=== PATIENT | male | born 1955 | race Caucasian/White ===

== ENCOUNTER → 2017-07-24 15:35 | Outpatient (CLI) | payer MEDICAID, SELFPAY ==
--- NOTE | 2017-07-24 15:35 | DT_ITS ---
This patient was seen during an EMR downtime July 24, 2017 - July 31, 2017. This patient may have a combination of paper and electronic documentation or all paper documentation. All documentation is viewable within the e-chart portion of [employer] for each patient visit.
[2017-07-30 03:30] LABS: Creatinine, Urine (random) < 13.00 mg/dL (NO RANGE EST.)
[2017-07-30 03:31] LABS: Hematocrit 40.8 % (40-54); Hemoglobin 13.6 g/dl (13.0-16.5); Lymphocyte % 18.7 % (19-41); Mean Corp Hgb Conc 33.3 g/gl (32-36); Mean Corpuscular Hgb 30.4 pg (27.0-32.0); Mean Corpuscular Volume 91.1 fL (80-94); Mean Platelet Vol. 11.3 fl (6.2-12.0); Neutrophil % 63.9 % (47-70); POSITIVE COUNT NO; POSITIVE DIFFERENTIAL NO; POSITIVE MORPHOLOGY NO; Platelet Count 254 K/mm3 (150-450); RBC Distribution Width CV 13.7 % (11.6-14.6); Red Blood Count 4.48 M/mm3 (4.6-6.2); White Blood Count 6.6 K/mm3 (4.4-11.0)
[2017-07-30 03:32] LABS: Absolute Lymphocyte Count 1.24 X10^3/ul (0.83-4.51); Absolute Neutrophil Count 4.3 X10^3/uL (2.0-7.7); Basophil# 0.03 X10^3/uL; Basophil% 0.5 % (0-1); Eosinophil# 0.57 X10^3/uL; Eosinophils% 8.6 % (0-5); Lymphocyte # 1.24 X10^3/ul (4.0); Monocyte# 0.54 X10^3/uL; Monocyte% 8.1 % (0-10); Neutrophil # 4.25 X10^3/uL (2.7-7.7)
[2017-07-30 03:59] LABS: Thyroid Stim Hormone (TSH) 1.66 uIU/mL (0.358-3.74)
== END ==
PROVIDERS: Family Provider Family Medicine; PCP Family Medicine; Visit Provider Family Medicine
DX: F20.9 Schizophrenia, unspecified (principal)
CPT/HCPCS: 36415; 80053; 82043; 82570; 84443; 85025

== ENCOUNTER 2017-08-11 21:48 | Emergency (ER) | payer MEDICAID, SELFPAY ==
[2017-08-11 21:50] VITALS: BP 159/102; PULSE 87; PULSE 91; RESP 18; TEMP 36.7; O2SAT 97; O2SAT 98; BMI 20.3
--- NOTE | 2017-08-11 22:23 | EKG12_ITS ---
Test Reason : BED BUGS Blood Pressure : / mmHG Vent. Rate : 076 BPM Atrial Rate : 076 BPM P-R Int : 152 ms QRS Dur : 074 ms QT Int : 396 ms P-R-T Axes : 045 045 050 degrees QTc Int : 445 ms Normal sinus rhythm Normal ECG Confirmed by ZACHERY MONSON, SILVESTRE ([id number]), news editor DEBBIE PHILLIPS ([id number]) on 08/15/2017 10:18:34 AM Referred By: MR Confirmed By:SILVESTRE BINGHAM MD
--- NOTE | 2017-08-11 22:23 | CT_ITS ---
STUDY: CT BRAIN WITHOUT CONTRAST REASON FOR EXAM: Male, 62 years old. Hallucinations. Schizophrenia. RADIATION DOSAGE (If Supplied By Facility): CTDIvol = ( 60.81 ) mGy, DLP = ( 998.67 ) mGycm TECHNIQUE: Transaxial CT imaging of the brain was performed without administration of intravenous contrast material. Individualized dose optimization techniques were used for this CT. COMPARISON: None. FINDINGS: Normal soft tissue structures. Normal calvarium. Normal size ventricles and extra-axial spaces for the patient's age. Normal white matter tracts of the cerebral hemispheres. Normal basal ganglia and thalami. Normal brainstem. Normal cerebellum. There is no intracranial hemorrhage. There are no findings of an acute ischemic infarction. There is mucoperiosteal inflammatory disease of the paranasal sinuses consistent with mild chronic sinusitis. CT/Brain/Head without Contrast IMPRESSION: Normal unenhanced CT scan of the brain. Electronically Signed: Deon Nixon MD at 23:20 EDT , Service support ,
[2017-08-11 22:34] LABS: Absolute Lymphocyte Count 0.89 X10^3/ul (0.83-4.51); Absolute Neutrophil Count 7.4 X10^3/uL (2.0-7.7); Basophil# 0.02 X10^3/uL; Basophil% 0.2 % (0-1); Eosinophils% 3.2 % (0-5); Hematocrit 37.6 % (40-54); Lymphocyte # 0.89 X10^3/ul (4.0); Lymphocyte % 9.5 % (19-41); Mean Corp Hgb Conc 34.6 g/gl (32-36); Mean Corpuscular Volume 86.6 fL (80-94); Mean Platelet Vol. 8.4 fl (6.2-12.0); Monocyte# 0.74 X10^3/uL; Monocyte% 7.9 % (0-10); Neutrophil % 79.1 % (47-70); Platelet Count 356 K/mm3 (150-450); RBC Distribution Width CV 12.8 % (11.6-14.6); RBC Distribution Width SD 41.1 fl (35.1-43.9); Red Blood Count 4.34 M/mm3 (4.6-6.2); White Blood Count 9.4 K/mm3 (4.4-11.0)
[2017-08-11 22:35] LABS: POSITIVE COUNT NO; POSITIVE DIFFERENTIAL NO; POSITIVE MORPHOLOGY NO
--- NOTE | 2017-08-11 22:40 | RAD_ITS ---
STUDY: X-RAY CHEST REASON FOR EXAM: Male, 62 years old. Increased hallucinations and delusions. TECHNIQUE: Single AP portable view of the chest. COMPARISON: None. FINDINGS: The lungs are clear and expanded. There is no demonstrated pleural abnormality. Normal size heart. Normal mediastinum and mark. Normal visualized pulmonary arteries. There is atherosclerotic tortuosity of the aortic arch and descending thoracic aorta. Normal visualized thoracic spine. Normal visualized ribs, clavicles, and shoulders. There is no demonstrated abnormality of the visualized soft tissue structures of the upper abdomen. RAD/Chest 1 View (Portable) IMPRESSION: No acute cardiopulmonary findings. Negative for consolidation, focal atelectasis, cardiomegaly or pleural effusion. Electronically Signed: Vanessa Pollock MD at 23:31 EDT , Service support ,
[2017-08-11 22:42] LABS: Bacteria 0 SEEN /hpf (None Seen); Mucous, Urine 0 SEEN /hpf (<or=2+); Red Blood Cells-Urine 0 SEEN /hpf (0-5); White Blood Cells 0 SEEN /hpf (0-5)
[2017-08-11 22:44] LABS: Color, Urine Yellow (Yellow); Glucose, Dipstick Normal (Normal); Ketone-Dipstick 5 mg/dl (Negative); Leukocyte Esterase-Dipstick Negative /ul (Negative); Nitrite-Dipstick Negative (Negative); Occult Blood-Urine 10 /ul (Negative); Protein-Dipstick Negative (Negative); Specific Gravity, Urine 1.005 (1.002-1.030); Urine Bilirubin Dipstick Negative (Negative); Urine Clarity Clear (Clear); Urine Urobilinogen Normal (Normal)
[2017-08-11 22:50] LABS: Squamous Epithelial Cells - UA 0-5 SEEN /hpf (0-5)
[2017-08-11 22:59] LABS: ALB/GLOB Ratio 0.8 RATIO (0.9-2.4); AST(SGOT) 17 U/L (15-37); Alanine Aminotransfer ALT/SGPT 21 U/L (16-61); Albumin, Serum 3.7 g/dL (3.2-5.0); Alkaline Phosphatase 79 U/L (45-117); Anion Gap 6 (5-15); BUN 9 mg/dL (7-18); BUN/Creat Ratio 9.6 RATIO (10-20); Calcium,Total 8.8 mg/dL (8.5-10.1); Chloride 93 mmol/L (98-107); Creatinine, Serum 0.94 mg/dL (0.70-1.30); EST Glomerular Filtration Rate 86 mL/min (>60); Est Glom Filt Rate - Afr Amer 104 mL/min (>60); Globulin 4.4 g/dL (2.2-4.2); Glucose 140 mg/dL (74-106); Potassium 3.1 mmol/L (3.5-5.1); Protein, Total 8.1 g/dL (6.4-8.2); Sodium Level 129 mmol/L (136-145); Thyroid Stim Hormone (TSH) 0.65 uIU/mL (0.358-3.74)
[2017-08-11 23:01] LABS: Amphetamine Urine VISTA NEGATIVE (<1000 ng/mL); Barbiturate Urine VISTA NEGATIVE (< 200 ng/mL); Benzodiazepine Urine VISTA NEGATIVE (< 200 ng/mL); Cocaine Urine VISTA NEGATIVE (< 300 ng/mL); Ecstacy Urine VISTA NEGATIVE (< 500 ng/mL); Methadone Urine VISTA NEGATIVE (< 300 ng/mL); PCP Urine VISTA NEGATIVE (< 25 ng/mL); THC Urine VISTA NEGATIVE (< 50 ng/mL); Vista UDS pH Range 7
[2017-08-11 23:10] VITALS: BP 172/87; PULSE 79; RESP 16; O2SAT 96
[2017-08-11] MEDS: 0.9% Normal Saline 1,000 ML 999 ML IV (23:57)
[2017-08-12 01:26] VITALS: BP 172/88; PULSE 80; RESP 17; O2SAT 97
--- NOTE | 2017-08-12 01:40 | ED.RN ---
PT WAS GIVEN A COMPLETE BATH AND MOVED TO A CLEAN ROOM. NO BED BUGS SEEN AT THIS TIME.
[2017-08-12 02:29] VITALS: RESP 18; O2SAT 99
--- NOTE | 2017-08-12 02:29 | ED.VISSUMM ---
- ER Visit Summary Date of Service: 08/12/17 Chief Complaint: Psychiatric evaluation History of Present Illness: The patient is a 62 M presenting for psych eval. Patient has an underlying history of dementia and schizophrenia. He used to be institutionalized in [place] but the hospital closed. Family states that over the course of the last 2 weeks he has been having worsening delusions. Today he was having episodes where he would not talk to them and also was laying on the ground and would not move. They deny any recent infectious signs or symptoms associated with this. History is unable to be obtained from the patient. Physical Examination: Vital signs are within normal limits except for mild hypertension 172/88, patient is afebrile. General: Patient is well-nourished well-developed and in no acute distress. Head: Normocephalic, atraumatic Eyes: Pupils equal round and reactive bilaterally, extra occular motion intact bialterally ENT: Moist mucous membranes Neck: Supple, no lymphadenopathy, no JVD, no meningismus CVS: Heart regular rate and rhythm, no murmurs, rubs or gallops, radial pulses 2+ bilaterally Resp: Respirations nondistressed, lung sounds clear bilaterally Abdomen: Soft, nontender, nondistended, no palpable masses, normal bowel sounds Back: Nontender Extremities: Nontender, atraumatic, active full range of motion, no peripheral edema Skin: warm, no rashes, no petechia Neuro: Alert and oriented x 4, CN 2-12 intact, no lateralizing neurological defecits Psyc: Patient's mood is labile with incoherent thoughts delusions poor insight and poor judgment Test Results: EKG shows sinus rhythm [address] segments normal T waves. CBC liver panel urinalysis toxicology ethanol screens unremarkable. Chemistry shows mild hyponatremia 129 mild hypokalemia 3.1, chest x-ray shows chronic changes CT of the brain negative Emergency Department Course and Treatment: Patient presented for psychiatric evaluation. He very clearly has a psychotic break at this time. He was mildly hyponatremic and hypokalemic and these were dressed in the emergency department he was cleared for psychiatric evaluation. Patient will be transferred to a psychiatric center for further treatment Disposition: Transfer Impression: 1. Psychosis This note was generated with [employer] software. It may contain incorrect words, spelling, and punctuation that were not noted in review of the chart prior to signing ED Disposition - Plan for ED Patient: Chief Complaint: Mental Health Referrals: Javid Graf MD [Primary Care Provider] -
[2017-08-12 03:03] VITALS: BP 143/90; PULSE 80; PULSE 90; RESP 18; O2SAT 95; O2SAT 98
== END 2017-08-12 03:08 ==
LOC: ED 22:03
PROVIDERS: Emergency Provider Emergency Medicine; Family Provider Family Medicine; PCP Family Medicine
DX: F29 Unspecified psychosis not due to a substance or known physiological condition (principal); F20.9 Schizophrenia, unspecified; F03.90 Unspecified dementia, unspecified severity, without behavioral disturbance, psychotic disturbance, mood disturbance, and anxiety; I10 Essential (primary) hypertension; E87.1 Hypo-osmolality and hyponatremia; E87.6 Hypokalemia; Z79.82 Long term (current) use of aspirin; Z79.899 Other long term (current) drug therapy
CPT/HCPCS: 70450; 71045; 80053; 80307; 80320; 81001; 84443; 84484; 85025; 93005; 99283; J7030; A4216; G0480

== ENCOUNTER → 2018-07-30 15:11 | Outpatient (CLI) | payer MEDICAID, SELFPAY ==
[2018-07-30 16:08] LABS: Absolute Lymphocyte Count 0.96 X10^3/ul (0.83-4.51); Absolute Neutrophil Count 3.7 X10^3/uL (2.0-7.7); Basophil# 0.02 X10^3/uL; Basophil% 0.4 % (0-1); Eosinophil# 0.22 X10^3/uL; Eosinophils% 4.2 % (0-5); Hematocrit 34.8 % (40-54); Hemoglobin 12.2 g/dl (13.0-16.5); Lymphocyte # 0.96 X10^3/ul (4.0); Lymphocyte % 18.2 % (19-41); Mean Corp Hgb Conc 35.1 g/gl (32-36); Mean Corpuscular Hgb 30.7 pg (27.0-32.0); Mean Corpuscular Volume 87.4 fL (80-94); Mean Platelet Vol. 8.3 fl (6.2-12.0); Monocyte# 0.39 X10^3/uL; Monocyte% 7.4 % (0-10); Neutrophil # 3.67 X10^3/uL (2.7-7.7); Neutrophil % 69.6 % (47-70); Platelet Count 292 K/mm3 (150-450); RBC Distribution Width CV 12.3 % (11.6-14.6); RBC Distribution Width SD 39.6 fl (35.1-43.9); Red Blood Count 3.98 M/mm3 (4.6-6.2); White Blood Count 5.3 K/mm3 (4.4-11.0)
[2018-07-30 16:09] LABS: POSITIVE COUNT NO; POSITIVE DIFFERENTIAL NO; POSITIVE MORPHOLOGY NO
[2018-07-30 16:37] LABS: Valproic Acid (Depakene) Level 4 ug/mL (50-100)
[2018-07-30 16:46] LABS: ALB/GLOB Ratio 0.8 RATIO (0.9-2.4); AST(SGOT) 16 U/L (15-37); Alanine Aminotransfer ALT/SGPT 22 U/L (16-61); Albumin, Serum 3.3 g/dL (3.2-5.0); Alkaline Phosphatase 69 U/L (45-117); Anion Gap 10 (5-15); BUN 8 mg/dL (7-18); BUN/Creat Ratio 9.8 RATIO (10-20); Calcium,Total 8.3 mg/dL (8.5-10.1); Chloride 101 mmol/L (98-107); Creatinine, Serum 0.82 mg/dL (0.70-1.30); EST Glomerular Filtration Rate 100 mL/min (>60); Est Glom Filt Rate - Afr Amer 122 mL/min (>60); Globulin 4.1 g/dL (2.2-4.2); Glucose 93 mg/dL (74-106); Potassium 3.7 mmol/L (3.5-5.1); Protein, Total 7.4 g/dL (6.4-8.2); Sodium Level 137 mmol/L (136-145); Thyroid Stim Hormone (TSH) 0.45 uIU/mL (0.358-3.74)
== END ==
PROVIDERS: Family Provider Family Medicine; PCP Family Medicine; Visit Provider Family Medicine
DX: F20.9 Schizophrenia, unspecified (principal); G47.20 Circadian rhythm sleep disorder, unspecified type
CPT/HCPCS: 36415; 80053; 80164; 84443; 85025

== ENCOUNTER → 2018-08-27 13:51 | Outpatient (CLI) | payer MEDICAID, SELFPAY ==
[2018-08-27 15:38] LABS: Absolute Lymphocyte Count 0.79 X10^3/ul (0.83-4.51); Absolute Neutrophil Count 4.4 X10^3/uL (2.0-7.7); Basophil# 0.01 X10^3/uL; Basophil% 0.2 % (0-1); Eosinophil# 0.14 X10^3/uL; Eosinophils% 2.4 % (0-5); Hematocrit 32.1 % (40-54); Hemoglobin 11.5 g/dl (13.0-16.5); Lymphocyte # 0.79 X10^3/ul (4.0); Lymphocyte % 13.3 % (19-41); Mean Corp Hgb Conc 35.8 g/gl (32-36); Mean Corpuscular Hgb 30.3 pg (27.0-32.0); Mean Corpuscular Volume 84.5 fL (80-94); Mean Platelet Vol. 10.2 fl (6.2-12.0); Monocyte# 0.62 X10^3/uL; Monocyte% 10.5 % (0-10); Neutrophil # 4.35 X10^3/uL (2.7-7.7); Neutrophil % 73.3 % (47-70); Platelet Count 185 K/mm3 (150-450); RBC Distribution Width CV 12.1 % (11.6-14.6); RBC Distribution Width SD 36.6 fl (35.1-43.9); White Blood Count 5.9 K/mm3 (4.4-11.0)
[2018-08-27 15:43] LABS: POSITIVE COUNT NO; POSITIVE DIFFERENTIAL NO; POSITIVE MORPHOLOGY NO
[2018-08-27 15:50] LABS: ALB/GLOB Ratio 0.9 RATIO (0.9-2.4); AST(SGOT) 22 U/L (15-37); Alanine Aminotransfer ALT/SGPT 20 U/L (16-61); Alkaline Phosphatase 55 U/L (45-117); Anion Gap 10 (5-15); BUN 6 mg/dL (7-18); BUN/Creat Ratio 8.7 RATIO (10-20); Calcium,Total 8.1 mg/dL (8.5-10.1); Chloride 86 mmol/L (98-107); Creatinine, Serum 0.69 mg/dL (0.70-1.30); Creatinine, Urine (random) < 13.00 mg/dL (NO RANGE EST.); EST Glomerular Filtration Rate 122 mL/min (>60); Est Glom Filt Rate - Afr Amer 147 mL/min (>60); Globulin 3.5 g/dL (2.2-4.2); Glucose 75 mg/dL (74-106); Microalbumin,Random Urine < 5.0 mg/L (NO RANGE EST.); Potassium 2.9 mmol/L (3.5-5.1); Protein, Total 6.5 g/dL (6.4-8.2); Sodium Level 125 mmol/L (136-145); Thyroid Stim Hormone (TSH) 0.54 uIU/mL (0.358-3.74)
== END ==
PROVIDERS: Family Provider Family Medicine; PCP Family Medicine; Visit Provider Family Medicine
DX: F20.9 Schizophrenia, unspecified (principal)
CPT/HCPCS: 36415; 80053; 82043; 82570; 84443; 85025

== ENCOUNTER → 2018-08-29 13:41 | Outpatient (CLI) | payer MEDICAID, SELFPAY ==
[2018-08-29 15:33] LABS: Urine Sodium 14 mmol/L (Not Establ.)
[2018-08-29 15:44] LABS: Anion Gap 8 (5-15); BUN 5 mg/dL (7-18); BUN/Creat Ratio 6.9 RATIO (10-20); Calcium,Total 8.2 mg/dL (8.5-10.1); Chloride 94 mmol/L (98-107); Creatinine, Serum 0.72 mg/dL (0.70-1.30); EST Glomerular Filtration Rate 116 mL/min (>60); Est Glom Filt Rate - Afr Amer 140 mL/min (>60); Glucose 82 mg/dL (74-106); Magnesium 1.8 mg/dL (1.6-2.6); Potassium 3.5 mmol/L (3.5-5.1); Sodium Level 130 mmol/L (136-145)
== END ==
PROVIDERS: Family Provider Family Medicine; PCP Family Medicine; Visit Provider Family Medicine
DX: E87.8 Other disorders of electrolyte and fluid balance, not elsewhere classified (principal)
CPT/HCPCS: 36415; 80048; 83735; 84300

== ENCOUNTER → 2018-12-24 16:16 | Outpatient (CLI) | payer MEDICAID, SELFPAY ==
[2018-12-24 17:32] LABS: Hematocrit 42.1 % (40-54); Hemoglobin 13.6 g/dL (13.0-16.5); Mean Corp Hgb Conc 32.3 g/dL (32-36); Mean Corpuscular Hgb 30.2 pg (27.0-32.0); Mean Corpuscular Volume 93.6 fL (80-94); Mean Platelet Vol. 9.4 fl (6.2-12.0); Platelet Count 251 K/mm3 (150-450); RBC Distribution Width SD 44.5 fl (35.1-43.9); White Blood Count 6.6 K/mm3 (4.4-11.0)
[2018-12-24 18:23] LABS: ALB/GLOB Ratio 0.9 RATIO (0.9-2.4); AST(SGOT) 11 U/L (15-37); Alanine Aminotransfer ALT/SGPT 22 U/L (16-61); Albumin, Serum 3.5 g/dL (3.2-5.0); Alkaline Phosphatase 83 U/L (45-117); Anion Gap 8 (5-15); BUN 11 mg/dL (7-18); BUN/Creat Ratio 8.5 RATIO (10-20); Chloride 106 mmol/L (98-107); Creatinine, Serum 1.29 mg/dL (0.70-1.30); EST Glomerular Filtration Rate 59 mL/min (>60); Est Glom Filt Rate - Afr Amer 72 mL/min (>60); Globulin 3.9 g/dL (2.2-4.2); Glucose 94 mg/dL (74-106); Potassium 3.7 mmol/L (3.5-5.1); Protein, Total 7.4 g/dL (6.4-8.2); Sodium Level 142 mmol/L (136-145); T4 Free Direct 0.77 ng/dL (0.76-1.46); Thyroid Stim Hormone (TSH) 1.84 uIU/mL (0.358-3.74)
== END ==
PROVIDERS: Family Provider Family Medicine; PCP Family Medicine; Visit Provider Family Medicine
DX: F20.9 Schizophrenia, unspecified (principal)
CPT/HCPCS: 36415; 80053; 80178; 84439; 84443; 85027

== ENCOUNTER → 2019-03-25 16:11 | Outpatient (CLI) | payer MEDICAID, SELFPAY ==
[2019-03-25 17:34] LABS: Absolute Lymphocyte Count 1.12 X10^3/uL (0.83-4.51); Absolute Neutrophil Count 5.3 X10^3/uL (2.0-7.7); Basophil# 0.04 X10^3/uL; Basophil% 0.6 % (0-1); Eosinophil# 0.29 X10^3/uL; Eosinophils% 4.1 % (0-5); Hematocrit 36.7 % (40-54); Lymphocyte # 1.12 X10^3/ul (4.0); Lymphocyte % 15.7 % (19-41); Mean Corp Hgb Conc 32.7 g/dL (32-36); Mean Corpuscular Hgb 30.8 pg (27.0-32.0); Mean Corpuscular Volume 94.3 fL (80-94); Monocyte# 0.42 X10^3/uL; Monocyte% 5.9 % (0-10); NRBC Flagged by Analyzer 0 % (0-5); Neutrophil # 5.25 X10^3/uL (2.7-7.7); Neutrophil % 73.4 % (47-70); Platelet Count 296 K/mm3 (150-450); RBC Distribution Width CV 13.4 % (11.6-14.6); RBC Distribution Width SD 46.3 fl (35.1-43.9); Red Blood Count 3.89 M/mm3 (4.6-6.2); White Blood Count 7.1 K/mm3 (4.4-11.0)
[2019-03-25 17:43] LABS: Erythrocyte Sedimentation Rate 8 mm/hr (0-20)
[2019-03-25 18:11] LABS: ALB/GLOB Ratio 0.9 RATIO (0.9-2.4); AST(SGOT) 9 U/L (15-37); Alanine Aminotransfer ALT/SGPT 18 U/L (16-61); Albumin, Serum 3.4 g/dL (3.2-5.0); Alkaline Phosphatase 97 U/L (45-117); Anion Gap 2 (5-15); BUN 13 mg/dL (7-18); BUN/Creat Ratio 9.8 RATIO (10-20); Calcium,Total 8.7 mg/dL (8.5-10.1); Chloride 107 mmol/L (98-107); Creatinine, Serum 1.33 mg/dL (0.70-1.30); EST Glomerular Filtration Rate 57 mL/min (>60); Est Glom Filt Rate - Afr Amer 69 mL/min (>60); Globulin 3.6 g/dL (2.2-4.2); Glucose 102 mg/dL (74-106); Potassium 3.7 mmol/L (3.5-5.1); Sodium Level 137 mmol/L (136-145)
== END ==
PROVIDERS: PCP Family Medicine; Referring Provider Family Medicine; Visit Provider Family Medicine
DX: R63.4 Abnormal weight loss (principal); F20.9 Schizophrenia, unspecified
CPT/HCPCS: 36415; 80053; 80178; 84443; 85025; 85652

== ENCOUNTER → 2019-05-06 11:44 | Outpatient (CLI) | payer MEDICAID, SELFPAY ==
[2019-05-06 15:46] LABS: Absolute Lymphocyte Count 0.82 X10^3/uL (0.83-4.51); Absolute Neutrophil Count 5.4 X10^3/uL (2.0-7.7); Basophil# 0.04 X10^3/uL; Basophil% 0.6 % (0-1); Eosinophil# 0.38 X10^3/uL; Eosinophils% 5.4 % (0-5); Hematocrit 39.2 % (40-54); Hemoglobin 12.5 g/dL (13.0-16.5); Lymphocyte # 0.82 X10^3/ul (4.0); Lymphocyte % 11.7 % (19-41); Mean Corp Hgb Conc 31.9 g/dL (32-36); Mean Corpuscular Hgb 31.2 pg (27.0-32.0); Mean Corpuscular Volume 97.8 fL (80-94); Mean Platelet Vol. 9.6 fl (6.2-12.0); Monocyte# 0.36 X10^3/uL; Monocyte% 5.1 % (0-10); NRBC Flagged by Analyzer 0 % (0-5); Neutrophil # 5.42 X10^3/uL (2.7-7.7); Neutrophil % 77.1 % (47-70); Platelet Count 335 K/mm3 (150-450); RBC Distribution Width CV 14.5 % (11.6-14.6); RBC Distribution Width SD 52.2 fl (35.1-43.9); Red Blood Count 4.01 M/mm3 (4.6-6.2)
[2019-05-06 16:14] LABS: AST(SGOT) 29 U/L (15-37); Alanine Aminotransfer ALT/SGPT 23 U/L (16-61); Albumin, Serum 3.9 g/dL (3.2-5.0); Alkaline Phosphatase 91 U/L (45-117); Anion Gap 7 (5-15); BUN 17 mg/dL (7-18); Calcium,Total 8.9 mg/dL (8.5-10.1); Chloride 103 mmol/L (98-107); Creatinine, Serum 1.06 mg/dL (0.70-1.30); EST Glomerular Filtration Rate 74 mL/min (>60); Est Glom Filt Rate - Afr Amer 90 mL/min (>60); Globulin 3.9 g/dL (2.2-4.2); Glucose 74 mg/dL (74-106); Potassium 3.4 mmol/L (3.5-5.1); Protein, Total 7.8 g/dL (6.4-8.2); Sodium Level 137 mmol/L (136-145)
== END ==
PROVIDERS: PCP Family Medicine; Referring Provider Family Medicine; Visit Provider Family Medicine
DX: F20.9 Schizophrenia, unspecified (principal)
CPT/HCPCS: 36415; 80053; 80178; 85025

== ENCOUNTER → 2019-06-19 16:49 | Outpatient (CLI) | payer MEDICAID, SELFPAY ==
[2019-06-19 17:35] LABS: Absolute Neutrophil Count 7.4 X10^3/uL (2.0-7.7); Basophil# 0.03 X10^3/uL; Basophil% 0.3 % (0-1); Eosinophil# 0.12 X10^3/uL; Eosinophils% 1.3 % (0-5); Hematocrit 40.5 % (40-54); Mean Corp Hgb Conc 32.1 g/dL (32-36); Mean Corpuscular Volume 96.4 fL (80-94); Mean Platelet Vol. 8.8 fl (6.2-12.0); Monocyte# 0.49 X10^3/uL; Monocyte% 5.3 % (0-10); NRBC Flagged by Analyzer 0 % (0-5); Neutrophil # 7.35 X10^3/uL (2.7-7.7); Neutrophil % 79.8 % (47-70); Platelet Count 361 K/mm3 (150-450); RBC Distribution Width CV 13.2 % (11.6-14.6); RBC Distribution Width SD 46.9 fl (35.1-43.9); White Blood Count 9.2 K/mm3 (4.4-11.0)
[2019-06-19 18:09] LABS: AST(SGOT) 18 U/L (15-37); Alanine Aminotransfer ALT/SGPT 18 U/L (16-61); Albumin, Serum 3.9 g/dL (3.2-5.0); Alkaline Phosphatase 84 U/L (45-117); Anion Gap 8 (5-15); BUN 10 mg/dL (7-18); BUN/Creat Ratio 10.4 RATIO (10-20); Calcium,Total 9.1 mg/dL (8.5-10.1); Chloride 105 mmol/L (98-107); Creatinine, Serum 0.96 mg/dL (0.70-1.30); EST Glomerular Filtration Rate 83 mL/min (>60); Est Glom Filt Rate - Afr Amer 101 mL/min (>60); Glucose 89 mg/dL (74-106); Potassium 3.2 mmol/L (3.5-5.1); Protein, Total 7.9 g/dL (6.4-8.2); Sodium Level 139 mmol/L (136-145)
== END ==
PROVIDERS: PCP Family Medicine; Referring Provider Family Medicine; Visit Provider Family Medicine
DX: F20.9 Schizophrenia, unspecified (principal)
CPT/HCPCS: 36415; 80053; 80178; 85025

== ENCOUNTER → 2019-07-10 17:00 | Outpatient (CLI) | payer MEDICAID, SELFPAY ==
[2019-07-10 18:48] LABS: ALB/GLOB Ratio 0.9 RATIO (0.9-2.4); AST(SGOT) 13 U/L (15-37); Alanine Aminotransfer ALT/SGPT 17 U/L (16-61); Albumin, Serum 3.4 g/dL (3.2-5.0); Alkaline Phosphatase 73 U/L (45-117); Anion Gap 6 (5-15); BUN 12 mg/dL (7-18); BUN/Creat Ratio 13.3 RATIO (10-20); Calcium,Total 8.9 mg/dL (8.5-10.1); Chloride 108 mmol/L (98-107); EST Glomerular Filtration Rate 89 mL/min (>60); Est Glom Filt Rate - Afr Amer 108 mL/min (>60); Globulin 3.8 g/dL (2.2-4.2); Glucose 89 mg/dL (74-106); Magnesium 2.3 mg/dL (1.6-2.6); Potassium 3.6 mmol/L (3.5-5.1); Protein, Total 7.2 g/dL (6.4-8.2); Sodium Level 141 mmol/L (136-145)
== END ==
PROVIDERS: PCP Family Medicine; Referring Provider Family Medicine; Visit Provider Family Medicine
DX: F20.9 Schizophrenia, unspecified (principal)
CPT/HCPCS: 36415; 80053; 80178; 83735

== ENCOUNTER → 2019-12-17 14:27 | Outpatient (CLI) | payer MEDICAID, SELFPAY ==
[2019-12-17 17:52] LABS: Hematocrit 40.4 % (40-54); Hemoglobin 12.5 g/dL (13.0-16.5); Mean Corp Hgb Conc 30.9 g/dL (32-36); Mean Corpuscular Hgb 30.1 pg (27.0-32.0); Mean Corpuscular Volume 97.3 fL (80-94); Mean Platelet Vol. 10.5 fl (6.2-12.0); Platelet Count 296 K/mm3 (150-450); RBC Distribution Width CV 13.2 % (11.6-14.6); RBC Distribution Width SD 47.2 fl (35.1-43.9); Red Blood Count 4.15 M/mm3 (4.6-6.2); White Blood Count 4.6 K/mm3 (4.4-11.0)
[2019-12-17 18:17] LABS: ALB/GLOB Ratio 0.9 RATIO (0.9-2.4); AST(SGOT) 14 U/L (15-37); Alanine Aminotransfer ALT/SGPT 19 U/L (16-61); Albumin, Serum 3.7 g/dL (3.2-5.0); Alkaline Phosphatase 80 U/L (45-117); Anion Gap 7 (5-15); BUN 10 mg/dL (7-18); BUN/Creat Ratio 10.5 RATIO (10-20); Calcium,Total 8.5 mg/dL (8.5-10.1); Chloride 108 mmol/L (98-107); Creatinine, Serum 0.96 mg/dL (0.70-1.30); EST Glomerular Filtration Rate 84 mL/min (>60); Est Glom Filt Rate - Afr Amer 101 mL/min (>60); Glucose 88 mg/dL (74-106); Potassium 3.7 mmol/L (3.5-5.1); Protein, Total 7.7 g/dL (6.4-8.2); Sodium Level 142 mmol/L (136-145); Thyroid Stim Hormone (TSH) 2.27 uIU/mL (0.358-3.74)
== END ==
PROVIDERS: PCP Family Medicine; Referring Provider Family Medicine; Visit Provider Family Medicine
DX: F20.9 Schizophrenia, unspecified (principal)
CPT/HCPCS: 36415; 80053; 80178; 84443; 85027

== ENCOUNTER 2020-08-05 14:19 | Emergency (ER) | payer MEDICAID, SELFPAY ==
[2020-08-05 14:20] VITALS: BP 132/88; PULSE 77; RESP 15; TEMP 37; O2SAT 98; BMI 19.3
--- NOTE | 2020-08-05 14:34 | RAD_ITS ---
STUDY: X-RAY CHEST REASON FOR EXAM: Male, 65 years old. Cough TECHNIQUE: Single AP portable view of the chest. COMPARISON: Comparison is made with prior study dated the 2017. FINDINGS: Focal atelectasis and/or infiltrate in the left lower lobe. There is no demonstrated pleural abnormality. Normal size heart. Normal mediastinum and mark. Normal visualized pulmonary arteries. Normal visualized aortic arch and descending thoracic aorta. Normal visualized thoracic spine. Normal visualized ribs, clavicles, and shoulders. There is no demonstrated abnormality of the visualized soft tissue structures of the upper abdomen. RAD/Chest 1 View (Portable) IMPRESSION: Focal atelectasis and/or infiltrate in the left lower lobe. Electronically Signed: Luis Rayo MD at 15:00 EDT , Service support ,
--- NOTE | 2020-08-05 14:34 | EX.ED.DYSGE1 ---
HPI History of Present Illness Chief Complaint: Cough Informant: patient and family Narrative Narrative: 65-year-old male states that he has a family member that is admitted to the hospital with Covid. He states that he has developed a cough for the past several days. He notes dry mouth but no other symptoms. He notes the cough is nonproductive. He states that he was informed he should come to the emergency room and be tested for Covid PFS PFS Home Medications aspirin 325 mg PO DAILY@0800 08/11/17 [History Last Taken Unknown] famotidine [Pepcid] 20 mg PO BID 08/11/17 [History Last Taken Unknown] guanfacine 2 mg PO DAILY 08/11/17 [History Last Taken Unknown] melatonin-pyridoxine (vit B6) [Melatonin 5 mg Tablet] 1 ea PO BID 08/11/17 [History Last Taken Unknown] quetiapine [Seroquel] 300 mg PO DAILY 08/11/17 [History Last Taken Unknown] risperidone [Risperdal] 3 mg PO BID 08/11/17 [History Last Taken Unknown] Allergy/AdvReac Type Severity Reaction Status Date / Time No Known Allergies Allergy Verified 04/20/15 08:17 Social History (Updated 08/05/20 @ 14:[address] Dami Monge, DO) Smoking Status: Former smoker substance use type: does not use ROS ROS ED Constitutional Constitutional ED: Denies chills or weight loss Eyes Eyes: Denies change in vision or diplopia ENT ENT ED: Reports other Details: Dry mouth ; Denies ear pain, rhinorrhea or sore throat Cardiovascular Cardiovascular: Denies chest pain, orthopnea, palpitations or racing heartbeat Respiratory/Chest Respiratory/Chest: Reports cough; Denies dyspnea, dyspnea on exertion, orthopnea or sputum Gastrointestinal Gastrointestinal: Denies abdominal pain, diarrhea, nausea or vomiting Genitourinary Genitourinary ED: Denies dysuria, hematuria or urinary frequency Musculoskeletal Musculoskeletal: Denies arthralgias or myalgias Integumentary Denies abscess or rash Neurologic Neurologic: Denies headache(s) or weakness Psychiatric Psychiatric: Denies anxiety, depression, suicidal ideation or suicidal thoughts Endocrine Endocrinology: Denies polydipsia, polyphagia or polyuria Allergic/Immunologic Allergic/Immunologic ED: Denies mouth swelling, tongue swelling or urticaria EXAM Physical Exam Const Vital Signs: 08/05/20 14:20 08/05/20 14:27 Temperature 98.6 F Temperature Source Temporal Pulse Rate 77 Respiratory Rate 15 Respiratory Effort Normal Non-Labored Respiratory Depth Normal Respiratory Pattern Normal Blood Pressure 132/88 H Blood Pressure Mean 102 Pulse Ox 98 Oxygen Delivery Method Room Air Positive well nourished and well developed General Appearance ED: well developed HEENT Reports normocephalic, head/scalp atraumatic and moist mucous membranes Eyes PERRL and EOMs intact bilaterally Neck no lymphadenopathy, supple and no JVD Resp normal respiratory effort and clear to auscultation bilaterally Cardio regular rate, regular rhythm and no murmurs GI normal to inspection, nondistended, normoactive bowel sounds and non-tender Palpation: soft Back/Spine no CVA tenderness and normal ROM Extremity normal to inspection General Extremety ED: Negative for edema General Extremity: Negative for edema Neuro oriented x3 and CN's II-XII intact bilaterally Sensorium / Orientation: alert Motor Exam: strength 5/5 throughout Psych mental status grossly normal Mood & Affect: Negative for depressed or tearful Skin no rashes or lesions noted and no wounds MDM MDM MDM Narrative Medical decision making narrative: My impression of the single view portable chest x-ray is focal infiltrate/atelectasis at the left lung base. Radiology concurs. His Covid test is positive. Patient will be referred for monoclonal antibody infusion if he qualifies. Self-care and isolation at home. Radiography Diagnostic Testing: Radiology Impression Chest X-Ray 08/05/20 14:34 IMPRESSION: Focal atelectasis and/or infiltrate in the left lower lobe. Electronically Signed: Luis Rayo MD at 15:00 EDT , Service support , Discharge Plan Triage Chief Complaint: Cough ED Provider: Dami Monge Dx/Rx/DC Orders Clinical Impression: COVID-19 Instructions: Coronavirus Disease 2019 (COVID-19): Caring for Yourself or Others Prescriptions: No Action quetiapine [Seroquel] 300 MG tablet 300 mg PO DAILY RF: 0 aspirin 325 MG tablet 325 mg PO DAILY@0800 RF: 0 risperidone [Risperdal] 3 MG tablet 3 mg PO BID RF: 0 famotidine [Pepcid] 20 MG tablet 20 mg PO BID RF: 0 melatonin-pyridoxine (vit B6) [Melatonin (with B6)] 1 EACH tablet 1 ea PO BID RF: 0 guanfacine 2 MG Tab.Er.24h 2 mg PO DAILY RF: 0 Primary Care Provider: Javid Graf Referrals: Javid Graf MD [Primary Care Provider] - As Needed Activity Restrictions/Additional Instructions: I have put a referral in for you to possibly receive monoclonal antibody infusion. The pulmonology department here at the hospital will be in contact with you. Disposition Disposition: Home, self care
[2020-08-05 15:35] VITALS: PULSE 72; RESP 15; O2SAT 98
== END 2020-08-05 15:35 | disposition home or self-care (01) ==
LOC: ED 15:25
PROVIDERS: Emergency Provider Emergency Medicine; PCP Family Medicine
DX: U07.1 COVID-19 (principal); Z79.82 Long term (current) use of aspirin; Z79.899 Other long term (current) drug therapy; Z87.891 Personal history of nicotine dependence
CPT/HCPCS: 71045; 87426; 99282

== ENCOUNTER → 2020-09-28 15:40 | Outpatient (CLI) | payer MEDICAID, SELFPAY ==
[2020-08-24 13:22] VITALS: BMI 21.9
[2020-09-28 16:15] LABS: Absolute Lymphocyte Count 1.42 X10^3/uL (0.83-4.51); Absolute Neutrophil Count 5.1 X10^3/uL (2.0-7.7); Basophil# 0.02 X10^3/uL; Basophil% 0.3 % (0-1); Eosinophil# 0.35 X10^3/uL; Eosinophils% 4.8 % (0-5); Hematocrit 37.7 % (40-54); Hemoglobin 12.6 g/dL (13.0-16.5); Lymphocyte # 1.42 X10^3/ul (0.83-4.51); Lymphocyte % 19.3 % (19-41); Mean Corp Hgb Conc 33.4 g/dL (32-36); Mean Corpuscular Hgb 30.6 pg (27.0-32.0); Mean Corpuscular Volume 91.5 fL (80-94); Mean Platelet Vol. 8.8 fl (6.2-12.0); Monocyte# 0.43 X10^3/uL; Monocyte% 5.9 % (0-10); NRBC Flagged by Analyzer 0 % (0-5); Neutrophil # 5.09 X10^3/uL (2.7-7.7); Neutrophil % 69.3 % (47-70); Platelet Count 332 K/mm3 (150-450); RBC Distribution Width CV 13.4 % (11.6-14.6); RBC Distribution Width SD 45.6 fl (35.1-43.9); Red Blood Count 4.12 M/mm3 (4.6-6.2); White Blood Count 7.3 K/mm3 (4.4-11.0)
[2020-09-28 16:40] LABS: ALB/GLOB Ratio 0.9 RATIO (0.9-2.4); AST(SGOT) 23 U/L (15-37); Alanine Aminotransfer ALT/SGPT 25 U/L (16-61); Albumin, Serum 3.5 g/dL (3.2-5.0); Alkaline Phosphatase 73 U/L (45-117); BUN 7 mg/dL (7-18); BUN/Creat Ratio 7.7 RATIO (10-20); Calcium,Total 8.4 mg/dL (8.5-10.1); Creatinine, Serum 0.91 mg/dL (0.70-1.30); EST Glomerular Filtration Rate 88 mL/min (>60); Est Glom Filt Rate - Afr Amer 106 mL/min (>60); Globulin 3.7 g/dL (2.2-4.2); Glucose 100 mg/dL (74-106); Protein, Total 7.2 g/dL (6.4-8.2); Sodium Level 141 mmol/L (136-145)
[2020-09-28 16:41] LABS: Anion Gap 7 (5-15); Chloride 104 mmol/L (98-107); Potassium 2.9 mmol/L (3.5-5.1); Thyroid Stim Hormone (TSH) 1.14 uIU/mL (0.358-3.74)
== END ==
PROVIDERS: PCP Family Medicine; Referring Provider Family Medicine; Visit Provider Family Medicine
DX: F20.9 Schizophrenia, unspecified (principal)
CPT/HCPCS: 36415; 80053; 82140; 84443; 85025

== ENCOUNTER 2020-12-03 17:43 | Emergency (ER) | payer MEDICAID, SELFPAY ==
[2020-12-03 17:43] VITALS: BP 183/107; PULSE 73; RESP 14; TEMP 36.3; O2SAT 97; BMI 22.4
[2020-12-03 18:27] LABS: Absolute Lymphocyte Count 1.52 X10^3/uL (0.83-4.51); Absolute Neutrophil Count 7.2 X10^3/uL (2.0-7.7); Basophil# 0.03 X10^3/uL; Basophil% 0.3 % (0-1); Eosinophil# 0.51 X10^3/uL; Eosinophils% 5.2 % (0-5); Hematocrit 38.4 % (40-54); Hemoglobin 12.8 g/dL (13.0-16.5); Lymphocyte # 1.52 X10^3/ul (0.83-4.51); Lymphocyte % 15.4 % (19-41); Mean Corp Hgb Conc 33.3 g/dL (32-36); Mean Corpuscular Hgb 30.7 pg (27.0-32.0); Mean Corpuscular Volume 92.1 fL (80-94); Mean Platelet Vol. 8.6 fl (6.2-12.0); Monocyte# 0.54 X10^3/uL; Monocyte% 5.5 % (0-10); NRBC Flagged by Analyzer 0 % (0-5); Neutrophil # 7.22 X10^3/uL (2.7-7.7); Neutrophil % 73.2 % (47-70); Platelet Count 362 K/mm3 (150-450); RBC Distribution Width CV 12.9 % (11.6-14.6); RBC Distribution Width SD 43.4 fl (35.1-43.9); Red Blood Count 4.17 M/mm3 (4.6-6.2); White Blood Count 9.9 K/mm3 (4.4-11.0)
[2020-12-03 18:38] LABS: Amphetamine Urine VISTA NEGATIVE (<1000 ng/mL); Barbiturate Urine VISTA NEGATIVE (< 200 ng/mL); Benzodiazepine Urine VISTA NEGATIVE (< 200 ng/mL); Cocaine Urine VISTA NEGATIVE (< 300 ng/mL); Ecstacy Urine VISTA NEGATIVE (< 500 ng/mL); Methadone Urine VISTA NEGATIVE (< 300 ng/mL); PCP Urine VISTA NEGATIVE (< 25 ng/mL); THC Urine VISTA NEGATIVE (< 50 ng/mL); Vista UDS pH Range 6
[2020-12-03 18:41] LABS: ALB/GLOB Ratio 0.8 RATIO (0.9-2.4); AST(SGOT) 14 U/L (15-37); Alanine Aminotransfer ALT/SGPT 22 U/L (16-61); Albumin, Serum 3.5 g/dL (3.2-5.0); Alkaline Phosphatase 85 U/L (45-117); Anion Gap 5 (5-15); BUN 12 mg/dL (7-18); BUN/Creat Ratio 11.2 RATIO (10-20); Calcium,Total 8.9 mg/dL (8.5-10.1); Chloride 106 mmol/L (98-107); Creatinine, Serum 1.07 mg/dL (0.70-1.30); EST Glomerular Filtration Rate 73 mL/min (>60); Est Glom Filt Rate - Afr Amer 89 mL/min (>60); Estimated Creatinine Clearance 47.38 ml/min; Globulin 4.4 g/dL (2.2-4.2); Glucose 96 mg/dL (74-106); Potassium 3.3 mmol/L (3.5-5.1); Protein, Total 7.9 g/dL (6.4-8.2); Sodium Level 140 mmol/L (136-145)
[2020-12-03 19:17] LABS: Alcohol, Blood (Medical)-Serum < 3.0 mg/dL; Valproic Acid (Depakene) Level < 3 ug/mL (50-100)
--- NOTE | 2020-12-03 19:26 | EX.ED.VIS.PS ---
HPI HPI - Psych History of Present Illness Chief Complaint: Mental Health Narrative Narrative: 65-year-old male presenting with lana from Dr. Graf's office. The patient's sister is his POA. She states that last night when trying to make him go to bed at midnight he became very angry and started smashing things around the house. She states that he was up all night. Better follow-up visit with Dr. Graf today. He felt he was manic. Patient states that I have not Hermann I am a demon. He was not physical with Dr. Graf. He sent in for evaluation. When asking his sister what his medical problems are she states that she does not know. She does states she gives him medications every night but does not know what these are. She does not believe there is been a change in his medications. PFSH PFS Home Medications melatonin-pyridoxine (vit B6) [Melatonin 5 mg Tablet] 1 ea PO BID 08/11/17 [History Last Taken Unknown] cariprazine [Vraylar] 4.5 mg PO DAILY 12/03/20 [History Last Taken Unknown] doxepin 50 mg PO QHS 12/03/20 [History Last Taken Unknown] guanfacine mg 12/03/20 [History Last Taken Unknown] lithium carbonate 300 mg PO BID 12/03/20 [History Last Taken Unknown] Allergy/AdvReac Type Severity Reaction Status Date / Time No Known Allergies Allergy Verified 12/03/20 17:43 Social History Smoking Status: Former smoker substance use type: does not use ROS ROS ED Constitutional Constitutional ED: Denies fever(s), sweats or weight loss Eyes Eyes: Denies blurry vision or change in vision ENT ENT ED: Denies rhinorrhea or sore throat Cardiovascular Cardiovascular: Denies chest pain or palpitations Respiratory/Chest Respiratory/Chest: Denies cough, dyspnea or sputum Gastrointestinal Gastrointestinal: Denies abdominal pain, nausea or vomiting Genitourinary Genitourinary ED: Denies dysuria or hematuria Integumentary Denies Abrasions or rash Neurologic Neurologic: Denies headache(s) or paresthesias Psychiatric Psychiatric: Reports other Details: Lana, hallucinating, aggressive behavior EXAM Physical Exam Const Vital Signs: 12/03/20 17:43 12/03/20 20:00 12/03/20 21:56 Temperature 97.3 F L Temperature Source Temporal Pulse Rate 73 68 63 Respiratory Rate 14 16 16 Blood Pressure 183/107 H 183/94 H 181/100 H Blood Pressure Mean 132 123 127 Pulse Ox 97 Oxygen Delivery Method Room Air Positive well nourished General Appearance ED: NAD HEENT normocephalic and atraumatic Eyes PERRL Resp normal respiratory effort and clear to auscultation bilaterally Cardio Rate: regular rate Rhythm: regular rhythm Neuro CN's II-XII intact bilaterally Sensorium / Orientation: alert Psych Psych Narrative: Patient admits to feeling as if he is demon. Patient is calm. He does not admit to suicidal or homicidal ideation. Skin Rashes: no rashes MDM MDM MDM Narrative Medical decision making narrative: Patient was schizophrenia and has been manic over the last 24 hours he has not slept. He is hallucinating. He believes he is a demon. After speaking with his sister who is his POA and caregiver she has no idea what medical problems he has and does not know what it medicines he takes. I feel the patient will likely benefit from inpatient treatment for his schizophrenia and I also have concern that the patient is not being his well care for today he might need. Patient's blood work today shows that his CBC is unremarkable. BMP shows normal renal function and potassium slightly low at 3.3. This was repleted orally. Patient's medicine list says that he is supposed to take Depakote however his valproic acid is negative. His lithium level is therapeutic and he is reportedly on this. His EtOH is negative. Urine drug screen is negative. Patient was discussed with crisis and I have concerned enough to get Adult Protective Services involved and feel he would benefit from inpatient treatment as well. They are currently trying to get him placed in a geriatric psychiatric facility. Covid testing is negative. Patient's medicine list is updated in the computer and he will get his home medications as needed. Patient will be signed out to incoming ED physician for monitoring until placement. Impression: 1. History of schizophrenia 2. Hallucinations 3. Lana 4. Aggressive behavior Lab Data Labs: Laboratory Results - last 24 hr 12/03/20 12/03/20 12/03/20 18:16 18:16 18:16 WBC 9.9 RBC 4.17 L Hgb 12.8 L Hct 38.4 L MCV 92.1 MCH 30.7 MCHC 33.3 RDW Std Deviation 43.4 RDW Coeff of Govind 12.9 Plt Count 362 MPV 8.6 Immature Gran % (Auto) 0.400 Neut % (Auto) 73.2 H Lymph % (Auto) 15.4 L Brooke % (Auto) 5.5 Eos % (Auto) 5.2 H Baso % (Auto) 0.3 Absolute Neuts (auto) 7.2 Absolute Lymphs (auto) 1.52 Nucleated RBC % 0 Sodium 140 Potassium 3.3 L Chloride 106 Carbon Dioxide 29.0 Anion Gap 5 BUN 12 Creatinine 1.07 Estim Creat Clear Calc 47.38 Est GFR (MDRD) Af Amer 89 Est GFR (MDRD) Non-Af 73 BUN/Creatinine Ratio 11.2 Glucose 96 Calcium 8.9 Total Bilirubin 0.60 AST 14 L ALT 22 Alkaline Phosphatase 85 Total Protein 7.9 Albumin 3.5 Globulin 4.4 H Albumin/Globulin Ratio 0.8 L Urine Opiates Screen Urine Methadone Screen Ur Barbiturates Screen Valproic Acid < 3 L Ur Phencyclidine Scrn Ur Amphetamines Screen U Methamphetamin-MDMA U Benzodiazepines Scrn [facility] 0.70 Urine Cocaine Screen U Cannabinoids Screen Ur Drug Screen Comment Ethyl Alcohol < 3.0 12/03/20 18:16 WBC RBC Hgb Hct MCV MCH MCHC RDW Std Deviation RDW Coeff of Govind Plt Count MPV Immature Gran % (Auto) Neut % (Auto) Lymph % (Auto) Brooke % (Auto) Eos % (Auto) Baso % (Auto) Absolute Neuts (auto) Absolute Lymphs (auto) Nucleated RBC % Sodium Potassium Chloride Carbon Dioxide Anion Gap BUN Creatinine Estim Creat Clear Calc Est GFR (MDRD) Af Amer Est GFR (MDRD) Non-Af BUN/Creatinine Ratio Glucose Calcium Total Bilirubin AST ALT Alkaline Phosphatase Total Protein Albumin Globulin Albumin/Globulin Ratio Urine Opiates Screen NEGATIVE Urine Methadone Screen NEGATIVE Ur Barbiturates Screen NEGATIVE Valproic Acid Ur Phencyclidine Scrn NEGATIVE Ur Amphetamines Screen NEGATIVE U Methamphetamin-MDMA NEGATIVE U Benzodiazepines Scrn NEGATIVE [facility] Urine Cocaine Screen NEGATIVE U Cannabinoids Screen NEGATIVE Ur Drug Screen Comment Ethyl Alcohol Discharge Plan Triage Chief Complaint: Mental Health ED Provider: Duc Perdue Dx/Rx/DC Orders Prescriptions: No Action melatonin-pyridoxine (vit B6) [Melatonin (with B6)] 1 EACH tablet 1 ea PO BID RF: 0 doxepin 50 mg capsule 50 mg PO QHS RF: 0 lithium carbonate 300 mg tablet extended release 300 mg PO BID RF: 0 guanfacine 1 mg tablet RF: 0 Vraylar 4.5 mg capsule 4.5 mg PO DAILY RF: 0 Primary Care Provider: Javid Graf
--- NOTE | 2020-12-03 19:37 | NURSING ---
CALLED [facility] AT 1936
[2020-12-03 20:00] VITALS: BP 183/94; PULSE 68; RESP 16
--- NOTE | 2020-12-03 21:14 | ED.RN ---
Patient arrives with sister, has grandiose thoughts with living in heaven with God and has history of having maniac episodes at home. Patient denies having suicidal or homicidal ideations. Patient answers most questions appropriately; however, does have transient grandiose thoughts. Sister who is at bedside does interrupt report to give details of report and correct patient statements. Difficulty receiving actual events of the day prior due to patient and sister arguing about events. Patient and sister easily deescalated though. Crisis arrived and patient requests to talk to burlap worker privately. Patient sister, who now claims guardianship however no documentation provided or on file demands to stay in the room. Requests by staff to interview patient in private were challenged by family (patient's sisters daughter) who was on cell phone- telling her mom (patient sister) that we cannot interview patient without her present and also was heard on the phone saying do not leave, stay with him, don't leave. This was heard by crisis and myself. PD assistance was requested to assist in patient request to be interviewed in private. Patient sister complied with PD request for patient having the right to be interviewed in private to acknowledge what patient was describing and she accepted and stepped outside room.
[2020-12-03 21:56] VITALS: BP 181/100; PULSE 63; RESP 16
[2020-12-03 22:38] VITALS: RESP 15
[2020-12-03] MEDS: Potassium Chloride Oral Tablet 20 MEQ PO (22:38)
--- NOTE | 2020-12-03 22:47 | NURSING ---
[facility] CALLED STATING PT IS PENDING [facility]
[2020-12-03] MEDS: Lithium Carbonate 300mg Capsule 300 MG PO (23:24)
[2020-12-03] MEDS: MELATONIN 10 MG TABLET PO (23:24)
[2020-12-03] MEDS: DOXEPIN HCL 50 MG CAPSULE PO (23:24)
[2020-12-03 23:34] VITALS: PULSE 76; RESP 16; O2SAT 98
[2020-12-04] VITALS (14 sets, daily range): BP systolic 156–190; BP diastolic 86–100; PULSE 64–79; RESP 14–20; TEMP 36.6; O2SAT 94–98
--- NOTE | 2020-12-04 10:38 | EKG12_ITS ---
Test Reason : MENTAL HEALTH Blood Pressure : / mmHG Vent. Rate : 080 BPM Atrial Rate : 080 BPM P-R Int : 142 ms QRS Dur : 076 ms QT Int : 364 ms P-R-T Axes : 055 055 061 degrees QTc Int : 419 ms Normal sinus rhythm Septal infarct , age undetermined Abnormal ECG Confirmed by ZACHERY MONSON, SILVESTRE ([id number]), editor dictionary KAVITA SELLERS ([id number]) on 12/08/2020 7:53:56 AM Referred By: BB/ Confirmed By:SILVESTRE BINGHAM MD
--- NOTE | 2020-12-04 11:19 | ED.RN ---
called pharmacy about daily meds.
[2020-12-04] MEDS: Lithium Carbonate 300mg Capsule 300 MG PO (12:02)
--- NOTE | 2020-12-04 12:53 | CM.ED ---
SOCIAL WORK powder worker tnt here. Worker states will be talking with APS and attempting to obtain guardianship paperwork. Referral has been made to [facility]. Lissy Chaudhry, CALIBRATION TESTER, BUSINESS PLANNER
--- NOTE | 2020-12-04 14:23 | CM.ED ---
SOCIAL WORK Call to Genny with Crisis, per Genny now working on placement at [place]. Guardian and will be coming in with paperwork. Crisis also obtaining guardianship paperwork from patient's PCP. Staff aly. Lissy Chaudhry MSW, GUITAR MAKER HAND
--- NOTE | 2020-12-04 15:28 | CM.ED ---
SOCIAL WORK Patient's guardian, Loraine Albarran here. Provided this worker with guardianship form. Copy added to chart to be scanned into medical records. Call to Crisis to update. Patient pending at [facility]. TIKI Ruiz, MACHINE REPAIR PERSON
--- NOTE | 2020-12-04 17:26 | CM.ED ---
SOCIAL WORK Patient accepted to [facility] by Dr. Valenzuela to [facility]. Nurse to call report to [phone]. Call to [facility], ETA 19:30. Staff, patient, and guardian-Loraine Chaudhry, SOCIAL WELFARE RESEARCH WORKER, SCREWHEAD POLISHER
--- NOTE | 2020-12-04 19:00 | ED.RN ---
PHYSICIANS CALLED AND SAID THE ETA WAS SUPPOSE TO BE AT 7:30PM BUT THEY ARE NOW PUSHING THE ETA BACK TO AROUND 10PM.
== END 2020-12-04 20:52 ==
LOC: ED 18:03
PROVIDERS: Emergency Provider Student in an Organized Health Care Education/Training Program; PCP Family Medicine
DX: F20.9 Schizophrenia, unspecified (principal); Z20.822 Contact with and (suspected) exposure to COVID-19; E87.6 Hypokalemia; Z79.899 Other long term (current) drug therapy; Z87.891 Personal history of nicotine dependence
CPT/HCPCS: 80053; 80164; 80178; 80307; 82077; 85025; 87426; 93005; 99285

== ENCOUNTER → 2022-06-27 | Outpatient (CLI) | payer MEDICAID, SELFPAY ==
[2022-06-27 16:20] LABS: Mucous, Urine 0 SEEN /hpf (<or=2+)
[2022-06-27 18:06] LABS: Absolute Lymphocyte Count 0.98 X10^3/uL (0.83-4.51); Absolute Neutrophil Count 2.2 X10^3/uL (2.0-7.7); Basophil# 0.02 X10^3/uL; Basophil% 0.5 % (0-1); Color, Urine Yellow (Yellow); Eosinophil# 0.17 X10^3/uL; Eosinophils% 4.5 % (0-5); Glucose, Dipstick Normal (Normal); Hematocrit 30.6 % (40-54); Ketone-Dipstick Negative (Negative); Leukocyte Esterase-Dipstick 500 /ul (Negative); Lymphocyte # 0.98 X10^3/ul (0.83-4.51); Lymphocyte % 26.1 % (19-41); Mean Corp Hgb Conc 29.4 g/dL (32-36); Mean Corpuscular Hgb 23.7 pg (27.0-32.0); Mean Corpuscular Volume 80.7 fL (80-94); Mean Platelet Vol. 10.4 fl (6.2-12.0); Monocyte# 0.36 X10^3/uL; Monocyte% 9.6 % (0-10); NRBC Flagged by Analyzer 0 % (0-5); Neutrophil # 2.22 X10^3/uL (2.7-7.7); Nitrite-Dipstick Negative (Negative); Occult Blood-Urine Negative /ul (Negative); Platelet Count 272 K/mm3 (150-450); Protein-Dipstick Negative (Negative); RBC Distribution Width CV 16.2 % (11.6-14.6); RBC Distribution Width SD 47.8 fl (35.1-43.9); Red Blood Count 3.79 M/mm3 (4.6-6.2); Specific Gravity, Urine 1.005 (1.002-1.030); Urine Bilirubin Dipstick Negative (Negative); Urine Clarity Sl. Cloudy (Clear); Urine Urobilinogen Normal (Normal); White Blood Count 3.8 K/mm3 (4.4-11.0)
[2022-06-27 18:12] LABS: Red Blood Cells-Urine 0-5 SEEN /hpf (0-5); Squamous Epithelial Cells - UA 0-5 SEEN /hpf (0-5); White Blood Cells 25-50 SEEN /hpf (0-5)
[2022-06-27 18:13] LABS: Bacteria RARE /hpf (None Seen)
[2022-06-27 18:29] LABS: Valproic Acid (Depakene) Level 74 ug/mL (50-100)
[2022-06-27 18:32] LABS: Urine Sodium 33 mmol/L (Not Establ.)
[2022-06-27 18:39] LABS: Amphetamine Urine VISTA NEGATIVE (<1000 ng/mL); Barbiturate Urine VISTA NEGATIVE (< 200 ng/mL); Benzodiazepine Urine VISTA NEGATIVE (< 200 ng/mL); Cocaine Urine VISTA NEGATIVE (< 300 ng/mL); Ecstacy Urine VISTA NEGATIVE (< 500 ng/mL); Methadone Urine VISTA NEGATIVE (< 300 ng/mL); PCP Urine VISTA NEGATIVE (< 25 ng/mL); THC Urine VISTA NEGATIVE (< 50 ng/mL); Vista UDS pH Range 6
[2022-06-27 18:42] LABS: ALB/GLOB Ratio 0.9 RATIO (0.9-2.4); AST(SGOT) 17 U/L (15-37); Alanine Aminotransfer ALT/SGPT 17 U/L (16-61); Albumin, Serum 3.5 g/dL (3.2-5.0); Alkaline Phosphatase 58 U/L (45-117); Anion Gap 7 (5-15); BUN 11 mg/dL (7-18); BUN/Creat Ratio 11.5 RATIO (10-20); Calcium,Total 8.8 mg/dL (8.5-10.1); Chloride 108 mmol/L (98-107); Creatinine, Serum 0.96 mg/dL (0.70-1.30); EST Glomerular Filtration Rate 83 mL/min (>60); Est Glom Filt Rate - Afr Amer 100 mL/min (>60); Globulin 4.1 g/dL (2.2-4.2); Glucose 102 mg/dL (74-106); Potassium 3.6 mmol/L (3.5-5.1); Protein, Total 7.6 g/dL (6.4-8.2); Sodium Level 142 mmol/L (136-145); Thyroid Stim Hormone (TSH) 0.74 uIU/mL (0.358-3.74)
[2022-06-27 20:38] LABS: Osmolality, Urine 129 mOsm/KG
[2022-06-29 11:14] LABS: Ferritin 6 ng/mL (26-388)
== END | disposition home or self-care (01) ==
PROVIDERS: PCP Family Medicine; Visit Provider Family Medicine
DX: D64.9 Anemia, unspecified (principal); F20.9 Schizophrenia, unspecified; F63.9 Impulse disorder, unspecified
CPT/HCPCS: 80053; 80164; 80307; 81001; 82140; 82728; 83935; 84300; 84443; 85025

== ENCOUNTER → 2022-07-25 | Outpatient (CLI) | payer MEDICAID, SELFPAY ==
[2022-07-25 17:49] LABS: Absolute Lymphocyte Count 0.92 X10^3/uL (0.83-4.51); Absolute Neutrophil Count 2.1 X10^3/uL (2.0-7.7); Basophil# 0.02 X10^3/uL; Basophil% 0.6 % (0-1); Eosinophil# 0.14 X10^3/uL; Hematocrit 33.9 % (40-54); Hemoglobin 10.4 g/dL (13.0-16.5); Lymphocyte # 0.92 X10^3/ul (0.83-4.51); Lymphocyte % 26.6 % (19-41); Mean Corp Hgb Conc 30.7 g/dL (32-36); Mean Corpuscular Hgb 26.2 pg (27.0-32.0); Mean Corpuscular Volume 85.4 fL (80-94); Mean Platelet Vol. 9.7 fl (6.2-12.0); Monocyte# 0.29 X10^3/uL; Monocyte% 8.4 % (0-10); NRBC Flagged by Analyzer 0 % (0-5); Neutrophil # 2.08 X10^3/uL (2.7-7.7); Neutrophil % 60.1 % (47-70); POSITIVE MORPHOLOGY YES; Platelet Count 248 K/mm3 (150-450); RBC Distribution Width CV 22.5 % (11.6-14.6); RBC Distribution Width SD 67.5 fl (35.1-43.9); Red Blood Count 3.97 M/mm3 (4.6-6.2); White Blood Count 3.5 K/mm3 (4.4-11.0)
[2022-07-25 17:55] LABS: Differential Indicated SCAN CRITERIA MET
[2022-07-25 18:10] LABS: ALB/GLOB Ratio 0.8 RATIO (0.9-2.4); AST(SGOT) 11 U/L (15-37); Alanine Aminotransfer ALT/SGPT 15 U/L (16-61); Albumin, Serum 3.3 g/dL (3.2-5.0); Alkaline Phosphatase 60 U/L (45-117); Anion Gap 7 (5-15); BUN 12 mg/dL (7-18); BUN/Creat Ratio 11.8 RATIO (10-20); Calcium,Total 8.7 mg/dL (8.5-10.1); Chloride 107 mmol/L (98-107); Creatinine, Serum 1.02 mg/dL (0.70-1.30); EST Glomerular Filtration Rate 77 mL/min (>60); Est Glom Filt Rate - Afr Amer 93 mL/min (>60); Globulin 4.2 g/dL (2.2-4.2); Glucose 84 mg/dL (74-106); Potassium 3.6 mmol/L (3.5-5.1); Protein, Total 7.5 g/dL (6.4-8.2); Sodium Level 140 mmol/L (136-145)
[2022-07-25 18:16] LABS: Lithium < 0.20 mmol/L (0.60-1.20); Valproic Acid (Depakene) Level 118 ug/mL (50-100)
[2022-07-25 18:37] LABS: Anisocytosis 1+; Macrocytosis RARE; Platelet Estimate ADEQUATE (ADEQ); Red Cell Morphology NORM C+C NORMAL (NORM C&C)
[2022-07-28 16:09] LABS: Lamotrigine (Lamictal) Level 4.6 ug/mL (2.0-20.0)
== END | disposition home or self-care (01) ==
LOC: MFPLAB 16:54
PROVIDERS: PCP Family Medicine; Visit Provider Family Medicine
DX: F20.9 Schizophrenia, unspecified (principal)
CPT/HCPCS: 36415; 80053; 80164; 80178; 82140; 82542; 85025

== ENCOUNTER 2022-09-07 14:09 | Inpatient (IN) | payer MEDICAID, SELFPAY ==
[2022-09-07 14:10] VITALS: BP 113/73; PULSE 73; RESP 18; TEMP 36.6; O2SAT 98; BMI 18.0
--- NOTE | 2022-09-07 14:22 | CT_ITS ---
STUDY: CT BRAIN WITHOUT CONTRAST REASON FOR EXAM: Male, 67 years old. confusion Individualized dose optimization techniques were used for this CT. TECHNIQUE: Transaxial CT imaging of the brain was performed without administration of intravenous contrast material. COMPARISON: 08.11.17 FINDINGS: There are calcifications around the carotid artery. These are noted in the cavernous carotid arteries. Normal calvarium. There is diffuse subcutaneous emphysema along the prevertebral space, neck, news technical director space and mandible. There is mild cerebral atrophy with widening of the extra-axial spaces and ventricular dilatation. Normal white matter tracts of the cerebral hemispheres. Normal basal ganglia and thalami. Normal brainstem. There is mild cerebellar atrophy. There is no intracranial hemorrhage. There are no findings of an acute ischemic infarction. Normal visualized paranasal sinuses. ASPECTS Score for Acute Strokes: 10 CT/Brain/Head without Contrast IMPRESSION: There is diffuse subcutaneous emphysema along the prevertebral space, neck, news technical director space and mandible. Electronically Signed: Pola Quintana MD at 16:16 EDT ,
--- NOTE | 2022-09-07 14:24 | EX.ED.DYSGE1 ---
HPI History of Present Illness Chief Complaint: Confusion Informant: patient and family Onset/Context/Timing Onset: Days Narrative Narrative: Patient presents with his family secondary to cough and shortness of breath. The also states he has been more weak than normal and somewhat confused. They believe symptoms have been ongoing for the past 3 days. They do not think he has had a fever. He has a cough that is nonproductive and he does complain of some left-sided chest wall pain. Patient's medication list from prior visit lists lithium. Family does not know if he still takes this medication. They do not believe he has had a level checked if he is still on it. [facility] Medical History Gastroesophageal reflux disease Schizophrenia Home Medications melatonin 5 mg-pyridoxine (vitamin B6) 1 mg tablet (Melatonin (with B6)) 1 ea PO BID 08/11/17 [History Last Taken Unknown] cariprazine 4.5 mg capsule (Vraylar) 4.5 mg PO DAILY 12/03/20 [History Last Taken Unknown] doxepin 50 mg capsule 50 mg PO QHS 12/03/20 [History Last Taken Unknown] guanfacine 1 mg tablet mg 12/03/20 [History Last Taken Unknown] lithium carbonate 300 mg tablet,extended release 300 mg PO BID 12/03/20 [History Last Taken Unknown] Allergy/AdvReac Type Severity Reaction Status Date / Time No Known Allergies Allergy Verified 09/07/22 14:12 Social History Smoking Status: Former smoker substance use type: does not use ROS ROS ED ROS Narrative Family reports patient's baseline mental status not sufficient to appropriately answer questions. They state he would likely answer yes to any question I ask him. Review of Systems ROS Unobtainable: due to mental condition EXAM Physical Exam Const Vital Signs: 09/07/22 14:10 Temperature 98 F Temperature Source Temporal Pulse Rate 73 Respiratory Rate 18 Blood Pressure 113/73 Blood Pressure Mean 86 Pulse Ox 98 Oxygen Delivery Method Room Air Positive well nourished and well developed General Appearance ED: well developed HEENT Reports moist mucous membranes Eyes PERRL and EOMs intact bilaterally Chest Wall inspection of chest normal Chest Narrative: Reproducible left chest wall tenderness. No crepitus. Resp normal respiratory effort and clear to auscultation bilaterally Cardio regular rate and regular rhythm GI non-tender Palpation: soft Extremity normal to inspection Neuro Neuro Narrative: Moves all 4 extremities. Sensorium / Orientation: alert Skin no rashes or lesions noted MDM MDM MDM Narrative Medical decision making narrative: CT scan of the head obtained given increased confusion. Chest x-ray obtained given the patient's cough and shortness of breath. Labwork obtained to evaluate for leukocytosis, anemia, and electrolyte derangement. Lab Data Attestation: I reviewed the patient's lab results. Labs: Laboratory Results - last 24 hr 09/07/22 15:10 WBC 5.6 RBC 3.16 L Hgb 9.5 L Hct 29.6 L MCV 93.7 MCH 30.1 MCHC 32.1 RDW Std Deviation 66.6 H RDW Coeff of Govind 19.2 H Plt Count 224 MPV 9.1 Immature Gran % (Auto) 0.200 Neut % (Auto) 65.1 Lymph % (Auto) 13.5 L [place] % (Auto) 13.1 H Eos % (Auto) 7.9 H Baso % (Auto) 0.2 Absolute Neuts (auto) 3.6 Absolute Lymphs (auto) 0.75 L Nucleated RBC % 0 Differential Comment SCANNED Anisocytosis 1+ Sodium 139 Potassium 3.5 Chloride 104 Carbon Dioxide 29.0 Anion Gap 6 BUN 12 Creatinine 0.96 Estim Creat Clear Calc 47.52 Est GFR (MDRD) Af Amer 100 Est GFR (MDRD) Non-Af 83 BUN/Creatinine Ratio 12.6 Glucose 92 Calcium 8.2 L Total Bilirubin 0.40 Direct Bilirubin 0.18 AST 12 L ALT 16 Alkaline Phosphatase 58 Troponin I High Sens < 3 L Total Protein 6.5 Albumin 2.2 L Globulin 4.3 H Urine Color Yellow Urine Clarity Clear Urine pH 7.0 Ur Specific [place] 1.010 Urine Protein Negative Urine Glucose (UA) Normal Urine Ketones 5 H Urine Occult Blood Negative Urine Nitrite Negative Urine Bilirubin Negative Urine Urobilinogen 1 H Ur Leukocyte Esterase 100 H Urine RBC 0 SEEN Urine WBC 5-10 SEEN Ur Squamous Epith Cells 0 SEEN Urine Bacteria 1+ Urine Mucus 0 SEEN [place] < 0.20 L Radiography Chest X-Ray - ED: 1 View, Read by ED Physician, Left Infiltrate and - (Subcutaneous air noted superior to the apices. No obvious pneumothorax noted.) Diagnostic Testing: Clinical Impression(s) from Imaging Studies Brain CT 09/07/22 14:22 IMPRESSION: There is diffuse subcutaneous emphysema along the prevertebral space, neck, manager training and development space and mandible. Electronically Signed: Pola Quintana MD at 16:16 EDT , Chest X-Ray 09/07/22 15:38 IMPRESSION: Left lower lobe infiltrate. The right and left supraclavicular region, there is subcutaneous emphysema. Electronically Signed: Pola Quintana MD at 16:13 EDT , EKG Initial EKG: Attestation: I personally reviewed and interpreted this EKG as follows: Interpretation: Sinus Rhythm (Sinus at 68 with no acute ischemia.) Treatment and Re-Evaluation :: CBC was normal white count 5.6 with normal differential. Chemistry studies unremarkable. LFTs normal and troponin is normal at less than 3. Urinalysis reveals 5-10 white cells with 1+ bacteria. Nitrites are negative. [place] level is less than 0.2 and patient/family are unsure if he is still taking this medication. CT scan of the head reveals subcutaneous emphysema along the prevertebral space, neck, manager training and development space, and mandible. Chest x-ray reveals left lower lobe infiltrate along with subcutaneous emphysema. I believe the patient likely ruptured a small bleb from his harsh coughing. At this time I see no evidence of pneumothorax. Given his infiltrate he is given a dose of Levaquin and I have recommended observation overnight to ensure respiratory stability. I will speak with the hospitalist. It is noted that when nursing staff first evaluate the patient bedbugs were noted. Patient was changed and his belongings were bag. Discharge Plan Triage Chief Complaint: Confusion ED Provider: Rosalia Moreno Dx/Rx/DC Orders Clinical Impression: Subcutaneous emphysema, Pneumonia Prescriptions: No Action melatonin-pyridoxine (vit B6) [Melatonin (with B6)] 1 EACH tablet 1 ea PO BID doxepin 50 mg capsule 50 mg PO QHS Patient Comments: TAKE 1 CAPSULE BY MOUTH EVERY NIGHT AT BEDTIME lithium carbonate 300 mg tablet extended release 300 mg PO BID Patient Comments: Take 1 Tablet by mouth twice daily guanfacine 1 mg tablet Patient Comments: TAKE 1 TABLET BY MOUTH before bed Vraylar 4.5 mg capsule 4.5 mg PO DAILY Patient Comments: Take 1 (one) Capsule by mouth daily Primary Care Provider: Javid Graf Referrals: Javid Graf MD [Primary Care Provider] - Disposition Disposition: Acute Care Hospital [facility]
--- NOTE | 2022-09-07 14:44 | ED.RN ---
found bedbugs on pt. while respiratory was getting ekg. admission discharge rn aware
[2022-09-07 15:27] LABS: Mucous, Urine 0 SEEN /hpf (<or=2+); Red Blood Cells-Urine 0 SEEN /hpf (0-5); Squamous Epithelial Cells - UA 0 SEEN /hpf (0-5)
[2022-09-07 15:31] LABS: Absolute Lymphocyte Count 0.75 X10^3/uL (0.83-4.51); Absolute Neutrophil Count 3.6 X10^3/uL (2.0-7.7); Basophil# 0.01 X10^3/uL; Basophil% 0.2 % (0-1); Eosinophil# 0.44 X10^3/uL; Eosinophils% 7.9 % (0-5); Hematocrit 29.6 % (40-54); Hemoglobin 9.5 g/dL (13.0-16.5); Lymphocyte # 0.75 X10^3/ul (0.83-4.51); Lymphocyte % 13.5 % (19-41); Mean Corp Hgb Conc 32.1 g/dL (32-36); Mean Corpuscular Hgb 30.1 pg (27.0-32.0); Mean Corpuscular Volume 93.7 fL (80-94); Mean Platelet Vol. 9.1 fl (6.2-12.0); Monocyte# 0.73 X10^3/uL; Monocyte% 13.1 % (0-10); NRBC Flagged by Analyzer 0 % (0-5); Neutrophil # 3.62 X10^3/uL (2.7-7.7); Neutrophil % 65.1 % (47-70); POSITIVE MORPHOLOGY YES; Platelet Count 224 K/mm3 (150-450); RBC Distribution Width CV 19.2 % (11.6-14.6); RBC Distribution Width SD 66.6 fl (35.1-43.9); Red Blood Count 3.16 M/mm3 (4.6-6.2); White Blood Count 5.6 K/mm3 (4.4-11.0)
[2022-09-07 15:34] LABS: Differential Indicated SCAN CRITERIA MET
--- NOTE | 2022-09-07 15:38 | RAD_ITS ---
STUDY: XR Chest 1 View 09/07/2022 3:36 PM REASON FOR EXAM: Male, 67 years old. CHEST PAIN cough, cp COMPARISON: 6.16.21 TECHNIQUE: XR Chest 1 View FINDINGS: Left lower lobe infiltrate. The right and left supraclavicular region, there is subcutaneous emphysema. There is no pneumothorax. Normal heart size. Normal mediastinum. Normal mark. Prominent appearing increased interstitial lung markings. Normal visualized pulmonary arteries. There is atherosclerotic calcification of the aortic arch with tortuosity. There are diffuse degenerative changes of the visualized thoracic spine. There is degenerative osteoarthritis of the bilateral shoulders. There is no demonstrated abnormality of the visualized soft tissue structures of the upper abdomen. RAD/Chest 1 View (Portable) IMPRESSION: Left lower lobe infiltrate. The right and left supraclavicular region, there is subcutaneous emphysema. Electronically Signed: Pola Quintana MD at 16:13 EDT ,
[2022-09-07 15:42] LABS: Color, Urine Yellow (Yellow); Glucose, Dipstick Normal (Normal); Ketone-Dipstick 5 mg/dl (Negative); Leukocyte Esterase-Dipstick 100 /ul (Negative); Nitrite-Dipstick Negative (Negative); Occult Blood-Urine Negative /ul (Negative); Protein-Dipstick Negative (Negative); Urine Bilirubin Dipstick Negative (Negative); Urine Clarity Clear (Clear); Urine Urobilinogen 1 mg/dl (Normal)
[2022-09-07 15:43] LABS: AST(SGOT) 12 U/L (15-37); Alanine Aminotransfer ALT/SGPT 16 U/L (16-61); Albumin, Serum 2.2 g/dL (3.2-5.0); Alkaline Phosphatase 58 U/L (45-117); Anion Gap 6 (5-15); BUN 12 mg/dL (7-18); BUN/Creat Ratio 12.6 RATIO (10-20); Bilirubin, Direct 0.18 mg/dL (0.00-0.30); Calcium,Total 8.2 mg/dL (8.5-10.1); Chloride 104 mmol/L (98-107); Creatinine, Serum 0.96 mg/dL (0.70-1.30); EST Glomerular Filtration Rate 83 mL/min (>60); Est Glom Filt Rate - Afr Amer 100 mL/min (>60); Estimated Creatinine Clearance 47.52 ml/min; Globulin 4.3 g/dL (2.2-4.2); Glucose 92 mg/dL (74-106); Potassium 3.5 mmol/L (3.5-5.1); Protein, Total 6.5 g/dL (6.4-8.2); Sodium Level 139 mmol/L (136-145); Troponin-I HS < 3 pg/mL (3.0-78.0)
[2022-09-07 15:52] LABS: Lithium < 0.20 mmol/L (0.60-1.20)
[2022-09-07 16:23] LABS: Bacteria 1+ /hpf (None Seen); White Blood Cells 5-10 SEEN /hpf (0-5)
[2022-09-07 16:27] LABS: Anisocytosis 1+; Differential Comment SCANNED
--- NOTE | 2022-09-07 16:58 | NURSING ---
DR SIMMONS FOR DR UNGER
[2022-09-07 17:09] VITALS: BP 138/76; PULSE 78; RESP 16; TEMP 36.6; O2SAT 99
[2022-09-07] MEDS: levoFLOXacin IV 750 MG/150 ML BAG 100 MG IV (17:10)
--- NOTE | 2022-09-07 17:11 | NURSING ---
PCU OBS OLEGHE PNEUMONIA, SUBCUTANEOUS EMPHYSEMA
--- NOTE | 2022-09-07 17:51 | CT_ITS ---
STUDY: CT Chest W/O Contrast Injection 09/07/2022 7:08 PM REASON FOR EXAM: Male, 67 years old. subcutaneous emphysema Individualized dose optimization techniques were used for this CT. TECHNIQUE: Transaxial imaging was performed withoutIV contrast material. COMPARISON: None. FINDINGS: There are degenerative changes of the shoulders. There is no pneumothorax. There is left lower lobe and lingular infiltrate. There is diffuse Subcutaneous emphysema of the chest extending to the neck. There is pneumomediastinum. Normal heart and pericardium with no evidence for calcifications of the coronary arteries. Normal mediastinum. Normal hilar regions. Normal pulmonary arteries. Normal aorta arch and descending thoracic aorta. There are multi-level degenerative changes of the thoracic spine. There are no acute findings of the upper abdomen. CT/Chest without Contrast IMPRESSION: There is no pneumothorax. There is left lower lobe and lingular infiltrate. There is diffuse Subcutaneous emphysema of the chest extending to the neck. There is pneumomediastinum. Electronically Signed: Pola Quintana MD at 19:30 EDT ,
--- NOTE | 2022-09-07 17:56 | HP.PCM_ITS ---
HPI - General General Date of Admission: 09/07/22 Date of Service: 09/07/22 Chief Complaint: Confusion and behavioral/personality changes and cough HPI Narrative JASMINE SILVA, is a 67 M with a history of schizophrenia and intellectual disabi lity and who resides with family in the community. Presents with few days history of cough, shortness of breath, confusion, disorientation and personality and behavioral changes that is significantly different from his baseline. Patient also complains of left-sided chest pain that appears to be pleuritic. Chest x-ray emergency department showing infiltrates in the left lung base as well as subcutaneous emphysema in the upper chest lung apices and lower neck. Family does not report any recent trauma and patient does not appear to be in pain. Family does report unsteadiness of gait as well and overall generalized weakness. [facility] Medical History Gastroesophageal reflux disease Schizophrenia Home Medications melatonin 5 mg-pyridoxine (vitamin B6) 1 mg tablet (Melatonin (with B6)) 1 ea PO BID 08/11/17 [History Last Taken Unknown] cariprazine 4.5 mg capsule (Vraylar) 4.5 mg PO DAILY 12/03/20 [History Last Taken Unknown] doxepin 50 mg capsule 50 mg PO QHS 12/03/20 [History Last Taken Unknown] guanfacine 1 mg tablet mg 12/03/20 [History Last Taken Unknown] lithium carbonate 300 mg tablet,extended release 300 mg PO BID 12/03/20 [History Last Taken Unknown] Allergy/AdvReac Type Severity Reaction Status Date / Time No Known Allergies Allergy Verified 09/07/22 14:12 Social History Smoking Status: Former smoker substance use type: does not use ROS ROS Narrative Due to intellectual disability chronic confusion unable to provide review of systems. Vital Signs Vital Signs Vital Signs: 09/07/22 14:10 09/07/22 17:09 Temperature 36.6 C 36.6 C Temperature Source Temporal Temporal Pulse Rate 73 78 Respiratory Rate 18 16 Blood Pressure 113/73 138/76 H Blood Pressure Mean 86 96 Pulse Ox 98 99 Oxygen Delivery Method Room Air Room Air Weight Weight: 46.266 kg Body Mass Index (BMI) 18.0 Physical Exam Narrative General exam. Elderly man that appears older than stated age, poorly groomed. Mildly ill-appearing HEENT. Oral mucosa is moist no pallor jaundice and no cyanosis Neck. Neck is supple, crepitus felt subcutaneously in the supraclavicular area Lungs. Diminished breath sounds bilaterally, fine expiratory wheezing in the upper zones Heart. First and second heart sounds heard no murmurs Abdomen. Moves with respiration Extremities. 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 Results Medical Records Data Attestation: I reviewed the patient's medical records Lab / Micro Data Attestation: I reviewed the patient's lab results. 09/07/22 15:10 09/07/22 15:10 Labs: Laboratory Results - last 24 hr 09/07/22 15:10: WBC 5.6, RBC 3.16 L, Hgb 9.5 L, Hct 29.6 L, MCV 93.7, MCH 30.1, MCHC 32.1, RDW Std Deviation 66.6 H, RDW Coeff of Govind 19.2 H, Plt Count 224, MPV 9.1, Immature Gran % (Auto) 0.200, Neut % (Auto) 65.1, Lymph % (Auto) 13.5 L, [place] % (Auto) 13.1 H, Eos % (Auto) 7.9 H, Baso % (Auto) 0.2, Absolute Neuts (auto) 3.6, Absolute Lymphs (auto) 0.75 L, Nucleated RBC % 0, Differential Comment SCANNED, Anisocytosis 1+, Sodium 139, Potassium 3.5, Chloride 104, Carbon Dioxide 29.0, Anion Gap 6, BUN 12, Creatinine 0.96, Estim Creat Clear Calc 47.52, Est GFR (MDRD) Af Amer 100, Est GFR (MDRD) Non-Af 83, BUN/Creatinine Ratio 12.6, Glucose 92, Calcium 8.2 L, Total Bilirubin 0.40, Direct Bilirubin 0.18, AST 12 L, ALT 16, Alkaline Phosphatase 58, Troponin I High Sens < 3 L, Total Protein 6.5, Albumin 2.2 L, Globulin 4.3 H, Urine Color Yellow, Urine Clarity Clear, Urine pH 7.0, Ur Specific [place] 1.010, Urine Protein Negative, Urine Glucose (UA) Normal, Urine Ketones 5 H, Urine Occult Blood Negative, Urine Nitrite Negative, Urine Bilirubin Negative, Urine Urobilinogen 1 H, Ur Leukocyte Esterase 100 H, Urine RBC 0 SEEN, Urine WBC 5-10 SEEN, Ur Squamous Epith Cells 0 SEEN, Urine Bacteria 1+, Urine Mucus 0 SEEN, [place] < 0.20 L Micro: Microbiology 09/07/22 15:10 Nasal Secretion SARS-CoV-2 & FLU Antigen (Rapid) - Final Radiology Impression Brain CT 09/07/22 14:22 IMPRESSION: There is diffuse subcutaneous emphysema along the prevertebral space, neck, claims supervisor space and mandible. Electronically Signed: Pola Quintana MD at 16:16 EDT , Chest X-Ray 09/07/22 15:38 IMPRESSION: Left lower lobe infiltrate. The right and left supraclavicular region, there is subcutaneous emphysema. Electronically Signed: Pola Quintana MD at 16:13 EDT , Assessment & Plan Assessment/Plan (1) Community acquired pneumonia: PLAN: Plan Assessment and plan 1. Community-acquired pneumonia bacterial pneumonia involving the left lower lobe. Start patient on IV antibiotics with Rocephin 2 g daily and azithromycin 500 mg daily. 2. Subcutaneous emphysema. Unclear etiology and no recent history of chest trauma. Patient has a significant tobacco/smoking history and potentially has undiagnosed COPD/emphysema and perhaps had spontaneous rupture of a bleb. Subcutaneous emphysema known to be a potential complication of COVID-19 infection as well. We will check COVID-[address] to rule out any other underlying lung pathology and rule out pneumomediastinum as well. 3. Acute delirium on top of known schizoaffective disorder and intellectual disability. Secondary to pneumonia most likely. Expect improvement with resolution of infection. Provide supportive care. Continue antipsychotics and mood stabilizing medications. Charges/Coding Visit Charges Inpatient E&M: 33177 Init Hosp L3
[2022-09-07 18:00] VITALS: BP 141/78; PULSE 72; RESP 15; TEMP 34.6; O2SAT 98
[2022-09-07 18:15] VITALS: BMI 19.3
[2022-09-07 19:45] VITALS: BP 133/73; PULSE 92; RESP 16; TEMP 35.5; O2SAT 99
[2022-09-07 22:00] VITALS: RESP 18
[2022-09-07] MEDS: MELATONIN 10 MG TABLET PO (22:46)
[2022-09-08 02:00] VITALS: BP 143/81; PULSE 86; RESP 18; TEMP 35.8; O2SAT 95
[2022-09-08 05:40] LABS: Absolute Lymphocyte Count 0.85 X10^3/uL (0.83-4.51); Absolute Neutrophil Count 3.4 X10^3/uL (2.0-7.7); Eosinophil# 0.41 X10^3/uL; Eosinophils% 7.6 % (0-5); Hemoglobin 8.4 g/dL (13.0-16.5); Lymphocyte # 0.85 X10^3/ul (0.83-4.51); Lymphocyte % 15.8 % (19-41); Mean Corp Hgb Conc 32.3 g/dL (32-36); Mean Corpuscular Volume 92.9 fL (80-94); Mean Platelet Vol. 9.5 fl (6.2-12.0); Monocyte# 0.72 X10^3/uL; Monocyte% 13.4 % (0-10); NRBC Flagged by Analyzer 0 % (0-5); Neutrophil # 3.38 X10^3/uL (2.7-7.7); POSITIVE MORPHOLOGY YES; Platelet Count 233 K/mm3 (150-450); RBC Distribution Width CV 19.1 % (11.6-14.6); RBC Distribution Width SD 65.6 fl (35.1-43.9); RET-HE 25.3 pg (30-35); White Blood Count 5.4 K/mm3 (4.4-11.0)
[2022-09-08 05:45] LABS: Differential Indicated SCAN CRITERIA MET
[2022-09-08 06:17] LABS: ALB/GLOB Ratio 0.5 RATIO (0.9-2.4); AST(SGOT) 12 U/L (15-37); Alanine Aminotransfer ALT/SGPT 15 U/L (16-61); Alkaline Phosphatase 55 U/L (45-117); Anion Gap 7 (5-15); BUN 14 mg/dL (7-18); BUN/Creat Ratio 16.6 RATIO (10-20); Chloride 108 mmol/L (98-107); Creatinine, Serum 0.84 mg/dL (0.70-1.30); EST Glomerular Filtration Rate 96 mL/min (>60); Est Glom Filt Rate - Afr Amer 116 mL/min (>60); Estimated Creatinine Clearance 57.99 ml/min; Ferritin 120 ng/mL (26-388); Globulin 3.8 g/dL (2.2-4.2); Glucose 100 mg/dL (74-106); Iron Binding Capacity,Total 200 ug/dL (250-450); Potassium 3.5 mmol/L (3.5-5.1); Protein, Total 5.8 g/dL (6.4-8.2); Sodium Level 142 mmol/L (136-145)
[2022-09-08 06:35] LABS: Anisocytosis 1+; Burr Cells RARE; Differential Comment SCANNED; Macrocytosis RARE; Microcytosis RARE
[2022-09-08 08:16] VITALS: BP 143/87; PULSE 76; RESP 17; TEMP 36.6; O2SAT 98
[2022-09-08 08:26] VITALS: O2SAT 98
[2022-09-08 08:48] LABS: Vitamin B12 617 pg/mL (211-911)
[2022-09-08] MEDS: Enoxaparin 40 MG/0.4 ML Syringe SC (09:35)
--- NOTE | 2022-09-08 09:42 | EX.PCM.CONCC ---
Assessment & Plan Assessment/Plan (1) Pneumomediastinum: (2) Subcutaneous emphysema: QUALIFIERS: Encounter type: initial encounter Qualified Code(s): T79.7XXA - Traumatic subcutaneous emphysema, initial encounter PLAN: Plan RECOMMENDATIONS: 1. Await viral panel 2. Consider upper GI with appropriate contrast if viral panel negative 3. Monitor in observation status 4. Attempt to clarify support system and history 5. Doubt utility of supplemental oxygen IMPRESSIONS: 1. Pneumomediastinum of unclear etiology Patient reportedly has been coughing for several days. Pneumomediastinum can be a function of coughing against a closed glottis with transient tracheal interruption leading to pneumomediastinum. This is typically well-tolerated and less that dissects into a pneumothorax. Medical record is suggestive the patient has a smoking history, but patient denies. It is unlikely that this is related to a bleb as this would be manifesting as a pneumothorax, not pneumomediastinum. Esophageal disruption would be another possible etiology, but patient is not reporting any choking episodes or retching. Patient does have a left lower lobe infiltrate, but it is unclear if this is the cause or effect. Patient does not have a significant leukocytosis, fever or hypoxia to suggest a pneumonia. Could obtain a sputum culture, but cough has been nonproductive per his report. Reasonable to treat with 5 days of antibiotics empirically given complications of cough. This condition typically will not respond to elevated supplemental oxygen levels and will resolve spontaneously. 2. Schizophrenia/poor history/advanced age Complicates care, management, recovery and prognosis. Okay to continue baseline medications from my perspective. Would benefit from obtaining additional information on history HPI Consult Data Date of Consult: 09/08/22 HPI Narrative Reason for Consultation: Pneumomediastinum HPI Narrative: JASMINE SILVA is a 67 M, with past medical history listed below, who presents to [facility] 09/07/2022 secondary to cough and shortness of breath. Patient is a very poor historian, so most of the information is from the electronic medical record. Patient reportedly had complained of feeling more weak and somewhat confused. Patient had reported in the ER that he was having symptoms for at least the last 3 days, but did mention to me that it may have been last week. Patient is stated that the cough is nonproductive and he had had some left-sided chest pain. Patient denies any dysphagia or choking episodes. Patient reportedly lives with his sister, but she was not available for answering questions during my evaluation. In the ER, patient was hemodynamically stable on room air with normal vitals. Laboratory work-up showed a white blood cell count of 5.6, hemoglobin of 9.5 and platelets of 224. Chemistries did show an elevated bicarbonate of 29, but otherwise were relatively unremarkable. Troponins were negative, along with a UA. [facility] level was undetectable. A CT of the head showed diffuse subcutaneous emphysema and this was confirmed with a chest x-ray showing a left lower lobe infiltrate. Patient was initiated on antibiotics and admitted to the hospital for further evaluation. Patient subsequently had a CT scan of the chest showing possible pneumomediastinum, so a pulmonary consult was obtained. On my evaluation, patient was pleasant and interactive. No conversational dyspnea was noted. Patient did report sharp chest pain on the left, but did not have any dyspnea. Patient was not able to tell me the onset of symptoms or any concomitant symptoms. Patient reports that he is a non-smoker with no alcohol or drug history. Patient did not have any history of trauma per his report. Patient is not reporting any problems swallowing his secretions. Patient has not had any abdominal pain. Patient was unable to tell me if anyone has been sick recently in his general vicinity. 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 Review of systems otherwise negative from a constitutional, HEENT, respiratory, cardiovascular, GI, genitourinary, musculoskeletal, skin, neurologic, psychiatric and hematologic system unless stated above. [facility] Medical History DVT (deep venous thrombosis) Former smoker Gastroesophageal reflux disease Hypertension Migraines Myocardial infarct Schizophrenia Home Medications melatonin 5 mg-pyridoxine (vitamin B6) 1 mg tablet (Melatonin (with B6)) 1 ea PO BID 08/11/17 [History Last Taken Unknown] cariprazine 4.5 mg capsule (Vraylar) 4.5 mg PO DAILY 12/03/20 [History Last Taken Unknown] doxepin 50 mg capsule 50 mg PO QHS 12/03/20 [History Last Taken Unknown] guanfacine 1 mg tablet mg 12/03/20 [History Last Taken Unknown] lithium carbonate 300 mg tablet,extended release 300 mg PO BID 12/03/20 [History Last Taken Unknown] Allergy/AdvReac Type Severity Reaction Status Date / Time No Known Allergies Allergy Verified 09/07/22 14:12 Social History Smoking Status: Former smoker substance use type: does not use Physical Exam Const alert and no apparent distress Constitutional Narrative: Oriented to self only. Pleasant and interactive. No coughing during my evaluation HEENT normocephalic HEENT Narrative: Significant crepitus noted throughout the mandibular and cervical region. No bruising or signs of trauma. Eyes PERRL, EOMs intact bilaterally and conjunctivae normal Neck full ROM and no lymphadenopathy General: trachea midline Chest inspection of chest normal Resp normal respiratory effort and no use of accessory muscles Effort and Inspection: Negative for tachypneic Auscultation: Negative for rales, rhonchi or wheezes Cardio regular rate, regular rhythm, S1 normal heart sound, S2 normal heart sound, no murmurs, no rub and no gallops GI normal to inspection, nondistended, normoactive bowel sounds Extremity no clubbing, cyanosis or edema Skin no rashes or lesions noted Skin Narrative: Significant crepitus noted throughout the chest, shoulders and neck Neuro CN's II-XII intact bilaterally, moves all extremities and no focal motor deficits Psych Psych Narrative: Pleasant. Some perseveration noted. Mood & Affect: flat affect Medical Records Data Attestation: I reviewed the patient's medical records Medical records narrative: Patient did have an echocardiogram in 2012 showing an EF of 60% with some diastolic dysfunction and intact atrial septum. No pulmonary function tests are available for review. Lab / Micro Data Attestation: I reviewed the patient's lab results. Lab results narrative: Viral panel currently pending 09/08/22 05:04 09/08/22 05:04 Labs: Laboratory Results - last 24 hr 09/07/22 15:10: WBC 5.6, RBC 3.16 L, Hgb 9.5 L, Hct 29.6 L, MCV 93.7, MCH 30.1, MCHC 32.1, RDW Std Deviation 66.6 H, RDW Coeff of Govind 19.2 H, Plt Count 224, MPV 9.1, Immature Gran % (Auto) 0.200, Neut % (Auto) 65.1, Lymph % (Auto) 13.5 L, [place] % (Auto) 13.1 H, Eos % (Auto) 7.9 H, Baso % (Auto) 0.2, Absolute Neuts (auto) 3.6, Absolute Lymphs (auto) 0.75 L, Nucleated RBC % 0, Differential Comment SCANNED, Anisocytosis 1+, Sodium 139, Potassium 3.5, Chloride 104, Carbon Dioxide 29.0, Anion Gap 6, BUN 12, Creatinine 0.96, Estim Creat Clear Calc 47.52, Est GFR (MDRD) Af Amer 100, Est GFR (MDRD) Non-Af 83, BUN/Creatinine Ratio 12.6, Glucose 92, Calcium 8.2 L, Total Bilirubin 0.40, Direct Bilirubin 0.18, AST 12 L, ALT 16, Alkaline Phosphatase 58, Troponin I High Sens < 3 L, Total Protein 6.5, Albumin 2.2 L, Globulin 4.3 H, Urine Color Yellow, Urine Clarity Clear, Urine pH 7.0, Ur Specific [place] 1.010, Urine Protein Negative, Urine Glucose (UA) Normal, Urine Ketones 5 H, Urine Occult Blood Negative, Urine Nitrite Negative, Urine Bilirubin Negative, Urine Urobilinogen 1 H, Ur Leukocyte Esterase 100 H, Urine RBC 0 SEEN, Urine WBC 5-10 SEEN, Ur Squamous Epith Cells 0 SEEN, Urine Bacteria 1+, Urine Mucus 0 SEEN, [facility] < 0.20 L 09/08/22 05:04: WBC 5.4, RBC 2.80 L, Hgb 8.4 L, Hct 26.0 L, MCV 92.9, MCH 30.0, MCHC 32.3, RDW Std Deviation 65.6 H, RDW Coeff of Govind 19.1 H, Plt Count 233, MPV 9.5, Immature Gran % (Auto) 0.200, Neut % (Auto) 63.0, Lymph % (Auto) 15.8 L, [facility] % (Auto) 13.4 H, Eos % (Auto) 7.6 H, Baso % (Auto) 0.0, Absolute Neuts (auto) 3.4, Absolute Lymphs (auto) 0.85, Nucleated RBC % 0, Differential Comment SCANNED, Anisocytosis 1+, Microcytosis RARE, Macrocytosis RARE, [place] Cells RARE, Retic Count 1.40, Immature Retic Fraction 14.60, Retic Hgb Equivalent 25.3 L, Sodium 142, Potassium 3.5, Chloride 108 H, Carbon Dioxide 27.0, Anion Gap 7, BUN 14, Creatinine 0.84, Estim Creat Clear Calc 57.99, Est GFR (MDRD) Af Amer 116, Est GFR (MDRD) Non-Af 96, BUN/Creatinine Ratio 16.6, Glucose 100, Calcium 8.0 L, Iron Cancelled, TIBC 200 L, Iron Saturation Cancelled, Ferritin 120, Total Bilirubin 0.20, AST 12 L, ALT 15 L, Alkaline Phosphatase 55, Total Protein 5.8 L, Albumin 2.0 L, Globulin 3.8, Albumin/Globulin Ratio 0.5 L, Vitamin B12 617 Micro: Microbiology 09/07/22 22:30 Nasal Secretion SARS-CoV-2 Antigen (Rapid) - Final 09/07/22 15:10 Nasal Secretion SARS-CoV-2 & FLU Antigen (Rapid) - Final Radiology Impression Brain CT 09/07/22 14:22 IMPRESSION: There is diffuse subcutaneous emphysema along the prevertebral space, neck, fisher spear space and mandible. Electronically Signed: Pola Quintana MD at 16:16 EDT , Chest X-Ray 09/07/22 15:38 IMPRESSION: Left lower lobe infiltrate. The right and left supraclavicular region, there is subcutaneous emphysema. Electronically Signed: Pola Quintana MD at 16:13 EDT , Charges/Coding Visit Charges Inpatient E&M: 28767 Init Hosp L2
[2022-09-08] MEDS: 0.9% Saline Lock 10 ML Syringe IV (11:13)
--- NOTE | 2022-09-08 13:41 | NURSING ---
This RN called patient's pharmacy [facility] to get prescription history since patient does not know what he takes.
[2022-09-08 14:38] VITALS: BP 125/87; PULSE 76; RESP 17; TEMP 36.9; O2SAT 96
--- NOTE | 2022-09-08 15:30 | CHAPLAIN ---
Type of Pastoral Visit ___ Initial Visit ___ Follow-up Visit ___ On-call Visit ___ General Patient Visit ___ Spiritual Assessment ___ Family Conference ___ Bereavement ___ Rapid Response ___ Code Blue ___ Other (describe below) Pastoral Care Referral From ___ Patient ___ Family ___ Nurse ___ Physician ___ Associate Curator ___ Business Services Associate ___ Other (describe below) Sacrament/Intervention ___ Active listening ___ Anointing ___ Holiness ___ Bereavement ___ Communion ___ Destiny exploration ___ ___ Life review ___ Prayer ___ Reconciliation ___ Sacrament of Sick ___ Supportive presence ___ Wedding ___ Other (describe below) Pastoral Comments patient is sleeping and is not awakened
--- NOTE | 2022-09-08 17:12 | PN.HOSP_ITS ---
Reason for Visit Reason for Visit: Diagnoses Pneumonia, unspecified organism (09/07/22) Interstitial emphysema (09/07/22) Traumatic subcutaneous emphysema, initial encounter (09/07/22) Subjective Subjective Patient was seen and examined today, he remains on room air, I had pulmonary medicine to see the patient today, they felt that he has a pneumomediastinum and recommended continued antibiotic coverage for the next 5 days. They also felt the patient had a left lower lobe pneumonia, patient's respiratory panel was negative. Patient's white count remains normal. Patient has no complaints of any shortness of breath or chest discomfort. Objective Data Objective Data Vital Signs: Vital Signs Temp Pulse Resp BP Pulse Ox O2 Del Method 98.4 F 76 17 125/87 H 96 Room Air 09/08/22 14:38 09/08/22 14:38 09/08/22 14:38 09/08/22 14:38 09/08/22 14:38 09/08/22 14:39 Oxygen Delivery Method Room Air Weight: 49.4 kg Body Mass Index (BMI) 19.3 Intake & Output: Intake and Output for Last 24 Hours 09/06/22 09/07/22 09/08/22 23:59 23:59 23:59 Intake Total 523 / 523 1201.5 / 1201.5 Output Total 600 / 600 Balance -77 / -77 1201.5 / 1201.5 Lab / Micro Data 09/08/22 05:04 09/08/22 05:04 Labs: Laboratory Results - last 24 hr 09/08/22 05:04: WBC 5.4, RBC 2.80 L, Hgb 8.4 L, Hct 26.0 L, MCV 92.9, MCH 30.0, MCHC 32.3, RDW Std Deviation 65.6 H, RDW Coeff of Govind 19.1 H, Plt Count 233, MPV 9.5, Immature Gran % (Auto) 0.200, Neut % (Auto) 63.0, Lymph % (Auto) 15.8 L, [place] % (Auto) 13.4 H, Eos % (Auto) 7.6 H, Baso % (Auto) 0.0, Absolute Neuts (auto) 3.4, Absolute Lymphs (auto) 0.85, Nucleated RBC % 0, Differential Comment SCANNED, Anisocytosis 1+, Microcytosis RARE, Macrocytosis RARE, Vicky Cells RARE, Retic Count 1.40, Immature Retic Fraction 14.60, Retic Hgb Equivalent 25.3 L, Sodium 142, Potassium 3.5, Chloride 108 H, Carbon Dioxide 27.0, Anion Gap 7, BUN 14, Creatinine 0.84, Estim Creat Clear Calc 57.99, Est GFR (MDRD) Af Amer 116, Est GFR (MDRD) Non-Af 96, BUN/Creatinine Ratio 16.6, Glucose 100, Calcium 8.0 L, Iron Cancelled, TIBC 200 L, Iron Saturation Cancelled, Ferritin 120, Total Bilirubin 0.20, AST 12 L, ALT 15 L, Alkaline Phosphatase 55, Total Protein 5.8 L , Albumin 2.0 L, Globulin 3.8, Albumin/Globulin Ratio 0.5 L, Vitamin B12 617 Micro: Microbiology 09/08/22 08:10 Mucosa - Nose Respiratory Panel (PCR) - Final 09/07/22 22:30 Nasal Secretion SARS-CoV-2 Antigen (Rapid) - Final 09/07/22 15:10 Nasal Secretion SARS-CoV-2 & FLU Antigen (Rapid) - Final Physical Exam Const alert and no apparent distress Constitutional Narrative: Patient has a blunted affect with some cognitive impairment noted General Appearance: cooperative and well developed Orientation / Consciousness: awake, oriented to person and oriented to place HEENT normocephalic, head/scalp atraumatic and moist oral mucous membranes HEENT Narrative: There is noted to be palpable subcutaneous emphysema in the neck area Head and Scalp: normocephalic Eyes PERRL, EOMs intact bilaterally and conjunctivae normal Neck supple, no JVD, thyroid normal and no carotid bruits General: trachea midline Resp normal respiratory effort, no retractions, no use of accessory muscles and clear to auscultation bilaterally Auscultation: Negative for rales, rhonchi or wheezes Cardio regular rate, regular rhythm, S1 normal heart sound, S2 normal heart sound, no murmurs, no rub and no gallops GI normal to inspection, nondistended, normoactive bowel sounds, soft to palpation, non-tender and non-distended Extremity no clubbing, cyanosis or edema Skin no rashes or lesions noted General Skin Exam: no breakdown Neuro oriented x3, CN's II-XII intact bilaterally, moves all extremities, no focal motor deficits and no sensory deficits noted Sensorium / Orientation: awake, alert, oriented to person and oriented to place Speech: speech normal Psych Psych Narrative: Patient has cognitive impairment but is able to answer simple questions appropriately Assessment & Plan Assessment/Plan (1) Pneumomediastinum: PLAN: Plan 1. Pneumomediastinum-patient is currently not requiring supplemental oxygen pulmonary medicine has seen the patient and is participating in his care #2 left lower lobe infiltrate-possible pneumonia, patient remains on IV antibiotics at this time, respiratory panel was negative #3 schizophrenia-complicates care, medical course, recovery, and prognosis #4 subcutaneous emphysema-no treatment needed at this time #5 anemia-etiology unclear, I will reorder the patient's iron level at this time-it appears his previous iron level was canceled Total clinical time spent by myself addressing the patient's medical issues, reviewing all of his data, and collaborating with patient's care team: 35 minutes Charges/Coding Visit Charges Inpatient E&M: 90406 Subs Hosp L2
[2022-09-08 21:00] VITALS: BP 156/81; PULSE 81; RESP 18; TEMP 36.6; O2SAT 100
[2022-09-08] MEDS: MELATONIN 10 MG TABLET PO (21:08)
[2022-09-09 03:15] VITALS: BP 156/89; PULSE 82; RESP 18; TEMP 36.3; O2SAT 97
--- NOTE | 2022-09-09 08:42 | PN.CC_ITS ---
Assessment & Plan Assessment/Plan (1) Pneumomediastinum: (2) Subcutaneous emphysema: QUALIFIERS: Encounter type: initial encounter Qualified Code(s): T79.7XXA - Traumatic subcutaneous emphysema, initial encounter PLAN: Plan RECOMMENDATIONS: 1. Defer to hospitalist on possible upper GI with appropriate contrast 2. Increase activity as tolerated 3. Walking oximetry prior to discharge 4. Possible discharge later today IMPRESSIONS: 1. Pneumomediastinum of unclear etiology Patient reportedly has been coughing for several days. Pneumomediastinum can be a function of coughing against a closed glottis with transient tracheal interruption leading to pneumomediastinum. This is typically well-tolerated and less that dissects into a pneumothorax. Medical record is suggestive the patient has a smoking history, but patient denies. It is unlikely that this is related to a bleb as this would be manifesting as a pneumothorax, not pneumomediastinum. Esophageal disruption would be another possible etiology, but patient is not reporting any choking episodes or retching. Patient does have a left lower lobe infiltrate, but it is unclear if this is the cause or effect. Patient does not have a significant leukocytosis, fever or hypoxia to suggest a pneumonia. Could obtain a sputum culture, but cough has been nonproductive per his report. Reasonable to treat with 5 days of antibiotics empirically given complications of cough. This condition typically will not respond to elevated supplemental oxygen levels and will resolve spontaneously. Patient has been observed for over 24 hours with no change in status. If patien t has a reliable way to return if there are complications, he can likely be discharged. As stated previously, patient is at risk for developing pneumothorax, but spontaneous pneumomediastinum typically resolves over the course of days to weeks and he does not need to be hospitalized for all of this time. Patient should have a repeat CT scan in 4 to 6 weeks to document resolution 2. Schizophrenia/poor history/advanced age Complicates care, management, recovery and prognosis. Okay to continue baseline medications from my perspective. Would benefit from obtaining additional information on history Subjective Subjective Patient did okay overnight. No change in respiratory status has been noted. Patient is not reporting any change in left-sided chest pain. Patient states he has been tolerating p.o. well. Objective Data Objective Data Vital Signs: Vital Signs Temp Pulse Resp BP Pulse Ox O2 Del Method 36.3 C L 82 18 156/89 H 97 Room Air 09/09/22 03:15 09/09/22 03:15 09/09/22 03:15 09/09/22 03:15 09/09/22 03:15 09/09/22 03:15 Oxygen Delivery Method Room Air Weight: 49.4 kg Body Mass Index (BMI) 19.3 Intake & Output: Intake and Output for Last 24 Hours 09/07/22 09/08/22 09/09/22 23:59 23:59 23:59 Intake Total 523 / 523 2241.5 / 2241.5 Output Total 600 / 600 Balance -77 / -77 2241.5 / 2241.5 Lab / Micro Data Attestation: I reviewed the patient's lab results. Lab results narrative: Viral panel negative 09/08/22 05:04 09/08/22 05:04 Labs: Laboratory Results - last 24 hr 09/08/22 05:04: Vitamin B12 617 09/08/22 : Miscellaneous Test Cancelled Micro: Microbiology 09/08/22 08:10 Mucosa - Nose Respiratory Panel (PCR) - Final 09/07/22 22:30 Nasal Secretion SARS-CoV-2 Antigen (Rapid) - Final 09/07/22 15:10 Nasal Secretion SARS-CoV-2 & FLU Antigen (Rapid) - Final Physical Exam Const alert and no apparent distress Constitutional Narrative: Oriented to self only. Pleasant and interactive. No coughing during my joseph luation HEENT normocephalic Eyes PERRL, EOMs intact bilaterally and conjunctivae normal Neck full ROM and no lymphadenopathy General: trachea midline Chest inspection of chest normal Resp normal respiratory effort and no use of accessory muscles Effort and Inspection: Negative for tachypneic Auscultation: Negative for rales, rhonchi or wheezes Cardio regular rate, regular rhythm, S1 normal heart sound, S2 normal heart sound, no murmurs, no rub and no gallops GI normal to inspection, nondistended, normoactive bowel sounds Extremity no clubbing, cyanosis or edema Skin no rashes or lesions noted Skin Narrative: Significant crepitus noted throughout the chest, shoulders and neck Neuro CN's II-XII intact bilaterally, moves all extremities and no focal motor deficits Psych Psych Narrative: Pleasant. Some perseveration noted. Mood & Affect: flat affect Charges/Coding Visit Charges Inpatient E&M: 97690 Subs Hosp L2
[2022-09-09 09:15] VITALS: BP 132/84; PULSE 75; RESP 16; TEMP 36.7; O2SAT 97
[2022-09-09 09:36] VITALS: O2SAT 97
[2022-09-09] MEDS: Enoxaparin 40 MG/0.4 ML Syringe SC (09:58)
--- NOTE | 2022-09-09 15:04 | CHAPLAIN ---
Type of Pastoral Visit _x__ Initial Visit ___ Follow-up Visit ___ On-call Visit ___ General Patient Visit ___ Spiritual Assessment ___ Family Conference ___ Bereavement ___ Rapid Response ___ Code Blue ___ Other (describe below) Pastoral Care Referral From __x_ Patient ___ Family ___ Nurse ___ Physician ___ Butter Liquefier ___ Frog Catcher ___ Other (describe below) Sacrament/Intervention _x__ Active listening ___ Anointing ___ Yazidi ___ Bereavement ___ Communion ___ Destiny exploration ___ ___ Life review _x__ Prayer ___ Reconciliation ___ Sacrament of Sick _x__ Supportive presence ___ Wedding ___ Other (describe below) Pastoral Comments
[2022-09-09 16:00] VITALS: BP 146/84; PULSE 68; RESP 16; TEMP 36.4; O2SAT 98
--- NOTE | 2022-09-09 17:47 | PN.HOSP_ITS ---
Reason for Visit Reason for Visit: Diagnoses Pneumonia, unspecified organism (09/07/22) Interstitial emphysema (09/07/22) Traumatic subcutaneous emphysema, initial encounter (09/07/22) Subjective Subjective Patient was seen and examined today, I change the patient's antibiotics to oral antibiotics today, due to a drop in his hemoglobin today I have decided to keep the patient in the hospital and monitor his hemoglobin. It is not possible to o btain an EGD and colonoscopy this weekend unless the patient has active bleeding, it appears that his hemoglobin in June of this year was low but there was not follow-up concerning this result. Patient's iron level which was done this admission was 12, I wrote for IV Venofer today. I had a discussion with the patient's PCP by phone today and was told that the patient has pica, he eats cigarette bites and dog feces at times. I had a discussion with the patient's niece regarding the work-up of the patient's anemia, she states that the patient's POA (her mother) would want testing done, patient is unable to give permission for testing due to cognitive problems from his schizophrenia. Objective Data Objective Data Vital Signs: Vital Signs Temp Pulse Resp BP Pulse Ox O2 Del Method 97.5 F L 68 16 146/84 H 98 Room Air 09/09/22 16:00 09/09/22 16:00 09/09/22 16:00 09/09/22 16:00 09/09/22 16:00 09/09/22 16:18 Oxygen Delivery Method Room Air Weight: 49.4 kg Body Mass Index (BMI) 19.3 Intake & Output: Intake and Output for Last 24 Hours 09/07/22 09/08/22 09/09/22 23:59 23:59 23:59 Intake Total 523 / 523 2241.5 / 2241.5 975 / 975 Output Total 600 / 600 Balance -77 / -77 2241.5 / 2241.5 975 / 975 Lab / Micro Data 09/08/22 05:04 09/08/22 05:04 Labs: Laboratory Results - last 24 hr 09/08/22 05:04: Miscellaneous Test 09/08/22 : Miscellaneous Test Cancelled Micro: Microbiology 09/08/22 08:10 Mucosa - Nose Respiratory Panel (PCR) - Final 09/07/22 22:30 Nasal Secretion SARS-CoV-2 Antigen (Rapid) - Final 09/07/22 15:10 Nasal Secretion SARS-CoV-2 & FLU Antigen (Rapid) - Final Radiography Diagnostic Testing: Radiology Impression Chest CT 09/07/22 17:51 IMPRESSION: There is no pneumothorax. There is left lower lobe and lingular infiltrate. There is diffuse Subcutaneous emphysema of the chest extending to the neck. There is pneumomediastinum. Electronically Signed: Pola Quintana MD at 19:30 EDT , Physical Exam Narrative alert and no apparent distress Constitutional Narrative: Patient has a blunted affect with some cognitive impairment noted General Appearance: cooperative and well developed Orientation / Consciousness: awake, oriented to person and oriented to place HEENT normocephalic, head/scalp atraumatic and moist oral mucous membranes Head and Scalp: normocephalic Eyes PERRL, EOMs intact bilaterally and conjunctivae normal Neck supple, no JVD, thyroid normal and no carotid bruits General: trachea midline Resp normal respiratory effort, no retractions, no use of accessory muscles and clear to auscultation bilaterally Auscultation: Negative for rales, rhonchi or wheezes Cardio regular rate, regular rhythm, S1 normal heart sound, S2 normal heart sound, no m urmurs, no rub and no gallops GI normal to inspection, nondistended, normoactive bowel sounds, soft to palpation, non-tender and non-distended Extremity no clubbing, cyanosis or edema Skin no rashes or lesions noted General Skin Exam: no breakdown Neuro oriented x3, CN's II-XII intact bilaterally, moves all extremities, no focal motor deficits and no sensory deficits noted Sensorium / Orientation: awake, alert, oriented to person and oriented to place Speech: speech normal Psych Psych Narrative: Patient has cognitive impairment but is able to answer simple questions a ppropriately Assessment & Plan Assessment/Plan (1) Pneumomediastinum: PLAN: Plan 1. Pneumomediastinum-patient is currently not requiring supplemental oxygen pulmonary medicine has seen the patient and is participating in his care #2 left lower lobe infiltrate-possible pneumonia, patient was changed to oral Levaquin today, his IV antibiotics were stopped #3 schizophrenia-complicates care, medical course, recovery, and prognosis #4 subcutaneous emphysema-no treatment needed at this time #5 Iron deficiency anemia-etiology unclear, I will place the patient on Protonix, patient will receive Venofer today and tomorrow, hemoglobin will be rechecked tomorrow. Patient will need a work-up as an outpatient if there is no active bleeding tomorrow (colonoscopy and EGD), if the patient's hemoglobin drops significantly tomorrow, he will need to be kept in the hospital and have endoscopy performed on Monday. Total clinical time spent by myself addressing the patient's medical issues, reviewing all of his data, and collaborating with patient's care team: 35 minutes Charges/Coding Visit Charges Inpatient E&M: 43421 Subs Hosp L2
[2022-09-09] MEDS: Pantoprazole Sodium 40 MG Tablet PO (18:21)
[2022-09-09 20:46] VITALS: BP 134/80; PULSE 71; RESP 16; TEMP 36.6; O2SAT 96
[2022-09-09] MEDS: MELATONIN 10 MG TABLET PO (20:46)
[2022-09-10 02:50] VITALS: BP 130/78; PULSE 75; RESP 16; TEMP 36.4; O2SAT 96
[2022-09-10] MEDS: levoFLOXacin 500 MG Tablet PO (06:09)
[2022-09-10 06:29] LABS: Absolute Lymphocyte Count 1.51 X10^3/uL (0.83-4.51); Absolute Neutrophil Count 2.4 X10^3/uL (2.0-7.7); Basophil# 0.03 X10^3/uL; Basophil% 0.6 % (0-1); Eosinophil# 0.66 X10^3/uL; Eosinophils% 12.3 % (0-5); Hematocrit 28.2 % (40-54); Hemoglobin 8.8 g/dL (13.0-16.5); Lymphocyte # 1.51 X10^3/ul (0.83-4.51); Lymphocyte % 28.2 % (19-41); Mean Corp Hgb Conc 31.2 g/dL (32-36); Mean Corpuscular Hgb 28.9 pg (27.0-32.0); Mean Corpuscular Volume 92.8 fL (80-94); Mean Platelet Vol. 9.3 fl (6.2-12.0); Monocyte# 0.71 X10^3/uL; Monocyte% 13.3 % (0-10); NRBC Flagged by Analyzer 0 % (0-5); Neutrophil # 2.41 X10^3/uL (2.7-7.7); Platelet Count 329 K/mm3 (150-450); RBC Distribution Width CV 18.6 % (11.6-14.6); RBC Distribution Width SD 64.3 fl (35.1-43.9); Red Blood Count 3.04 M/mm3 (4.6-6.2); White Blood Count 5.4 K/mm3 (4.4-11.0)
[2022-09-10] MEDS: 0.9% Saline Lock 10 ML Syringe IV (08:15)
[2022-09-10] MEDS: Pantoprazole Sodium 40 MG Tablet PO (08:15)
[2022-09-10] MEDS: Enoxaparin 40 MG/0.4 ML Syringe SC (08:15)
[2022-09-10 08:30] VITALS: BP 129/81; PULSE 83; RESP 18; TEMP 36.4; O2SAT 96
--- NOTE | 2022-09-10 08:41 | PN.CC_ITS ---
Assessment & Plan Assessment/Plan (1) Pneumomediastinum: (2) Subcutaneous emphysema: QUALIFIERS: Encounter type: initial encounter Qualified Code(s): T79.7XXA - Traumatic subcutaneous emphysema, initial encounter PLAN: Plan RECOMMENDATIONS: 1. Defer to hospitalist on possible upper GI with appropriate contrast 2. Increase activity as tolerated 3. Walking oximetry prior to discharge 4. Hemodynamically stable on room air. Will sign off from a critical care/pulmonary perspective IMPRESSIONS: 1. Pneumomediastinum of unclear etiology Patient reportedly has been coughing for several days. Pneumomediastinum can be a function of coughing against a closed glottis with transient tracheal interruption leading to pneumomediastinum. This is typically well-tolerated and less that dissects into a pneumothorax. Medical record is suggestive the patient has a smoking history, but patient denies. It is unlikely that this is related to a bleb as this would be manifesting as a pneumothorax, not pneumomediastinum. Esophageal disruption would be another possible etiology, but patient is not reporting any choking episodes or retching. Patient does have a left lower lobe infiltrate, but it is unclear if this is the cause or eff ect. Patient does not have a significant leukocytosis, fever or hypoxia to suggest a pneumonia. Could obtain a sputum culture, but cough has been nonproductive per his report. Reasonable to treat with 5 days of antibiotics empirically given complications of cough. This condition typically will not respond to elevated supplemental oxygen levels and will resolve spontaneously. Patient has been observed for over 48 hours with no change in status. Subcu air appears to be improving. If patient has a reliable way to return if there are complications, he can likely be discharged. As stated previously, patient is at risk for developing pneumothorax, but spontaneous pneumomediastinum typically resolves over the course of days to weeks and he does not need to be hospitalized for all of this time. Patient should have a repeat CT scan in 4 to 6 weeks to document resolution 2. Schizophrenia/poor history/advanced age Complicates care, management, recovery and prognosis. Okay to continue baseline medications from my perspective. Would benefit from obtaining additional information on history Subjective Subjective Patient did well overnight. Patient still having a periodic cough, but overall feels improved. Patient states his pain is much improved in the left chest, but still present. Patient has not had any nausea or vomiting. Patient is tolerating p.o. well. No obvious clinical bleeding has been noted. Objective Data Objective Data Vital Signs: Vital Signs Temp Pulse Resp BP Pulse Ox O2 Del Method 36.4 C L 83 18 129/81 H 96 Room Air 09/10/22 08:30 09/10/22 08:30 09/10/22 08:30 09/10/22 08:30 09/10/22 08:30 09/10/22 08:30 Oxygen Delivery Method Room Air Weight: 49.4 kg Body Mass Index (BMI) 19.3 Intake & Output: Intake and Output for Last 24 Hours 09/08/22 09/09/22 09/10/22 23:59 23:59 23:59 Intake Total 2241.5 / 2241.5 1375 / 1375 650 / 650 Output Total 550 / 550 Balance 2241.5 / 2241.5 1375 / 825 100 / 100 Lab / Micro Data Attestation: I reviewed the patient's lab results. 09/10/22 05:43 09/08/22 05:04 Labs: Laboratory Results - last 24 hr 09/08/22 05:04: Miscellaneous Test 09/10/22 05:43: WBC 5.4, RBC 3.04 L, Hgb 8.8 L, Hct 28.2 L, MCV 92.8, MCH 28.9, MCHC 31.2 L, RDW Std Deviation 64.3 H, RDW Coeff of Govind 18.6 H, Plt Count 329, MPV 9.3, Immature Gran % (Auto) 0.600, Neut % (Auto) 45.0 L, Lymph % (Auto) 28.2, [place] % (Auto) 13.3 H, Eos % (Auto) 12.3 H, Baso % (Auto) 0.6, Absolute Neuts (auto) 2.4, Absolute Lymphs (auto) 1.51, Nucleated RBC % 0 Micro: Microbiology 09/07/22 16:30 Blood Culture (Wb) - Anticubital Left Blood Culture - Prelimi nary No growth in 48 hours. 09/07/22 16:26 Blood Culture (Wb) - Right Wrist Blood Culture - Preliminary No growth in 48 hours. 09/08/22 08:10 Mucosa - Nose Respiratory Panel (PCR) - Final 09/07/22 22:30 Nasal Secretion SARS-CoV-2 Antigen (Rapid) - Final 09/07/22 15:10 Nasal Secretion SARS-CoV-2 & FLU Antigen (Rapid) - Final Radiography Diagnostic Testing: Radiology Impression Chest CT 09/07/22 17:51 IMPRESSION: There is no pneumothorax. There is left lower lobe and lingular infiltrate. There is diffuse Subcutaneous emphysema of the chest extending to the neck. There is pneumomediastinum. Electronically Signed: Pola Quintana MD at 19:30 EDT , Physical Exam Const alert and no apparent distress Constitutional Narrative: Oriented to self only. Pleasant and interactive. No coughing during my evaluation. Sitting in the chair on my evaluation HEENT normocephalic Eyes PERRL, EOMs intact bilaterally and conjunctivae normal Neck full ROM and no lymphadenopathy General: trachea midline Chest inspection of chest normal Chest Narrative: Crepitus across the chest is improving and almost resolved. Still palpable in t he neck Resp normal respiratory effort and no use of accessory muscles Effort and Inspection: Negative for tachypneic Auscultation: Negative for rales, rhonchi or wheezes Cardio regular rate, regular rhythm, S1 normal heart sound, S2 normal heart sound, no murmurs, no rub and no gallops GI normal to inspection, nondistended, normoactive bowel sounds Extremity no clubbing, cyanosis or edema Skin no rashes or lesions noted Skin Narrative: Significant crepitus noted throughout the neck. Improved across the shoulders and chest Neuro CN's II-XII intact bilaterally, moves all extremities and no focal motor deficits Psych Psych Narrative: Pleasant. Some perseveration noted. Mood & Affect: flat affect Charges/Coding Visit Charges Inpatient E&M: 84260 Subs Hosp L2
--- NOTE | 2022-09-10 12:42 | DCINST_ITS ---
Discharge Instructions Diet Discharge Diet: No restrictions Activity Discharge Activity: Return to Normal Activity Weight Bearing Status: Full weight bearing Follow Up Care Test Results: Test results from this visit will be discussed in further detail at your follow- up appointment, if applicable. Discharge Plan Admission Admit Date/Time: 09/07/22 17:52 Primary Reason for Your Visit: PNEUMOMEDIASTEINUM, ANEMIA, PNEUMONIA Attending Provider: Hever Sow Primary Care Provider: Javid Graf Consulting Providers: Dennis Casillas; Everette Hagan; Alexi García; Mohan Griffith; Sebastian Dockery; Angela Moscoso PAYROLL AUDITOR Instructions Additional Instructions / Restrictions: yOU WILL NEED TO FOLLOW UP WITH DR. GRAF AND GET AN EGD AND COLONOSCOPY SET UP Discharge Orders/Prescriptions Prescriptions: New pantoprazole 40 mg Tablet,Delayed Release (Dr/Ec) 40 mg PO DAILY Qty: 30 0RF levofloxacin 500 mg Tablet 500 mg PO DAILY@0600 Qty: 2 0RF Rx Instructions: START ON 09/11/22 Continued melatonin-pyridoxine (vit B6) [Melatonin (with B6)] 1 EACH tablet 1 ea PO BID doxepin 50 mg capsule 50 mg PO QHS Patient Comments: TAKE 1 CAPSULE BY MOUTH EVERY NIGHT AT BEDTIME guanfacine 1 mg tablet 1 mg PO .HS Patient Comments: TAKE 1 TABLET BY MOUTH before bed ascorbic acid (vitamin C) 1,000 mg tablet 1 g PO DAILY Patient Comments: TAKE 1 TABLET BY MOUTH DAILY divalproex 250 mg tablet,delayed release (DR/EC) 750 mg PO BID Patient Comments: Take 3 (three) Tablet by mouth twice daily guanfacine 2 mg tablet 2 mg PO .hs Patient Comments: TAKE 1 TABLET BY MOUTH AT BEDTIME lamotrigine 25 mg tablet 25 mg PO BID Patient Comments: TAKE 1 TABLET BY MOUTH TWICE DAILY nicotine (polacrilex) 2 mg gum 2 mg mucous membrane Q4H PRN (Reason: nicotine cravings) Patient Comments: Chew one piece as directed every 4 hours during the day (5 pieces per day). olanzapine 20 mg tablet 20 mg PO .hs Patient Comments: TAKE 1 TABLET BY MOUTH AT BEDTIME prazosin 5 mg capsule 5 mg PO .HS Patient Comments: Take 1 (one) Capsule at bedtime to prevent nightmares Changed ferrous sulfate [FeroSul] 325 mg (65 mg iron) tablet 325 mg PO BIDCM Qty: 1 0RF Patient Comments: TAKE 1 TABLET BY MOUTH DAILY Referrals / Follow Up: Javid Graf MD [Primary Care Provider] - In 1 Week Disposition Disposition (needs filled in before D/C Order can be placed): Home, Self Care
--- NOTE | 2022-09-10 12:53 | PCM.DC.SUM ---
Providers Date of Admission: 09/07/22 Date of Discharge: 09/10/22 Primary Care Physician: Dr. Javid Graf MD Consultations 09/08/22 07:45 Consult: Instruction Assistant Principal / Pulmonary Medicine Routine Consulting Provider: Pulmonary Medicine [facility] [place] Reason for Consult: ? pneumonia EMERGENT Consult: No MD Notified: Yes Date Notified: 09/08/22 Time Notified: 07:45 Method of Notification: Verbal Reason For Visit: PNEUMONIA Diagnosis Discharge Diagnosis (1) Pneumomediastinum: Status: Acute Code(s): J98.2 - Interstitial emphysema (2) Subcutaneous emphysema: Status: Acute Code(s): T79.7XXA - Traumatic subcutaneous emphysema, initial encounter Qualifiers: Encounter type: initial encounter Qualified Code(s): T79.7XXA - Traumatic subcutaneous emphysema, initial encounter Plan 1. Pneumomediastinum-patient is currently not requiring supplemental oxygen pulmonary medicine has seen the patient and is participating in his care #2 left lower lobe infiltrate-possible pneumonia, patient was changed to oral Levaquin today, his IV antibiotics were stopped #3 schizophrenia-complicates care, medical course, recovery, and prognosis #4 subcutaneous emphysema-no treatment needed at this time #5 Iron deficiency anemia-etiology unclear, I will place the patient on Protonix, patient will receive Venofer today and tomorrow, hemoglobin will be rechecked tomorrow. Patient will need a work-up as an outpatient if there is no active bleeding tomorrow (colonoscopy and EGD), if the patient's hemoglobin drops significantly tomorrow, he will need to be kept in the hospital and have endoscopy performed on Monday. Total clinical time spent by myself addressing the patient's medical issues, reviewing all of his data, and collaborating with patient's care team: 35 minutes Medications at Discharge Home Medications melatonin 5 mg-pyridoxine (vitamin B6) 1 mg tablet (Melatonin (with B6)) 1 ea PO BID 08/11/17 doxepin 50 mg capsule 50 mg PO [facility] mental health 12/03/20 guanfacine 1 mg tablet 1 mg PO .HS sleep 12/03/20 ascorbic acid (vitamin C) 1,000 mg tablet 1 g PO DAILY supplement 09/08/22 divalproex 250 mg tablet,delayed release 750 mg PO BID schizophrenia 09/08/22 guanfacine 2 mg tablet 2 mg PO .hs sleep 09/08/22 lamotrigine 25 mg tablet 25 mg PO BID impulse disorder 09/08/22 nicotine (polacrilex) 2 mg gum 2 mg mucous membrane Q4H PRN nicotine cravings 09/08/22 olanzapine 20 mg tablet 20 mg PO .hs sleep disorder 09/08/22 prazosin 5 mg capsule 5 mg PO .HS prevent nightmares 09/08/22 ferrous sulfate 325 mg (65 mg iron) tablet (FeroSul) 325 mg PO BIDCM supplement #1 TAB 09/10/22 levofloxacin 500 mg tablet 500 mg PO DAILY@0600 #2 tabs 09/10/22 pantoprazole 40 mg tablet,delayed release 40 mg PO DAILY #30 tabs 09/10/22 Hospital Course Operations None Procedures None Summary of Care Provided Minutes Spent on Discharge: 31 Hospital Course: 7-year-old white male was seen in the emergency room at [facility] after being brought in by his family with complaints of cough and shortness of breath, they believe the patient had been more weak than normal and somewhat confused. Symptoms have been going on for 3 days, patient has schizophrenia and lives with his family. Work-up in the emergency room included a chest x-ray and a CT scan of the head, CT scan of the head did not show any acute process, CBC was unremarkable, hemoglobin was slightly low at 9.5, patient's chemistry profile was unremarkable, chest x-ray showed a left lung infiltrate and subcutaneous air in the neck area in the right and left supraclavicular region. There is also noted to be diffuse subcutaneous emphysema noted along the paravertebral space neck histology aide space and mandible, this was noted on the brain CT. Patient was admitted to PCU for community-acquired pneumonia and subcutaneous emphysema, chest CT was ordered to rule out any underlying lung pathology, COVID-19 antigen was unremarkable. Patient's chest CT showed pneumomediastinum, he was seen in consultation by pulmonary medicine who recommended continuing a 5-day course of antibiotics for possible pneumonia. Patient was noted to have a low hemoglobin during his hospital stay, serum iron level was drawn which was low, it was also noted that the patient's hemoglobin was low in June 2022. This was not addressed by his PCP who I contacted by phone. Patient did not require oxygen during his hospital stay. Patient was monitored in the hospital for drop in his hemoglobin, his hemoglobin did not decline significantly and it was felt that he could have his anemia worked up as an outpatient, I had numerous discussions with the patient's niece who is his POA about this, the day of discharge I was unable to get a hold of her to let her know I was discharging the patient so I wrote instructions on the patient's instruction sheet to follow-up with his PCP. I also talked with his PCP (Dr. Javid Graf) and let him know that he needs to set the patient up for an EGD and a colonoscopy due to the patient's anemia. On 09/10/2022, patient was seen and examined:alert and no apparent distress Constitutional Narrative: Patient has a blunted affect with some cognitive impairment noted General Appearance: cooperative and well developed Orientation / Consciousness: awake, oriented to person and oriented to place HEENT normocephalic, head/scalp atraumatic and moist oral mucous membranes Head and Scalp: normocephalic Eyes PERRL, EOMs intact bilaterally and conjunctivae normal Neck supple, no JVD, thyroid normal and no carotid bruits General: trachea midline Resp normal respiratory effort, no retractions, no use of accessory muscles and clear to auscultation bilaterally Auscultation: Negative for rales, rhonchi or wheezes Cardio regular rate, regular rhythm, S1 normal heart sound, S2 normal heart sound, no murmurs, no rub and no gallops GI normal to inspection, nondistended, normoactive bowel sounds, soft to palpation, non-tender and non-distended Extremity no clubbing, cyanosis or edema Skin no rashes or lesions noted General Skin Exam: no breakdown Neuro oriented x3, CN's II-XII intact bilaterally, moves all extremities, no focal motor deficits and no sensory deficits noted Sensorium / Orientation: awake, alert, oriented to person and oriented to place Speech: speech normal Psych Psych Narrative: Patient has cognitive impairment but is able to answer simple questions appropriately The etiology of the patient's pneumomediastinum was not determined. Patient was discharged in stable condition on 09/10/2022. Weight / BMI Weight Weight: 49.4 kg Body Mass Index (BMI) 19.3 ABG / Lab / Microbiology Data 09/10/22 05:43 09/08/22 05:04 Laboratory: Laboratory Results - last 24 hr 09/08/22 05:04: Miscellaneous Test 09/10/22 05:43: WBC 5.4, RBC 3.04 L, Hgb 8.8 L, Hct 28.2 L, MCV 92.8, MCH 28.9, MCHC 31.2 L, RDW Std Deviation 64.3 H, RDW Coeff of Govind 18.6 H, Plt Count 329, MPV 9.3, Immature Gran % (Auto) 0.600, Neut % (Auto) 45.0 L, Lymph % (Auto) 28.2, [place] % (Auto) 13.3 H, Eos % (Auto) 12.3 H, Baso % (Auto) 0.6, Absolute Neuts (auto) 2.4, Absolute Lymphs (auto) 1.51, Nucleated RBC % 0 Microbiology: Microbiology 09/07/22 16:30 Blood Culture (Wb) - Anticubital Left Blood Culture - Preliminary No growth in 48 hours. 09/07/22 16:26 Blood Culture (Wb) - Right Wrist Blood Culture - Preliminary No growth in 48 hours. 09/08/22 08:10 Mucosa - Nose Respiratory Panel (PCR) - Final 09/07/22 22:30 Nasal Secretion SARS-CoV-2 Antigen (Rapid) - Final 09/07/22 15:10 Nasal Secretion SARS-CoV-2 & FLU Antigen (Rapid) - Final Radiography Diagnostic Testing: Radiology Impression Chest CT 09/07/22 17:51 IMPRESSION: There is no pneumothorax. There is left lower lobe and lingular infiltrate. There is diffuse Subcutaneous emphysema of the chest extending to the neck. There is pneumomediastinum. Electronically Signed: Pola Quintana MD at 19:30 EDT Reading Location ID and State: [facility] / [place] , Service support , D/C Instructions Discharge Diet: No restrictions Weight Bearing Status: Full weight bearing Meaningful Use Info Meaningful Use Diagnoses (Choose all that apply): None applicable Discharge Plan Admission Admit Date/Time: 09/07/22 17:52 Primary Reason for Your Visit: PNEUMOMEDIASTEINUM, ANEMIA, PNEUMONIA Attending Provider: Hever Sow Primary Care Provider: Javid Graf Consulting Providers: Dennis Casillas; Everette Hagan; Alexi García; Mohan Griffith; Sebastian Dockery; Angela Moscoso RAILROAD BRAKE REPAIRER Instructions Additional Instructions / Restrictions: yOU WILL NEED TO FOLLOW UP WITH DR. GRAF AND GET AN EGD AND COLONOSCOPY SET UP Discharge Orders/Prescriptions Prescriptions: New pantoprazole 40 mg Tablet,Delayed Release (Dr/Ec) 40 mg PO DAILY Qty: 30 0RF levofloxacin 500 mg Tablet 500 mg PO DAILY@0600 Qty: 2 0RF Rx Instructions: START ON 09/11/22 Continued melatonin-pyridoxine (vit B6) [Melatonin (with B6)] 1 EACH tablet 1 ea PO BID doxepin 50 mg capsule 50 mg PO QHS Patient Comments: TAKE 1 CAPSULE BY MOUTH EVERY NIGHT AT BEDTIME guanfacine 1 mg tablet 1 mg PO .HS Patient Comments: TAKE 1 TABLET BY MOUTH before bed ascorbic acid (vitamin C) 1,000 mg tablet 1 g PO DAILY Patient Comments: TAKE 1 TABLET BY MOUTH DAILY divalproex 250 mg tablet,delayed release (DR/EC) 750 mg PO BID Patient Comments: Take 3 (three) Tablet by mouth twice daily guanfacine 2 mg tablet 2 mg PO .hs Patient Comments: TAKE 1 TABLET BY MOUTH AT BEDTIME lamotrigine 25 mg tablet 25 mg PO BID Patient Comments: TAKE 1 TABLET BY MOUTH TWICE DAILY nicotine (polacrilex) 2 mg gum 2 mg mucous membrane Q4H PRN (Reason: nicotine cravings) Patient Comments: Chew one piece as directed every 4 hours during the day (5 pieces per day). olanzapine 20 mg tablet 20 mg PO .hs Patient Comments: TAKE 1 TABLET BY MOUTH AT BEDTIME prazosin 5 mg capsule 5 mg PO .HS Patient Comments: Take 1 (one) Capsule at bedtime to prevent nightmares Changed ferrous sulfate [FeroSul] 325 mg (65 mg iron) tablet 325 mg PO BIDCM Qty: 1 0RF Patient Comments: TAKE 1 TABLET BY MOUTH DAILY Referrals / Follow Up: Javid Graf MD [Primary Care Provider] - In 1 Week Disposition Disposition (needs filled in before D/C Order can be placed): Home, Self Care Charges/Coding Visit Charges Inpatient E&M: 66943 Disch Hosp >30min
[2022-09-10 16:00] VITALS: BP 152/67; PULSE 71; RESP 16; TEMP 36.6; O2SAT 96
== END 2022-09-10 16:13 | disposition home or self-care (01) | DRG 143 ==
LOC: ED 16:54 → PCU 18:03
PROVIDERS: Admitting Provider Internal Medicine; Emergency Provider Emergency Medicine; PCP Family Medicine; Visit Provider Internal Medicine
DX: J98.2 Interstitial emphysema (principal); F25.9 Schizoaffective disorder, unspecified; J15.9 Unspecified bacterial pneumonia; D50.9 Iron deficiency anemia, unspecified; I10 Essential (primary) hypertension; K21.9 Gastro-esophageal reflux disease without esophagitis; B88.8 Other specified infestations; F79 Unspecified intellectual disabilities; Z79.899 Other long term (current) drug therapy; Z87.891 Personal history of nicotine dependence
CPT/HCPCS: 36415; 70450; 71045; 71250; 80048; 80053; 80076; 80178; 81001; 82607; 82728; 83550; 84484; 85025; 85045; 87040; 87426; 87428; 87633; 93005; 97802; 99284; J7050; A4216; J0696; J2916

== ENCOUNTER → 2022-09-23 | Outpatient (CLI) | payer MEDICAID, SELFPAY ==
[2022-09-23 17:20] LABS: Absolute Lymphocyte Count 1.23 X10^3/uL (0.83-4.51); Absolute Neutrophil Count 1.5 X10^3/uL (2.0-7.7); Basophil# 0.04 X10^3/uL; Basophil% 1.1 % (0-1); Eosinophil# 0.46 X10^3/uL; Eosinophils% 12.8 % (0-5); Hematocrit 32.5 % (40-54); Hemoglobin 9.9 g/dL (13.0-16.5); Lymphocyte # 1.23 X10^3/ul (0.83-4.51); Lymphocyte % 34.3 % (19-41); Mean Corp Hgb Conc 30.5 g/dL (32-36); Mean Corpuscular Hgb 30.2 pg (27.0-32.0); Mean Corpuscular Volume 99.1 fL (80-94); Mean Platelet Vol. 9.9 fl (6.2-12.0); Monocyte# 0.31 X10^3/uL; Monocyte% 8.6 % (0-10); NRBC Flagged by Analyzer 0 % (0-5); Neutrophil # 1.53 X10^3/uL (2.7-7.7); Neutrophil % 42.6 % (47-70); POSITIVE MORPHOLOGY YES; Platelet Count 261 K/mm3 (150-450); RBC Distribution Width CV 18.3 % (11.6-14.6); RBC Distribution Width SD 67.8 fl (35.1-43.9); Red Blood Count 3.28 M/mm3 (4.6-6.2); White Blood Count 3.6 K/mm3 (4.4-11.0)
[2022-09-23 17:38] LABS: Differential Indicated SCAN CRITERIA MET
[2022-09-23 17:57] LABS: Differential Comment SCANNED
[2022-09-23 18:02] LABS: Ferritin 139 ng/mL (26-388); PSA,Total - Annual Screen 1.56 ng/mL (0.00-4.00)
== END | disposition home or self-care (01) ==
LOC: MFPLAB 15:01
PROVIDERS: PCP Family Medicine; Visit Provider Family Medicine
DX: D64.9 Anemia, unspecified (principal); D72.10 Eosinophilia, unspecified
CPT/HCPCS: 84153; 36415; 82728; 85025; G0103

== ENCOUNTER → 2022-09-26 | Outpatient (CLI) | payer MEDICAID, SELFPAY | END | disposition home or self-care (01) | PROVIDERS: PCP Family Medicine; Referring Provider Family Medicine; Visit Provider Family Medicine | DX: Z00.00 Encounter for general adult medical examination without abnormal findings (principal) | CPT/HCPCS: 83630; 87177; 87209; 87506 ==

== ENCOUNTER → 2022-12-23 | Outpatient (CLI) | payer MEDICAID, SELFPAY ==
[2022-12-23 17:40] LABS: Absolute Lymphocyte Count 0.77 X10^3/uL (0.83-4.51); Absolute Neutrophil Count 2.9 X10^3/uL (2.0-7.7); Basophil# 0.02 X10^3/uL; Basophil% 0.5 % (0-1); Eosinophil# 0.08 X10^3/uL; Eosinophils% 1.9 % (0-5); Hematocrit 40.6 % (40-54); Hemoglobin 13.4 g/dL (13.0-16.5); Lymphocyte # 0.77 X10^3/ul (0.83-4.51); Lymphocyte % 18.7 % (19-41); Mean Corpuscular Hgb 31.1 pg (27.0-32.0); Mean Corpuscular Volume 94.2 fL (80-94); Mean Platelet Vol. 10.1 fl (6.2-12.0); Monocyte# 0.37 X10^3/uL; NRBC Flagged by Analyzer 0 % (0-5); Neutrophil # 2.86 X10^3/uL (2.7-7.7); Neutrophil % 69.4 % (47-70); Platelet Count 119 K/mm3 (150-450); RBC Distribution Width CV 14.5 % (11.6-14.6); RBC Distribution Width SD 49.8 fl (35.1-43.9); Red Blood Count 4.31 M/mm3 (4.6-6.2); White Blood Count 4.1 K/mm3 (4.4-11.0)
[2022-12-23 18:13] LABS: Valproic Acid (Depakene) Level 106 ug/mL (50-100)
[2022-12-23 18:15] LABS: ALB/GLOB Ratio 0.7 RATIO (0.9-2.4); AST(SGOT) 27 U/L (15-37); Alanine Aminotransfer ALT/SGPT 27 U/L (16-61); Albumin, Serum 3.1 g/dL (3.2-5.0); Alkaline Phosphatase 57 U/L (45-117); Anion Gap 5 (5-15); BUN 19 mg/dL (7-18); BUN/Creat Ratio 16.1 RATIO (10-20); Calcium,Total 8.5 mg/dL (8.5-10.1); Chloride 109 mmol/L (98-107); Creatinine, Serum 1.18 mg/dL (0.70-1.30); EST Glomerular Filtration Rate 65 mL/min (>60); Est Glom Filt Rate - Afr Amer 79 mL/min (>60); Ferritin 114 ng/mL (26-388); Globulin 4.3 g/dL (2.2-4.2); Glucose 104 mg/dL (74-106); Iron 108 ug/dL (65-175); Iron Binding Capacity,Total 318 ug/dL (250-450); Potassium 3.9 mmol/L (3.5-5.1); Protein, Total 7.4 g/dL (6.4-8.2); Sodium Level 142 mmol/L (136-145)
[2022-12-27 12:09] LABS: Lamotrigine (Lamictal) Level 2.7 ug/mL (2.0-20.0)
== END | disposition home or self-care (01) ==
PROVIDERS: PCP Family Medicine; Visit Provider Family Medicine
DX: F20.9 Schizophrenia, unspecified (principal); D64.9 Anemia, unspecified; D72.10 Eosinophilia, unspecified; R19.8 Other specified symptoms and signs involving the digestive system and abdomen; B82.9 Intestinal parasitism, unspecified
CPT/HCPCS: 36415; 80053; 80164; 82542; 82728; 83540; 83550; 85025

== ENCOUNTER → 2022-12-30 | Outpatient (CLI) | payer MEDICAID, SELFPAY | END | disposition home or self-care (01) | LOC: MTLAB 14:42 | PROVIDERS: PCP Family Medicine; Referring Provider Family Medicine; Visit Provider Family Medicine | DX: D64.9 Anemia, unspecified (principal); F20.9 Schizophrenia, unspecified; D72.10 Eosinophilia, unspecified; R19.8 Other specified symptoms and signs involving the digestive system and abdomen | CPT/HCPCS: 87177; 87209 ==

== ENCOUNTER 2023-05-10 14:49 | Outpatient (RCR) | payer MEDICAID, SELFPAY ==
--- NOTE | 2023-05-10 16:25 | HP.PTEVAL_ITS ---
Patient's Visit Information Visit Information Visit Information: JASMINE SILVA is a 68 year old M referred to Physical Therapy by Dr. Javid Graf MD with a diagnosis of LEFT TRIMALLEOLAR FRACTURE ,S/P ORIF. Date of Evaluation: 05/10/23 Physical Therapist: Emmanuel Goeva, PT, Cert MDT, OCS Visit Plan Frequency: 2x /Week Duration: 6 Weeks Plan: S/P ORIF ANKLE IN JAN 2023 PATIENT WBAT WITH CAM BOOT REMOVE CAM BOOT FOR GAIT IN 4 W[address] PER SISTER FROM DR PATIENT IS POOR HISTORIAN AND DIFFICULTY FOLLOWING UNDERSTAND AND DIRECTION PT INTERNETIONS AROM ,STRETCHING CALF ,STRENGTHEING EX'S ANKLE AND PROGRESS WB WITH CAM BOOT PER MD Subjective Subjective: This 68 y/o male presents to physical therapy with right ankle fracture close trimalleolar dislocation on ~ 01/24/23. Patient fell at home slipping on bed. Patient went [facility] . Patient underwent s/o trimalleolar ORIF done by DR Hernadez at [facility]. Patient went to [place] for Rehab for [address] Hernadez 04/03/23 ,x-rays looked good and to return to DR 3 weeks. Patient return to Home March. Initially patient was NWB LLE progressed to WBAT with cane with CAM boot. Patient seen DR Graf who is family DR and recommended. RTD in DR Graf next week. Patient and sister is poor historian. Patient lives in trailer with ramp. Bath/tube shower. Patient sister assist with bathing and dressing . Sister does cooking and cleaning. Patient has limitations with ADLS and function along with gait. Patient has QC and fww . Patient comorbities influences condition with schizophrenia Patient is poor historian unable to don/doff cam boot. Patient has not f/u with DR Hernadez is to from last note during Rehab at [place] SOCAIL: single lives with sister Pain Right Ankle: Pain Intensity (Out of 10): Unrated Pain Intensity Range: Unrated Objective Objective: POSTURE: ( frontal plane mechanics) mild pes planus ,calcaneal valgus PALPATION: unremarkable GAIT: ambulate with cane and CAM boot QC increase speed NEURO: denies paresthesia/tingling AROM: dorsiflexion -10 degrees ,plantar flexion 60 degrees ,inversion 30 degrees ,eversion 0 degrees MMT: (peak force) plantar flexion 15.8 ,anterior tibialis 12.2,peroneus 10.2 ,posterior tibialis 12.2 ( * difficulty following commands and understand direction ,sister present*) Balance/Special Test Scores Lower Extremity Functional Score: 17 Goals Goal 1:: Patient to be I with HEP with sister assist Goal Time Frame: 6-8 Weeks Goal 2:: Patient to ambulate improved gait with shoe with normal iza Goal Time Frame: 6-8 Weeks Goal 3:: Patient to improve AROM ankle by 5 10 degrees to improve gait Goal Time Frame: 6-8 Weeks Goal 4:: Patient to improve peak force by 5-10 # to improve gait and function Goal Time Frame: 4-6 Weeks Goal 5:: Patient to LFES score by 5-10 points to improve gait and QOL Goal Time Frame: 4-6 Weeks Goal 6:: Patient to demonstrate 40-50% improvement with increase function and gait Goal Time Frame: 6-8 Weeks Rehabilitation Potential Physical Therapy Diagnosis: Patient underwent s/p ORIF ankle left in DEC with decrease ROM ,weakness ,poor proprioception impairs gait and function along with comorbities influences condition thus benefit from skilled PT Rehabilitation Potential: Fair Anticipated Interventions Patient/Client Instruction: Educate patient on: Condition and Plan of Care For the Purpose of:: To decrease pain, To increase ROM, To improve muscle performance and motor function, To improve ability to perform ADL's, To increase tolerance to activity/condition/position, To improve ability of physical actions for home/community/work/leisure, To improve gait and locomotor functions, To improve health of tissue, To decrease soft tissue restriction and To increase flexibility/ROM Therapeutic Exercise to Include: Strength training, Endurance training, Balance training, Flexibilty training, Gait and locomotor training, Passive ROM and Active ROM For the Purpose of:: To decrease pain, To increase ROM, To improve muscle performance and motor function, To improve ability to perform ADL's, To increase tolerance to activity/condition/position, To improve ability of physical actions for home/community/work/leisure, To improve gait and locomotor functions, To improve health of tissue, To decrease soft tissue restriction, To increase flexibility/ROM and To improve tolerance to ADL's Text: Thank you for the opportunity to evaluate your patient. For Medicare and Medicare HMO plans, please review the plan of care and approve it. It will need to be FAXED BACK to us at [phone] for Medicare purposes. For Medicare only, by signing this I certify the plan of care. Please let me know if there are questions or concerns regarding this plan of care. Physician Signature: Date:
--- NOTE | 2023-06-14 10:40 | HP.PT.NRP ---
Patient Information Patient Information: JASMINE SILVA was seen in my office for initial evaluation on 05/10/23. The following Plan of Care was established for this patient: POC Established Initial Frequency: 2x /Week Initial Duration: 6 Weeks Anticipated Interventions Patient/Client Instruction: Educate patient on: Condition and Plan of Care For the Purpose of:: To decrease pain, To increase ROM, To improve muscle performance and motor function, To improve ability to perform ADL's, To increase tolerance to activity/condition/position, To improve ability of physical actions for home/community/work/leisure, To improve gait and locomotor functions, To improve health of tissue, To decrease soft tissue restriction and To increase flexibility/ROM Therapeutic Exercise to Include: Strength training, Endurance training, Balance training, Flexibilty training, Gait and locomotor training, Passive ROM and Active ROM For the Purpose of:: To decrease pain, To increase ROM, To improve muscle performance and motor function, To improve ability to perform ADL's, To increase tolerance to activity/condition/position, To improve ability of physical actions for home/community/work/leisure, To improve gait and locomotor functions, To improve health of tissue, To decrease soft tissue restriction, To increase flexibility/ROM and To improve tolerance to ADL's Last Seen Last Seen: This patient was last seen in our office . Pertinent comments regarding their Physical therapy will appear below: Patient seen for PT bhumi and HEP thus d/c At this point I will be discontinuing this patient from physical therapy. I would be happy to see this patient again in the future if found appropriate by the physician. Thank you! Emmanuel Govea, PT, Cert MDT, OCS Balance/Gait/Functional tests Balance/Special Test Scores Lower Extremity Functional Score: 17
== END 2023-05-10 19:00 | disposition home or self-care (01) ==
LOC: PT 14:49
PROVIDERS: PCP Family Medicine; Referring Provider Family Medicine; Visit Provider Family Medicine
DX: Z98.890 Other specified postprocedural states (principal); S82.852D Displaced trimalleolar fracture of left lower leg, subsequent encounter for closed fracture with routine healing
CPT/HCPCS: 97110; 97162

== ENCOUNTER → 2023-10-10 | Outpatient (CLI) | payer MEDICAID, SELFPAY ==
[2023-10-10 17:35] LABS: Absolute Lymphocyte Count 1.46 X10^3/uL (0.83-4.51); Absolute Neutrophil Count 2.6 X10^3/uL (2.0-7.7); Basophil# 0.01 X10^3/uL; Basophil% 0.2 % (0-1); Eosinophil# 0.46 X10^3/uL; Eosinophils% 9.2 % (0-5); Hematocrit 39.1 % (40-54); Hemoglobin 12.9 g/dL (13.0-16.5); Lymphocyte # 1.46 X10^3/ul (0.83-4.51); Lymphocyte % 29.2 % (19-41); Mean Corpuscular Hgb 31.8 pg (27.0-32.0); Mean Corpuscular Volume 96.3 fL (80-94); Mean Platelet Vol. 10.2 fl (6.2-12.0); Monocyte# 0.47 X10^3/uL; Monocyte% 9.4 % (0-10); NRBC Flagged by Analyzer 0 % (0-5); Neutrophil # 2.59 X10^3/uL (2.7-7.7); Neutrophil % 51.8 % (47-70); Platelet Count 165 K/mm3 (150-450); RBC Distribution Width CV 13.7 % (11.6-14.6); RBC Distribution Width SD 48.8 fl (35.1-43.9); Red Blood Count 4.06 M/mm3 (4.6-6.2)
[2023-10-10 18:22] LABS: Vitamin D,25 Hydroxy 67.4 ng/mL
[2023-10-10 18:36] LABS: ALB/GLOB Ratio 0.8 RATIO (0.9-2.4); AST(SGOT) 26 U/L (15-37); Alanine Aminotransfer ALT/SGPT < 6 U/L (16-61); Albumin, Serum 3.1 g/dL (3.2-5.0); Alkaline Phosphatase 62 U/L (45-117); Anion Gap 4 (5-15); BUN 14 mg/dL (7-18); BUN/Creat Ratio 12.7 RATIO (10-20); Calcium,Total 8.8 mg/dL (8.5-10.1); Chloride 105 mmol/L (98-107); Cholesterol 115 mg/dL (200); EST Glomerular Filtration Rate 70 mL/min (>60); Est Glom Filt Rate - Afr Amer 85 mL/min (>60); Ferritin 119 ng/mL (26-388); Globulin 3.8 g/dL (2.2-4.2); Glucose 88 mg/dL (74-106); High Density Lipoprotein 64 mg/dL; Iron 92 ug/dL (65-175); Iron Binding Capacity,Total 275 ug/dL (250-450); PERCENT IRON SATURATION 33.5 % (15.0-55.0); Potassium 3.9 mmol/L (3.5-5.1); Protein, Total 6.9 g/dL (6.4-8.2); Sodium Level 139 mmol/L (136-145); Thyroid Stim Hormone (TSH) 0.903 uIU/mL (0.358-3.740); Triglycerides 43 mg/dL; Very Low Density Lipoprotein 9 mg/dL (5-40)
[2023-10-11 14:36] LABS: Vitamin B12 717 pg/mL (211-911)
== END | disposition home or self-care (01) ==
LOC: MTLAB 15:43
PROVIDERS: PCP Family Medicine; Referring Provider Family Medicine; Visit Provider Family Medicine
DX: D64.9 Anemia, unspecified (principal); F20.9 Schizophrenia, unspecified
CPT/HCPCS: 36415; 80053; 80061; 82306; 82607; 82728; 82746; 83540; 83550; 84443; 85025

== ENCOUNTER 2024-11-01 21:08 | Emergency (ER) | payer MEDICAID, SELFPAY ==
[2024-11-01 21:08] VITALS: BP 152/87; PULSE 77; RESP 18; TEMP 36.6; O2SAT 99; BMI 27.1
--- NOTE | 2024-11-01 21:17 | EKG12_ITS ---
Test Reason : [facility] [place] Blood Pressure : */* mmHG Vent. Rate : 63 BPM Atrial Rate : 63 BPM P-R Int : 144 ms QRS Dur : 74 ms QT Int : 406 ms P-R-T Axes : 55 55 69 degrees QTcB Int : 415 ms Normal sinus rhythm can not rule out Septal infarct (cited on or before 04-Dec-2020) Abnormal ECG Confirmed by Josemanuel Todd ([id number]), order editor ARMINDA VILLANUEVA ([id number]) on 11/04/2024 1:12:32 PM Referred By: Confirmed By: Josemanuel Todd
--- NOTE | 2024-11-01 21:22 | ED.RN ---
Per Roland REYES numerous bugs in home. Unsure if bed bugs were noted. Pt escorted to decon room per precaution. No bed bugs noted by this nurse during triage.
--- NOTE | 2024-11-01 21:28 | ED.RN ---
Per pt states he does not take any meds, they will kill me.
[2024-11-01 21:54] VITALS: BP 153/83; PULSE 83; RESP 22; O2SAT 100
[2024-11-01 22:06] LABS: Hematocrit 39.7 % (40-54); Hemoglobin 13.5 g/dL (13.0-16.5); Immature Granulocytes Count 0.020 X10^3/uL (0.0-0.0); Mean Corp Hgb Conc 34.0 g/dL (32-36); Mean Corpuscular Volume 91.5 fL (80-94); Mean Platelet Vol. 9.1 fl (6.2-12.0); NRBC Flagged by Analyzer 0 % (0-5); Platelet Count 320 K/mm3 (150-450); RBC Distribution Width CV 13.7 % (11.6-14.6); RBC Distribution Width SD 46.5 fl (35.1-43.9); Red Blood Count 4.34 M/mm3 (4.6-6.2); White Blood Count 7.5 K/mm3 (4.4-11.0)
--- NOTE | 2024-11-01 22:07 | CM.ED ---
Social work SW recognized patient had legal guardianship papers naming patient's sister, Loraine Albarran, as patient's guardian. Per patient's contacts, Loraine was not listed. SW spoke with Gray from Crisis who had patient's brother in law, Tha's number (ph: [phone]). Gray and PERICO called Tha together who confirmed Loraine was patient's legal guardian and [facility]'s records were correct. Per Tha, Loraine is hearing impaired and people need to call Tha if trying to reach Loraine. cooking chef Lily and SW called Tha together to gain consent to treat and Loraine clearly said yes to treatment and transfer to a psychiatric facility. No further needs identified for this SW at this time. Plan: patient has a pink slip written by Roland REYES and Crisis plans to pursue placement at an inpatient psychiatric facility. Mylene Amaral, BLAST FURNACE TENDER, RUBBER MILL OPERATOR
--- OUTSIDE RECORDS SUMMARY | 2024-11-01 22:15 | XMS RPT_ITS | CCD ---
Author Organization [facility] Care Team Providers Care Mechanical Piping Designer Name Role Phone Jeovany Graf MD Primary Care Provider [phone] Graf, Jeovany Primary Care Unavailable Graf, Jeovany Attending Unavailable Graf, Jeovany Referring Unavailable Graf, Jeovany Attending Unavailable Graf, Jeovany Referring Unavailable Graf, Jeovany Primary Care Unavailable Graf, Jeovany Attending Unavailable Graf, Jeovany Primary Care Unavailable Graf, Jeovany Primary Care Unavailable Ezio Araujo Attending Unavailable Graf, Jeovany Primary Care Unavailable Sukh Keys Attending Unavailable Graf, Jeovany Primary Care Unavailable Caleb Castillo Attending Unavailable Graf, Jeovany Referring Unavailable Graf, Jeovany Attending Unavailable Graf, Jeovany Referring Unavailable Graf, Jeovany Primary Care Unavailable Graf, Jeovany Primary Care Unavailable Graf, Jeovany Attending Unavailable PIYUSH MONSON~[id number], PIYUSH Montalvoin josh Unavailable PIYUSH MONSON~[id number], PIYUSH Weaver Attendin g Unavailable GRAF, JEOVANY Primary Care Unavailable PIYUSH MONSON~[id number], PIYUSH Cabreraittin g Unavailable PIYUSH MONSON~[id number], PIYUSH Weaver Attendin g Unavailable AA NO PCP, NO PCP Primary Care Unavailable PIYUSH MONSON~[id number], PIYUSH Cabreraittin g Unavailable PIYUSH MONSON~[id number], PIYUSH Weaver Attendin g Unavailable KIKA TEE DO Consulting Unavailabl e GRAF, JEOVANY Primary Care Unavailable KIKA TEE DO Consulting Unavailabl e MONZON DO, HASEEB Consulting Unavailable JANNET PICKETT MD Procedure Practitioner Unav ailable MONZON DO, HASEEB Consulting Unavailable PEDRO SEO ASSISTANT, TACHO Consulting Unavailabl e PEDRO SEO ASSISTANT, TACHO Consulting Unavailabl e Medications Current Medications Medication Drug Class(es) Dates Sig (Normalized) Sig (Original) cariprazine 4.5 mg oral capsule (1 source) Atypical Antipsychotic Start: 12-03-2020 take 1 capsule by mouth once daily Cariprazine (Vraylar) 4.5 mg capsule Active 4.5 MG PO DAILY December 03, 2020 12:00am doxepin hydrochloride 50 mg oral capsule (1 source) Tricyclic Antidepressant Start: 12-03-2020 take 50 mg by mouth at bedtime Doxepin Active 50 MG PO AT BEDTIME December 03, 2020 12:00am guanFACINE 1 mg oral tablet (1 source) Central alpha-2 Adrenergic Agonist Start: 12-03-2020 Guanfacine Active MG December 03, 2020 12:00am lithium carbonate 300 mg extended release oral tablet (1 source) Start: 12-03-2020 take 300 mg by mouth twice daily Imlay Carbonate Active 300 MG PO TWICE A DAY December 03, 2020 12:00am melatonin 5 mg / vitamin b6 1 mg oral tablet (1 source) Start: 08-11-2017 take 1 tablet by mouth twice daily Melatonin-Pyridox ine (Vit B6) (Melatonin 5 Mg Tablet) 1 EACH tablet Active 1 EACH PO TWICE A DAY August 11, 2017 12:00am Completed/Discontinued Medications Medication Drug Class(es) Dates Sig (Normalized) Sig (Original) ascorbic acid 1000 mg oral tablet (1 source) Vitamin C Start: 09-23-2022 take 1 tablet by mouth once Ascorbic Acid 1,000 mg tablet Take 1 tablet by mouth every afternoon. 0 09/23/2022 Active Comment on above: Take 1 tablet by nick th every afternoon. 60 actuat budesonide 0.16 mg/actuat / formoterol fumarate 0.0045 mg/actuat metered dose inhaler (1 source) Corticosteroid, beta2-Adrenergic Agonist Start: 11-21-2022 take 2 puff(s) by inhalation twice daily SYMBICORT 160-4.5 mcg/actuation inhaler Inhale 2 Puffs as instructed two times a day. 0 11/21/2022 Active Comment on above: Inhale 2 Puffs as in structed two times a day. ferrous sulfate 325 mg oral tablet (1 source) Start: 11-18-2022 take 1 tablet by mouth once FEROSUL 325 mg (65 mg iron) tablet Take 1 tablet by mouth every afternoon. 0 11/18/2022 Active Comment on above: Take 1 tablet by nick th every afternoon. lamoTRIgine 25 mg oral tablet (1 source) Mood Stabilizer, Anti-epileptic Agent Start: 11-18-2022 take 1 tablet by mouth every twelve hours lamoTRIgine (LAMICTAL) 25 mg tablet Take 1 tablet by mouth every 12 hours. 0 11/18/2022 Active Comment on above: Take 1 tablet by nick th every 12 hours. OLANZapine 10 mg oral tablet (1 source) Atypical Antipsychotic Start: 12-13-2022 take 2 tablets by mouth once daily at bedtime OLANZapine (ZYPREXA) 10 mg tablet Take 20 mg by mouth daily at bedtime. 0 12/13/2022 Active Comment on above: Take 20 mg by mouth daily at bedtime. pantoprazole 40 mg delayed release oral tablet (1 source) Proton Pump Inhibitor Start: 01-16-2023 take 1 tablet by mouth once pantoprazole DR (PROTONIX) 40 mg tablet Take 1 tablet by mouth every afternoon. 0 01/16/2023 Active Comment on above: Take 1 tablet by nick th every afternoon. prazosin 5 mg oral capsule (1 source) alpha-Adrenergic Scooter Start: 11-04-2022 take 1 capsule by mouth once daily prazosin (MINIPRESS) 5 mg cap Take 5 mg by mouth once daily. 0 11/04/2022 Active Comment on above: Take 5 mg by mouth o nce daily. divalproex sodium 250 mg delayed release oral tablet (1 source) Mood Stabilizer, Anti-epileptic Agent Start: 11-04-[address] (DEPAKOTE) 250 mg EC tablet Take 25 mg by mouth once daily. 0 11/04/2022 Active Comment on above: Take 25 mg by mouth once daily. Problems Active Problems Problem Classification Problem Date Documented Date Episodic/Chronic Deficiency and other anemia (1 source) Anemia, unspecified; Translations: [Anemia, unspecified] Onset: 10-31-2023 Episodic Disorders of teeth and jaw (1 source) Complete loss of teeth due to other specified cause, unspecified class; Translations: [CMPL LOSS TEETH OTH CAUSE UNS CLASS] Onset: 04-25-2023 Chronic Esophageal disorders (2 sources) Gastroesophageal reflux disease; Translations: [Gastro-esophageal reflux disease without esophagitis] Onset: 04-25-2023 03-05-2013 Chronic Hyperplasia of prostate (1 source) Benign prostatic hyperplasia without lower urinary tract symptoms; Translations: [BENIGN PROSTATIC HYPRPLASIA WO LUTS] Onset: 04-25-2023 Chronic Other infections; including parasitic (1 source) Post-viral disorder; Translations: [[id number] condition] 08-28-2020 Chronic Schizophrenia and other psychotic disorders (3 sources) Schizophrenia, unspecified; Translations: [Paranoid schizophrenia] Onset: 12-13-2022 Chronic Viral infection (1 source) Disease caused by 2019-nCoV; Translations: [COVID-19] 08-05-2020 Episodic Past or Other Problems Problem Classification Problem Date Documented Date Episodic/Chronic Abdominal pain (1 source) Epigastric pain; Translations: [Epigastric pain] Onset: 05-03-2023 Episodic Deficiency and other anemia (1 source) Nutritional anemia, unspecified; Translations: [NUTRITIONAL ANEMIA UNSPECIFIED] Onset: 04-25-2023 Episodic E Codes: Fall (1 source) Fall on same level from slipping, tripping and stumbling without subsequent striking against object, subsequent encounter; Translations: [FALL SAME LVL SLIP NO STRIK OBJ SUB] Onset: 04-25-2023 Episodic Fracture of lower limb (4 sources) Displaced trimalleolar fracture of left lower leg, initial encounter for closed fracture; Translations: [Other fracture of left lower leg, initial encounter for closed fracture] Onset: 01-24-2023 Episodic Other aftercare (1 source) Other correction (current) drug therapy; Translations: [OTH DETENTION CURRENT DRUG THERAPY] Onset: 04-25-2023 Episodic Other nervous system disorders (1 source) Apraxia; Translations: [APRAXIA] Onset: 04-25-2023 Episodic Other non-traumatic joint disorders (4 sources) Pain in left ankle and joints of left foot; Translations: [Pain in left ankle and joints of left foot] Onset: 01-24-2023 Episodic Residual codes; unclassified (1 source) Other specified postprocedural states; Translations: [OTH SPECIFIED POSTPROCEDURAL STATES] Onset: 04-04-2023 Episodic Screening and history of mental health and substance abuse codes (1 source) Personal history of nicotine dependence; Translations: [PERSONAL HISTORY OF NICOTINE DEPEND] Onset: 04-25-2023 Episodic Sprains and strains (1 source) Sprain of tibiofibular ligament of left ankle, subsequent encounter; Translations: [SPRAIN TIBIOFIBULAR LIG LT ANK SUB] Onset: 04-25-2023 Episodic Results Test Name Value Interpretation Reference Range Facility Vitamin B12on 10-11-2023 Cobalamin (Vitamin B12) [Mass/Vol] 717 pg/mL Normal 211-911 [facility] Comment on above: Performed By: #### L 501.9520, L506.1000, L503.6030, L506.0250, L503.6550, L500.4100, L503.0105 ####[facility] [address] [place], [address] CBC W/Diff, Automatedon 09-21 Absolute Lymph 1.46 X10 3/uL Normal 0.83-4.51 [facility] Comment on above: Order Comment: Order Date: 10/05/22Order Info: 0184-1 - CBCD Performed By: #### L 100.0100, L500.4050 ####[facility] [address] [place], [address] Absolute Neut 2.6 X10 3/uL Normal 2.0-7.7 [facility] Comment on above: Order Comment: Order Date: 10/05/22Order Info: 0184-1 - CBCD Performed By: #### L 100.0100, L500.4050 ####[facility] [address] [place], [address] Basophils/100 WBC (Bld) 0.2 % Normal 0-1 [facility] Comment on above: Order Comment: Order Date: 10/05/22Order Info: 0184-1 - CBCD Performed By: #### L 100.0100, L500.4050 ####[facility] [address] [place], [address] Eosinophils/100 WBC (Bld) 9.2 % High 0-5 [facility] Comment on above: Order Comment: Order Date: 10/05/22Order Info: 0184-1 - CBCD Performed By: #### L 100.0100, L500.4050 ####[facility] [address] [place], [address] Erythrocyte distribution width (RBC) [Ratio] 13.7 % Normal 11.6-14.6 [facility] Comment on above: Order Comment: Order Date: 10/05/22Order Info: 0184-1 - CBCD Performed By: #### L 100.0100, L500.4050 ####[facility] [address] [place], [address] Hematocrit (Bld) [Volume fraction] 39.1 % Low 40-54 [facility] Comment on above: Order Comment: Order Date: 10/05/22Order Info: 0184-1 - CBCD Performed By: #### L 100.0100, L500.4050 ####[facility] [address] [place], [address] Hemoglobin (Bld) [Mass/Vol] 12.9 g/dL Low 13.0-16.5 [facility] Comment on above: Order Comment: Order Date: 10/05/22Order Info: 0184-1 - CBCD Performed By: #### L 100.0100, L500.4050 ####[facility] [address] [place], [address] IG% 0.200 Normal 0.0-0.9 [facility] Comment on above: Order Comment: Order Date: 10/05/22Order Info: 0184-1 - CBCD Result Comment: IG% - Immature Granulocytes (promyelocytes, myelocytes and metamyelocytes) > 1% indicates that a LEFT SHIFT is Present. Performed By: #### L 100.0100, L500.4050 ####[facility] [address] [place], [address] Lymphocytes/100 WBC (Bld) 29.2 % Normal 19-41 [facility] Comment on above: Order Comment: Order Date: 10/05/22Order Info: 4-1 - CBCD Performed By: #### L 100.0100, L500.4050 ####[facility] [address] [place], [address] MCH (RBC) [Entitic mass] 31.8 pg Normal 27.0-32.0 [facility] Comment on above: Order Comment: Order Date: 10/05/22Order Info: 018-1 - CBCD Performed By: #### L 100.0100, L500.4050 ####[facility] [address] [place], [address] MCHC (RBC) [Mass/Vol] 33.0 g/dL Normal 32-36 [facility] Comment on above: Order Comment: Order Date: 10/05/22Order Info: 018- - CBCD Performed By: #### L 100.0100, L500.4050 ####[facility] [address] [place], [address] MCV (RBC) [Entitic vol] 96.3 fL High 80-94 [facility] Comment on above: Order Comment: Order Date: 10/05/22Order Info: 0184-1 - CBCD Performed By: #### L 100.0100, L500.4050 ####[facility] [address] [place], [address] Monocytes/100 WBC (Bld) 9.4 % Normal 0-10 [facility] Comment on above: Order Comment: Order Date: 10/05/22Order Info: 0184-1 - CBCD Performed By: #### L 100.0100, L500.4050 ####[facility] [address] [place], [address] Neutrophils/100 WBC (Bld) 51.8 % Normal 47-70 [facility] Comment on above: Order Comment: Order Date: 10/05/22Order Info: 0184-1 - CBCD Performed By: #### L 100.0100, L500.4050 ####[facility] [address] [place], [address] Nucleated RBC (Bld) [#/Vol] 0 10*3/uL Normal 0-5 [facility] Comment on above: Order Comment: Order Date: 10/05/22Order Info: 0184-1 - CBCD Performed By: #### L 100.0100, L500.4050 ####[facility] [address] [place], [address] Platelet mean volume (Bld) [Entitic vol] 10.2 fL Normal 6.2-12.0 [facility] Comment on above: Order Comment: Order Date: 10/05/22Order Info: 0184-1 - CBCD Performed By: #### L 100.0100, L500.4050 ####[facility] [address] [place], [address] Platelets (Bld) [#/Vol] 165 10*3/uL Normal 150-450 [facility] Comment on above: Order Comment: Order Date: 10/05/22Order Info: 0184-1 - CBCD Performed By: #### L 100.0100, L500.4050 ####[facility] [address] [place], [address] RBC (Bld) [#/Vol] 4.06 10*6/uL Low 4.6-6.2 [facility] Comment on above: Order Comment: Order Date: 10/05/22Order Info: 0184-1 - CBCD Performed By: #### L 100.0100, L500.4050 ####[facility] [address] [place], [address] RDW SD 48.8 fl High 35.1-43.9 [facility] Comment on above: Order Comment: Order Date: 10/05/22Order Info: 0184-1 - CBCD Performed By: #### L 100.0100, L500.4050 ####[facility] [address] [place], [address] WBC (Bld) [#/Vol] 5.0 10*3/uL Normal 4.4-11.0 [facility] Comment on above: Order Comment: Order Date: 10/05/22Order Info: 0184-1 - CBCD Performed By: #### L 100.0100, L500.4050 ####[facility] [address] [place], [address] Comprehensive Metabolic Prof ilon 10-10-2023 Albumin [Mass/Vol] 3.1 g/dL Low 3.2-5.0 [facility] Comment on above: Order Comment: Order Date: 10/05/22Order Info: 0786-1 - CMPN Performed By: #### L 100.0100, L500.4050 ####[facility] [address] [place], [address] Albumin/Globulin [Mass ratio] 0.8 {ratio} Low 0.9-2.4 [facility] Comment on above: Order Comment: Order Date: 10/05/22Order Info: 0786-1 - CMPN Performed By: #### L 100.0100, L500.4050 ####[facility] [address] [place], [address] ALK P 62 U/L Normal 45-117 [facility] Comment on above: Order Comment: Order Date: 10/05/22Order Info: 0786-1 - CMPN Performed By: #### L 100.0100, L500.4050 ####[facility] [address] [place], [address] ALT [Catalytic activity/Vol] U/L Low 16-61 [facility] Comment on above: Order Comment: Order Date: 10/05/22Order Info: 0786-1 - CMPN Performed By: #### L 100.0100, L500.4050 ####[facility] [address] [place], [address] AST [Catalytic activity/Vol] 26 U/L Normal 15-37 [facility] Comment on above: Order Comment: Order Date: 10/05/22Order Info: 0786-1 - CMPN Performed By: #### L 100.0100, L500.4050 ####[facility] [address] [place], [address] Bilirubin [Mass/Vol] 0.50 mg/dL Normal 0.20-1.00 [facility] Comment on above: Order Comment: Order Date: 10/05/22Order Info: 0786-1 - CMPN Result Comment: For patients on eltrombopag therapy, use of Dimension Barton TBIL is not recommended. Performed By: #### L 100.0100, L500.4050 ####[facility] [address] [place], [address] BUN/CRE 12.7 RATIO Normal 10-20 [facility] Comment on above: Order Comment: Order Date: 10/05/22Order Info: 0786-1 - CMPN Performed By: #### L 100.0100, L500.4050 ####[facility] [address] [place], [address] CA,Total 8.8 mg/dL Normal 8.5-10.1 [facility] Comment on above: Order Comment: Order Date: 10/05/22Order Info: 0786-1 - CMPN Performed By: #### L 100.0100, L500.4050 ####[facility] [address] [place], [address] Chloride [Moles/Vol] 105 mmol/L Normal 98-107 [facility] Comment on above: Order Comment: Order Date: 10/05/22Order Info: 0786-1 - CMPN Performed By: #### L 100.0100, L500.4050 ####[facility] [address] [place], [address] CO2 [Moles/Vol] 30.0 mmol/L Normal 21.0-32.0 [facility] Comment on above: Order Comment: Order Date: 10/05/22Order Info: 0786-1 - CMPN Performed By: #### L 100.0100, L500.4050 ####[facility] [address] [place], [address] Creatinine [Mass/Vol] 1.10 mg/dL Normal 0.70-1.30 [facility] Comment on above: Order Comment: Order Date: 10/05/22Order Info: 0786-1 - CMPN Result Comment: The validity of the calculated GFR GFRAA in patients over 70 years has not been determined. Clinical correlation is essential. Performed By: #### L 100.0100, L500.4050 ####[facility] [address] [place], [address] EST GFR - AA 85 mL/min Normal >60 [facility] Comment on above: Order Comment: Order Date: 10/05/22Order Info: 0786-1 - CMPN Result Comment: Afri can [place] GFR Calc Performed By: #### L 100.0100, L500.4050 ####[facility] [address] [place], [address] GAP 4 Low 5-15 [facility] Comment on above: Order Comment: Order Date: 10/05/22Order Info: 0786-1 - CMPN Performed By: #### L 100.0100, L500.4050 ####[facility] [address] [place], [address] GFR/1.73 sq M.predicted among non-blacks MDRD (S/P/Bld) [Vol rate/Area] 70 mL/min/{1.73_m2} Normal >60 [facility] Comment on above: Order Comment: Order Date: 10/05/22Order Info: 0786-1 - CMPN Result Comment: Non- GFR Calc Performed By: #### L 100.0100, L500.4050 ####[facility] [address] [place], [address] Globulin (S) [Mass/Vol] 3.8 g/dL Normal 2.2-4.2 [facility] Comment on above: Order Comment: Order Date: 10/05/22Order Info: 0786-1 - CMPN Performed By: #### L 100.0100, L500.4050 ####[facility] [address] [place], [address] Glucose [Mass/Vol] 88 mg/dL Normal 74-106 [facility] Comment on above: Order Comment: Order Date: 10/05/22Order Info: 0786-1 - CMPN Performed By: #### L 100.0100, L500.4050 ####[facility] [address] [place], [address] Potassium [Moles/Vol] 3.9 mmol/L Normal 3.5-5.1 [facility] Comment on above: Order Comment: Order Date: 10/05/22Order Info: 0786-1 - CMPN Performed By: #### L 100.0100, L500.4050 ####[facility] [address] [place], [address] Sodium [Moles/Vol] 139 mmol/L Normal 136-145 [facility] Comment on above: Order Comment: Order Date: 10/05/22Order Info: 0786-1 - CMPN Performed By: #### L 100.0100, L500.4050 ####[facility] [address] [place], [address] T PROT 6.9 g/dL Normal 6.4-8.2 [facility] Comment on above: Order Comment: Order Date: 10/05/22Order Info: 0786-1 - CMPN Performed By: #### L 100.0100, L500.4050 ####[facility] [address] [place], [address] Urea nitrogen [Mass/Vol] 14 mg/dL Normal 7-18 [facility] Comment on above: Order Comment: Order Date: 10/05/22Order Info: 0786-1 - CMPN Performed By: #### L 100.0100, L500.4050 ####[facility] [address] [place], [address] Ferritinon 10-10-2023 Ferritin [Mass/Vol] 119 ng/mL Normal 26-388 [facility] Comment on above: Order Comment: Order Date: 10/05/22 Order Info: 0786-1 - CMP N Performed By: #### L 501.9520, L506.1000, L503.6030, L506.0250, L503.6550, L500.4100, L503.0105 #### [facility] [address] [place], [address] Folates, (Folic Acid)on 09-21 FOLATES 7.90 ng/mL Normal 3.1-55.4 [facility] Comment on above: Order Comment: Order Date: 10/05/22Order Info: 0786-1 - CMPN Performed By: #### L 501.9520, L506.1000, L503.6030, L506.0250, L503.6550, L500.4100, L503.0105 ####[facility] [address] [place], [address] Iron+Iron Binding Capacityon 10-10-2023 Iron [Mass/Vol] 92 ug/dL Normal 65-175 [facility] Comment on above: Order Comment: Order Date: 10/05/22 Order Info: 0786-1 - CMP N Performed By: #### L 501.9520, L506.1000, L503.6030, L506.0250, L503.6550, L500.4100, L503.0105 #### [facility] [address] [place], [address] IRON SATURATION 33.5 Normal 15.0-55.0 [facility] Comment on above: Order Comment: Order Date: 10/05/22 Order Info: 0786-1 - CMP N Performed By: #### L 501.9520, L506.1000, L503.6030, L506.0250, L503.6550, L500.4100, L503.0105 #### [facility] [address] [place], [address] TIBC 275 ug/dL Normal 250-450 [facility] Comment on above: Order Comment: Order Date: 10/05/22 Order Info: 0786-1 - CMP N Performed By: #### L 501.9520, L506.1000, L503.6030, L506.0250, L503.6550, L500.4100, L503.0105 #### [facility] [address] [place], [address] Lipid Profileon 10-10-2023 Cholesterol [Mass/Vol] 115 mg/dL Normal 200 [facility] Comment on above: Order Comment: Order Date: 10/05/22 Order Info: 0786-1 - CMP N Result Comment: <200 mg/dL Desirable 200-240 mg/dL Borderline >240 mg/dL High Risk Performed By: #### L 501.9520, L506.1000, L503.6030, L506.0250, L503.6550, L500.4100, L503.0105 #### [facility] [address] [place], [address] Cholesterol in HDL [Mass/Vol] 64 mg/dL Normal [facility] Comment on above: Order Comment: Order Date: 10/05/22 Order Info: 0786-1 - CMP N Result Comment: The drugs N-Acetylcysteine and Metamizole may falsely depress this assay. Reference Range HDL <40 mg/dL Low HDL Cholesterol HDL >or= 60 mg/dL High HDL Cholesterol Performed By: #### L 501.9520, L506.1000, L503.6030, L506.0250, L503.6550, L500.4100, L503.0105 #### [facility] [address] [place], [address] Cholesterol in LDL [Mass/Vol] 42 mg/dL Normal 0-130 [facility] Comment on above: Order Comment: Order Date: 10/05/22 Order Info: 0786-1 - CMP N Performed By: #### L 501.9520, L506.1000, L503.6030, L506.0250, L503.6550, L500.4100, L503.0105 #### [facility] [address] [facility], [address] Cholesterol in VLDL [Mass/Vol] 9 mg/dL Normal 5-40 [facility] Comment on above: Order Comment: Order Date: 10/05/22 Order Info: 0786-1 - CMP N Performed By: #### L 501.9520, L506.1000, L503.6030, L506.0250, L503.6550, L500.4100, L503.0105 #### [facility] [address] [facility] [place], [address] Triglyceride [Mass/Vol] 43 mg/dL Normal W [facility] Comment on above: Order Comment: Order Date: 10/05/22 Order Info: 0786-1 - CMP N Result Comment: The drugs N-Acetylcysteine and Metamizole may falsely depress this assay. Serum Triglycerides Reference Interval Normal <150 mg/dL Borderline high 150 - 199 mg/dL High 200 - 499 mg/dL Very High > or = 500 mg/dL Performed By: #### L 501.9520, L506.1000, L503.6030, L506.0250, L503.6550, L500.4100, L503.0105 #### [facility] [address] [place], [place], [id number] Thyroid Stim Hormone (TSH)on 10-10-2023 TSH 0.903 uIU/mL Normal 0.358-3.740 [facility] Comment on above: Order Comment: Order Date: 10/05/22 Order Info: 0786-1 - CMP N Performed By: #### L 501.9520, L506.1000, L503.6030, L506.0250, L503.6550, L500.4100, L503.0105 #### [facility] [address] [place], [id number] Vitamin D,25 Hydroxyon 10-09 Vitamin D 25-OH 67.4 ng/mL Normal [facility] Comment on above: Result Comment: Soraya min D 25(OH) Status Range Deficiency <20 ng/mL (50nmol/L) Insufficiency 20 - 30 ng/mL (50 - 75 nmol/L) Sufficiency 30 - 100 ng/mL (75 - 250 nmol/L) Toxicity >100 ng/mL (>250 nmol/L) Performed By: #### L 501.9520, L506.1000, L503.6030, L506.0250, L503.6550, L500.4100, L503.0105 #### [facility] [address] [place], [place], [id number] Inital Evaluation (1) - PTon 05-10-2023 Inital Evaluation (1) - PT [facility] [address] [place] [address] / REHABILITATION SERVICES INITIAL EVALUATION MR#: [id number] Acct: [id number] Name: JASMINE SILVA Rep #: [id number] : 1955 68 From: Emmanuel Govea PT, Cert. T, OCS Referring Dr.: Dr. Jeovany Graf MD Status: REG R CR Insurance: [facility] SEL[facility]Y INSURANCE Patient's Visit Information Visit Information Visit Information: JASMINE SILVA is a 68 year old M referred to Physical Therapy by Dr. Jeovany Graf MD with a diagnosis of LEFT TRIMALLEOLAR FRACTURE ,S/P ORIF. Date of Evaluation: 05/10/23 Physical Therapist: Emmanuel Govea, PT, Cert MDT, OCS Visit Plan Frequency: 2x /Week Duration: 6 Weeks Plan: S/P ORIF ANKLE IN JAN 2023 PATIENT WBAT WITH CAM BOOT REMOVE CAM BOOT FOR GAIT IN 4 WEEKS PER SISTER FROM DR PATIENT IS POOR HISTORIAN AND DIFFICULTY FOLLOWING UNDERSTAND AND DIRECTION PT INTERNETIONS AROM ,STRETCHING CALF ,STRENGTHEING EX'S ANKLE AND PROGRESS WB WITH CAM BOOT PER MD Subjective Subjective: This 68 y/o male presents to physical therapy with right ankle fracture close trimalleolar dislocation on 01/24/23. Patient fell at home slipping on bed. Patient went [facility] . Patient underwent s/o trimalleolar ORIF done by DR Hernadez at [facility]. Patient went to [place] for Rehab for [address] DR Hernadez 04/03/23 ,x-rays looked good and to return to DR 3 weeks. Patient return to Home March. Initially patient was NWB LLE progressed to WBAT with cane with CAM boot. Patient seen DR Graf who is family and recommended. RTD in DR Garf next week. Patient and sister is poor historian. Patient lives in trailer with ramp. Bath/tube shower. Patient sister assist with bathing and dressing . Sister does cooking and cleaning. Patient has limitations with ADLS and function along with gait. Patient has QC and fww . Patient comorbities influences condition with schizophrenia Patient is poor historian unable to don/doff cam boot. 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) mild pes planus ,calcaneal valgus PALPATION: unremarkable GAIT: ambulate with cane and CAM boot QC increase speed NEURO: denies paresthesia/tingling AROM: dorsiflexion -10 degrees ,plantar flexion 60 degrees ,inversion 30 degrees ,eversion 0 degrees MMT: (peak force) plantar flexion 15.8 ,anterior tibialis 12.2,peroneus 10.2 ,posterior tibialis 12.2 ( * difficulty following commands and understand direction ,sister present*) Balance/Special Test Scores Lower Extremity Functional Score: 17 Goals Goal 1:: Patient to be I with HEP with sister assist Goal Time Frame: 6-8 Weeks Goal 2:: Patient to ambulate improved gait with shoe with normal iza Goal Time Frame: 6-8 Weeks Goal 3:: Patient to improve AROM ankle by 5 10 degrees to improve gait Goal Time Frame: 6-8 Weeks Goal 4:: Patient to improve peak force by 5-10 # to improve gait and function Goal Time Frame: 4-6 Weeks Goal 5:: Patient to LFES score by 5-10 points to improve gait and QOL Goal Time Frame: 4-6 Weeks Goal 6:: Patient to demonstrate 40-50% improvement with increase function and gait Goal Time Frame: 6-8 Weeks Rehabilitation Potential Physical Therapy Diagnosis: Patient underwent s/p ORIF ankle left in DEC with decrease ROM ,weakness ,poor proprioception impairs gait and function along with comorbities influences condition thus benefit from skilled PT Rehabilitation Potential: Fair Anticipated Interventions Patient/Client Instruction: Educate patient on: Condition and Plan of Care For the Purpose of:: To decrease pain, To increase ROM, To improve muscle performance and motor function, To improve ability to perform ADL's, To increase tolerance to activity/condition/posit ion, To improve ability of physical actions for home/community/work/leis ure, To improve gait and locomotor functions, To improve health of tissue, To decrease soft tissue restriction and To increase flexibility/ROM Therapeutic Exercise to Include: Strength training, Endurance training, Balance training, Flexibilty training, Gait and locomotor training, Passive ROM and Active ROM For the Purpose of:: To decrease pain, To increase ROM, To improve muscle performance and motor function, To improve ability to perform ADL's, To increase tolerance to activity/condition/posit ion, To improve ability of physical actions for home/community/work/leis ure, To improve gait and locomotor functions, To improve health of tissue, To decrease soft tissue restriction, To increase flexibility/ROM and To improve tolerance to ADL's Text: Thank you for the o (more content not included)... Normal [facility] Basic Metabolic Panelon 01-0 2020 CKD-EPI Estimated Glomerular Filtration Rate (eGFR) is calculated using the 2020 CKD-EPI creatinine equation. This equation uses serum creatinine, sex and age for calculating the eGFR. Normal [facility] Comment on above: Performed By: #### B MP #### [facility] [address] [place] [address]257 Anion gap [Moles/Vol] 9 mmol/L Normal 8-15 [facility] Comment on above: Performed By: #### B MP #### [facility] [address] [place] [address] 13100 Calcium [Mass/Vol] 9.2 mg/dL Normal 8.6-10.6 [facility] Comment on above: Performed By: #### B MP #### [facility] [address] [place] [address] 69136 Chloride [Moles/Vol] 104 mmol/L Normal 98-107 [facility] Comment on above: Performed By: #### B MP #### [facility] [address] [place] [address] 92877 CO2 [Moles/Vol] 28 mmol/L Normal 22-29 [facility] Comment on above: Performed By: #### B MP #### [facility] [address] [place] [address] 13635 Creatinine [Mass/Vol] 1.0 mg/dL Normal 0.5-1.2 [facility] Comment on above: Performed By: #### B MP #### [facility] [address] [place] [address] 05491 eGFR 81 mL/min/1.73sqm Normal >=60 [facility] Comment on above: Performed By: #### B MP #### [facility] [address] [place] [address] 69898 Glucose [Mass/Vol] 99 mg/dL Normal 74-109 [facility] Comment on above: Performed By: #### B MP #### [facility] [address] [place] [address] 24989 Potassium [Moles/Vol] 3.5 mmol/L Normal 3.4-5.1 [facility] Comment on above: Performed By: #### B MP #### [facility] [address] [place] [address] 43494 Sodium [Moles/Vol] 141 mmol/L Normal 136-145 [facility] Comment on above: Performed By: #### B MP #### [facility] [address] [place] [address] 62134 Urea nitrogen [Mass/Vol] 14 mg/dL Normal 6-23 [facility] Comment on above: Performed By: #### B MP #### [facility] [address] [place] [address] 68918 CBC with Diffon 02-24-2023 BA# 0.0 x(10)3/cumm Normal 0.0-0.1 [facility] Comment on above: Performed By: #### C BCDIFF #### [facility] [address] [place] [address] 56137 Basophils/100 WBC (Bld) 0.4 % Normal 0.0-1.0 [facility] Comment on above: Performed By: #### C BCDIFF #### [facility] [address] [place] [address] 19552 EO# 0.3 x(10)3/cumm Normal 0.0-0.4 [facility] Comment on above: Performed By: #### C BCDIFF #### [facility] [address] [place] [address] 86165 Eosinophils/100 WBC (Bld) 7.2 % High 0.0-6.1 [facility] Comment on above: Performed By: #### C BCDIFF #### [facility] [address] [place] [address] 32496 Erythrocyte distribution width (RBC) [Ratio] 15.1 % Normal 11.1-15.3 [facility] Comment on above: Performed By: #### C BCDIFF #### [facility] [address] [place] [address] 50255 Hematocrit (Bld) [Volume fraction] 37.4 % Low 37.6-50.6 [facility] Comment on above: Performed By: #### C BCDIFF #### [facility] [address] [place] [address] 68535 Hemoglobin (Bld) [Mass/Vol] 12.4 g/dL Low 12.9-17.5 [facility] Comment on above: Performed By: #### C BCDIFF #### [facility] [address] [place] [address] 82960 LY# 1.6 x(10)3/cumm Normal 0.8-2.9 [facility] Comment on above: Performed By: #### C BCDIFF #### [facility] [address] [place] [address] 15789 Lymphocytes/100 WBC (Bld) 35.0 % Normal 12.2-42.6 [facility] Comment on above: Performed By: #### C BCDIFF #### [facility] [address] [place] [address] 04611 MCH (RBC) [Entitic mass] 32.1 pg Normal 27.2-33.6 [facility] Comment on above: Performed By: #### C BCDIFF #### [facility] [address] [place] [address] 54856 MCHC (RBC) [Mass/Vol] 33.2 g/dL Normal 32.9-35.3 [facility] Comment on above: Performed By: #### C BCDIFF #### [facility] [address] [place] [address] 31623 MCV (RBC) [Entitic vol] 96.8 fL High 81.3-96.7 [facility] Comment on above: Performed By: #### C BCDIFF #### [facility] [address] [place] [address] 97222 MO# 0.4 x(10)3/cumm Normal 0.2-0.8 [facility] Comment on above: Performed By: #### C BCDIFF #### [facility] [address] [place] [address] 33748 Monocytes/100 WBC (Bld) 9.0 % Normal 3.3-11.6 [facility] Comment on above: Performed By: #### C BCDIFF #### [facility] [address] [place] [address] 96035 NE# 2.3 x(10)3/cumm Normal 1.3-7.4 [facility] Comment on above: Performed By: #### C BCDIFF #### [facility] [address] [place] [address] 36376 Neutrophils/100 WBC (Bld) 48.4 % Normal 44.9-78.8 [facility] Comment on above: Performed By: #### C BCDIFF #### [facility] [address] [place] [address] 00096 Platelet mean volume (Bld) [Entitic vol] 7.5 fL Normal 6.4-10.0 [facility] Comment on above: Performed By: #### C BCDIFF #### [facility] [address] [place], [place] [phone] PLT 141 x(10)3/cumm Normal 138-367 [facility] Comment on above: Performed By: #### C BCDIFF #### [facility] [address] [place] [address] 88957 Plt Morph Normal [facility] Comment on above: Performed By: #### C BCDIFF #### [facility] [address] [place] [address] 11008 RBC 3.87 X(10)6/cumm Low 4.20-5.80 [facility] Comment on above: Performed By: #### C BCDIFF #### [facility] [address] [place] [address] 64591 RBC Morph cont Normal [facility] Comment on above: Performed By: #### C BCDIFF #### [facility] [address] [place], [place] [phone] RBC morphology finding Nom (Bld) Normal [facility] Comment on above: Performed By: #### C BCDIFF #### [facility] [address] [place], [place] [phone] WBC 4.7 x(10)3/cumm Normal 3.6-10.3 [facility] Comment on above: Performed By: #### C BCDIFF #### [facility] [address] [place], [place] [address] WBC Morph Normal [facility] Comment on above: Performed By: #### C BCDIFF #### [facility] [address] [place], [place] [address] CNPNon 02-07-2023 CNPN Telephone (PODIWS) -------- JASMINE SILVA ([id number]) 1955 M Date Time Provider Department 02/07/23 TENZIN LOPEZ During your visit today, we recorded the following information about you: Nydia Cruz, RN 02/07/2023 5:02 PM Signed [facility] faxed over office notes for this patient, they have been scanned into chart. Patient appears to have been seen In ED on 01/19/23 for Trimalleolar fracture of left ankle. Office notes are from 02/07/23. Marked as referred to our office and states need for ORIF. Dr Lopez, Please review. Jaimie Graf LPN 02/08/2023 8:20 AM Signed Tenzin Lopez Amanda, RN; [facility] 10 hours ago (9:44 PM) I do not perform orif on ankles. He will need to go to a provider that operates on ankles ROBERTO Doe Amelia, LPN 02/08/2023 9:25 AM Signed Tenzin Lopez 6 minutes ago (9:17 AM) He can see anyone of our foot and ankle orthopedic specialists. 1. [facility] 2. [facility] ROBERTO Doe Tayler, LEONIE 02/08/2023 11:13 AM Signed Attempted to contact patient but call could not be completed as dialed. Contacted [facility] and spoke to nurse. Explained that this is out of Dr. Lopez's scope and gave contact information for Dr. Crenshaw and Dr. Lynch's offices. Jaimie Graf LPN 02/10/2023 9:02 AM Signed Contacted [facility] and spoke to nurse. Explained that this is out of Dr. Lopez's scope and gave contact information for Dr. Crenshaw and Dr. Lynch's offices. Jaimie Graf LPN Allergies As of Date: 02/07/2023 (No Known Allergies) Date Reviewed: 01/19/2023 Reviewed by: Krystal Mitchell RN - Fully Assessed Reason for Visit: Referral Information [[id number]] Prescriptions as of 02/10/2023 - SYMBICORT 160-4.5 mcg/actuation inhaler Inhale 2 Puffs as instructed two times a day. - divalproex DR (DEPAKOTE) 250 mg EC tablet Take 25 mg by mouth once daily. - FEROSUL 325 mg (65 mg iron) tablet Take 1 tablet by mouth every afternoon. - Ascorbic Acid 1,000 mg tablet Take 1 tablet by mouth every afternoon. - lamoTRIgine (LAMICTAL) 25 mg tablet Take 1 tablet by mouth every 12 hours. - OLANZapine (ZYPREXA) 10 mg tablet Take 20 mg by mouth daily at bedtime. - pantoprazole DR (PROTONIX) 40 mg tablet Take 1 tablet by mouth every afternoon. - prazosin (MINIPRESS) 5 mg cap Take 5 mg by mouth once daily. Problem List As Of Date: 02/07/2023 (None) Encounter Status:Closed by IVA SZYMANSKI on 02/08/[address] [facility] Ankle min 3 Viewson 01-25-20 Ankle min 3 Views [facility] [address] [place] [address] Ankle min 3 Views MR#: [id number] Acct: [id number] Name: JASMINE SILVA Rep #: [id number] : 1955 M 67 From: Abhi Christianson MD PCP: Dr. Jeovany Graf MD Status: DEP AMB Study: Ankle min 3 Views Date of Exam: 01/24/23 Exam# [id number] Ordering Dr: Caleb Castillo MD [id number] EXAM: XR LEFT ANKLE COMPLETE, 3 OR MORE VIEWS CLINICAL INDICATION: pain TECHNIQUE: Frontal, lateral and oblique views of the left ankle. COMPARISON: No relevant prior studies available. FINDINGS: BONES/JOINTS: Fracture the distal fibular shaft. There is also a fracture the medial malleolus. There is widening of the anterior tibiotalar joint. No sclerotic or destructive changes observed. SOFT TISSUES: Unremarkable. No soft tissue swelling or gas. No radiopaque foreign body. RAD/Ankle min 3 Views IMPRESSION: Bimalleolar fracture with widening of the anterior tibiotalar joint. Electronically Signed: Abhi Christianson MD at 23:19 EST , CC: Dr. Jeovany Graf MD; Dr. Caleb Castillo MD [employer] Power Plant Manager: Signed Normal [facility] Orthopedic Visit Reporton Orthopedic Visit Report [facility] [address] [place] [address] OFFICE VISIT Date of Service: 01/24/23 MR#: [id number] Acct: [id number] Name: JASMINE SILVA Rep #: [id number] : 1955 Provider: Dr. 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: No Accompanied by: Sister Is patient in pain?: Yes Pain scale (1-10): 6 Allergies No Known Allergies Allergy (Verified 01/24/23 12:52) Medications ascorbic acid (vitamin C) 1,000 mg tablet 1 g PO DAILY supplement 09/08/22 [History Confirmed 01/24/23] divalproex 250 mg tablet,delayed release 750 mg PO BID schizophrenia 09/08/22 [History Confirmed 01/24/23] guanfacine 2 mg tablet 2 mg PO .hs sleep 09/08/22 [History Confirmed 01/24/23] lamotrigine 25 mg tablet 25 mg PO BID impulse disorder 09/08/22 [History Confirmed 01/24/23] olanzapine 20 mg tablet 20 mg PO .hs sleep disorder 09/08/22 [History Confirmed 01/24/23] prazosin 5 mg capsule 5 mg PO .HS prevent nightmares 09/08/22 [History Confirmed 01/24/23] ferrous sulfate 325 mg (65 mg iron) tablet (FeroSul) 325 mg PO BIDCM supplement #1 TAB 09/10/22 [Rx Confirmed 01/24/23] pantoprazole 40 mg tablet,delayed release 40 mg PO DAILY #30 tabs 09/10/22 [Rx Confirmed 01/24/23] guanfacine 1 mg tablet 2 mg PO BID sleep 12/13/22 [History Confirmed 01/24/23] olanzapine 10 mg tablet 10 mg PO QHS 30 days #30 tabs 12/13/22 [Rx Confirmed 01/24/23] oxycodone 5 mg tablet 2.5 mg PO Q6H PRN 01/24/23 [History Confirmed 01/24/23] PFSH Medical History (Updated 01/24/23 @ 13:46 by Caleb Castillo MD) Closed left ankle fracture Community acquired pneumonia DVT (deep venous thrombosis) Former smoker Gastroesophageal reflux disease Hypertension Left ankle pain Migraines Myocardial infarct Paranoid schizophrenia Pneumomediastinum Pneumonia Schizophrenia Subcutaneous emphysema Family History Other Mental disorder Social History Smoking Status: Former smoker alcohol intake: never substance use type: does not use HPI LEFT ANKLE Details: This documentation accurately reflects the service provided and the decisions made by me, Dr. Caleb Castillo MD 01/24/23 1248. Part of today???s visit was documented by [ ], acting as scribe. JASMINE SILVA is a 67 year old M here today for left ankle injury. Patiently has fractures there. They slipped in the grass on Monday now about 3 days ago. Here with the patient's sister. The patient's sisters ex- drove them today. The patient has paranoid schizophrenia and is apparently non-smoker without any other issues Ortho Exam General General: Yes no acute distress Neurologic: Yes alert and Yes oriented x3 Psychologic: Yes reasonable and appropriate Left Foot/Ankle Skin: Yes CDI, Ecchymosis, Soft Tissue Swelling and Erythema Exam: Yes Ecchymosis, Soft tissue swelling and Erythema Compartments: soft Dorsiflexion 0-20: 0 degrees Plantar Flexion 0-40: 10 degrees ROM: Yes pain with range of motion Motor: Ankle Dorsiflextion: 3, Ankle Plantar Flexion: 3, Ankle Eversion: 3, Ankle Inversion: 3 and EHL: 3 Sensation: Deep Peroneal Nerve: I, Superficial Peroneal Nerve: I, Tibial Nerve: I, Sural Nerve: I and Saphenous Nerve: I Pulses: Dorsalis Pedis: 2 ANKLE: fracture blister posteromedially, splint was removed. no knee pain or proximal leg pain. Supplemental Info xr 3 views L ankle -shows a distal fibula fracture as well as a medial malleolus fracture and displaced posterior malleolus fracture as well. Coding Level of Care Code Off vis,new,level 3 Diagnoses Left ankle pain M25.572 Closed left ankle fracture S82.892A Assessment and Plan Assessment and Plan (1) Left ankle pain: Status: Acute Plan: 67 M with L ankle tri mal fracture. There is a significant sized posterior malleolus fracture fragment that is displaced I suspect this will need to be fixated with posterior to anterior fixation and syndesmosis fixation as well my impression is that in this patient with paranoid schizophrenia this would be a high risk operation and complex ankle surgery. My recommendation now and I will go ahead make a stat referral to an orthopedic foot and ankle surgeon. Will send them to [facility] I gave Opal in our office a specific name although they can triage the referral as well for now I will wrap the patient back up in the 3 sided splint and recommended to the patient to be strict nonweightbearing as this can be an unstab (more content not included)... Normal [facility] ALLIED HEALTHon 01-19-2023 ALLIED HEALTH HNO ID: [id number] Author: Balbir Camacho CT Service: Radiology Author Type: Technologist Type: Allied Health Filed: 01/19/2023 6:03 PM Note Text: Radiology Service Progress Note PATIENT NAME: Jasmine Silva DATE OF SERVICE: January 19, 2023 TIME: 6:02 PM PATIENT IDENTITY VERIFICATION COMPLETED USING TWO (2) IDENTIFIERS: Name and Date of confirmed by patient verbally. FALL SCREENING: Has the patient had 2 falls in the last year or 1 fall with injury or currently using an Ambulatory Assistive Device (Walker, Cane, Wheelchair, Crutches, etc.)? Emergency Room Patient: Screened in ED PATIENT GENDER DATA: Male PATIENT RELEVANT IMPLANT DATA REVIEWED: Not Applicable RADIOLOGY DEPARTMENT: General X-ray: Exam(s) Completed: Lower Extremity X-Ray(s): Ankle, Left PERIPHERAL IV DATA: Not applicable SIGNED BY: JENNIFER Licona January 19, 2023 6:02 PM Normal [facility] ED NOTEon 01-19-2023 ED NOTE HNO ID: [id number] Author: Krystal Mitchell RN Service: Emergency Medicine Author Type: Registered Nurse Type: ED Notes Filed: 01/19/2023 5:43 PM Note Text: Splint complete; preparing for repeat x-ray Normal [facility] ED NOTE HNO ID: [id number] Author: Krystal Mitchell RN Service: Emergency Medicine Author Type: Registered Nurse Type: ED Notes Filed: 01/19/2023 5:42 PM Note Text: Dr. Ta at bedside to prepare patient for splint. Pt comfortable at this time. Family remains at bedside. Normal [facility] ED NOTE HNO ID: [id number] Author: Krystal Mitchell RN Service: Emergency Medicine Author Type: Registered Nurse Type: ED Notes Filed: 01/19/2023 4:28 PM Note Text: Pt fell while taking out trash; pain to left ankle. Ankle positive for deformity and swelling; pulse present with doppler. Foot warm; pt able to move Normal [facility] ED PROV NOTEon 01-19-2023 ED PROV NOTE HNO ID: [id number] Author: Roldan Ta MD Service: Emergency Medicine Author Type: Physician Type: ED Provider Notes Filed: 01/20/2023 8:21 AM Note Text: ED Provider Note Patient Name: Jasmine Silva : 1955 SERVICE DATE: 01/19/23 History Patient presents with: Fall Ankle Injury Jasmine Silva is a 67 year old male with history of multiple chronic medical problems who presents with Fall and Ankle Injury. Patient took nothing for this prior to arrival. - Symptoms began this afternoon. - Severity: moderate - Timing: constant - Quality: sore - Fall and Ankle Injury is exacerbated by movement. - Fall and Ankle Injury is not exacerbated by rest. - Symptoms are associated with nothing. - Symptoms are not associated with any other injury. - Improved by rest. - Not improved by movement Patient slipped in mud twisted left ankle had pain and immediate deformity unable to bear weight. Reports no other injuries. No previous history of fracture. No past medical history on file. No past surgical history on file. No family history on file. Social History Tobacco Use - Smoking status: Not on file - Smokeless tobacco: Not on file Substance and Sexual Activity - Alcohol use: Not on file - Drug use: Not on file - Sexual activity: Not on file ALLERGIES No Known Allergies Review of Systems Constitutional: Negative for chills and fever. Gastrointestinal: Negative for nausea and vomiting. Skin: Negative for rash and wound. Allergic/Immunologic: Negative for environmental allergies, food allergies and immunocompromised state. Neurological: Negative for syncope and light-headedness. Physical Exam Vitals [01/19/23 1620] BP Pulse Temp Temp src Resp SpO2 Weight Height -- -- -- -- -- -- 50.8 kg (112 lb) 1.626 m (5' 4) Physical Exam Vitals and nursing note reviewed. Constitutional: General: He is not in acute distress. Appearance: Normal appearance. He is not ill-appearing, toxic-appearing or diaphoretic. Cardiovascular: Rate and Rhythm: Normal rate. Pulses: Normal pulses. Comments: Intact dorsal pedal pulses left foot and posterior tibial pulse left foot good distal perfusion Pulmonary: Effort: Pulmonary effort is normal. No respiratory distress. Musculoskeletal: General: Swelling, tenderness and deformity present. Comments: Left ankle deformity intact skin No left knee pain Skin: General: Skin is warm and dry. Findings: No rash. Neurological: General: No focal deficit present. Mental Status: He is alert and oriented to person, place, and time. Comments: Intact sensation left foot Psychiatric: Mood and Affect: Mood normal. Behavior: Behavior normal. Thought Content: Thought content normal. Judgment: Judgment normal. Diagnostic Testing ED Labs Ordered and Reviewed - No data to display SPLINT APPLICATION Date/Time: 01/19/2023 6:24 PM Performed by: Roldan Ta MD Authorized by: Roldan Ta MD Pre-procedure details: Sensation: Normal Skin color: Normal for ethnicity Procedure details: Laterality: Left Location: Ankle Ankle: L ankle Splint type: Ankle stirrup and short leg Supplies: Elastic bandage, Ortho-Glass and cotton padding Post-procedure details: Pain: Improved Sensation: Normal Patient tolerance of procedure: Tolerated well, no immediate complications ED Course / Clinical Impression Clinical Impressions as of 01/19/23 182 Closed left ankle fracture MDM / Disposition / Plan Patient has a closed trimalleolar fracture of the left ankle with some displacement he was placed in a 3 sided splint by myself and improved alignment with the procedure. Referral to orthopedics walker was provided in the emergency department with wheels and he is able to keep the weight off of the left ankle but I also prescribed a wheelchair. Family at home that can assist him as needed Tylenol or ibuprofen for pain with prescription [place] if needed. No indication for transfer or admission. History and Record Review Clinical information obtained from an independent historian. History obtained from or confirmed by: family member. External record(s) reviewed: PDMP reviewed. Differential Diagnoses - Fracture dislocation left ankle is more likely for the following reason(s): X-ray shows this - Open fracture is less likely for the following reason(s): HANDP not suggestive Management Radiology Reports XR ANKLE GENERAL 3V AP/LAT/OBL LEFT Final Result IMPRESSION: Status post placement of left ankle into cast in the presence of ankle fracture dislocation. [employer] Power Plant Manager: NISHA Transcribe Date/Time: Jan 19 2023 6:22P Dictated by : TRISTAN KIM MD This examination was interpreted and the report reviewed and electronically signed by: TRISTAN KIM MD on Jan 19 2023 6:23PM EST XR ANKLE GENERAL 3V AP/LAT/OBL LEFT Final Result IMPRESSION: Trimalleo (more content not included)... Normal [facility] XR ANKLE 3V AP/LAT/OBL LTon 01-19-2023 XR ANKLE 3V AP/LAT/OBL LT * * *Final Report* * * DATE OF EXAM: Jan 19 2023 6:01PM LDX 5298 - XR ANKLE 3V AP/LAT/OBL LT / PROCEDURE REASON: Fracture, ankle * * * * Physician Interpretation * * * * EXAM TITLE: XR ANKLE 3V AP/LAT/OBL LT DATE: 01/19/2023 INDICATION: Status post reduction of left ankle fractures. COMPARISON: Film taken earlier the same day. AP, oblique, and lateral views of the left ankle show transverse fracture through the medial malleolus with fracture fragments distracted by approximately 6 mm. Oblique comminuted fracture through the distal left fibula. Slight lateral displacement of talar dome with reference to distal tibia. No other fracture identified. IMPRESSION: Status post placement of left ankle into cast in the presence of ankle fracture dislocation. Hydrogen Power Plant Manager: [facility] Transcribe Date/Time: Jan 19 2023 6:22P Dictated by : TRISTAN KIM MD This examination was interpreted and the report reviewed and electronically signed by: TRISTAN KIM MD on Jan 19 2023 6:23PM EST [id number] Normal [facility] XR ANKLE 3V AP/LAT/OBL LT * * *Final Report* * * DATE OF EXAM: Jan 19 2023 4:56PM LDX 5298 - XR ANKLE 3V AP/LAT/OBL LT / PROCEDURE REASON: Ankle pain, no prior imaging * * * * Physician Interpretation * * * * EXAMINATION: XR ANKLE 3V AP/LAT/OBL LT CLINICAL HISTORY: Ankle pain, no prior imaging Technique: XR ANKLE 3V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 Protein Ql (U) Negative Negative [facility] Serum or plasma albumin geno urement (mass/volume)Ordered By: Dr. Graf on 06-27-2022 Albumin [Mass/Vol] 3.5 g/dL 3.2-5.0 [facility] Serum or plasma albumin/glob ulin mass ratioOrdered By: Dr. Graf on 06-27-2022 Albumin/Globulin [Mass ratio] 0.9 {ratio} 0.9-2.4 [facility] Serum or plasma calcium geno urement (mass/volume)Ordered By: Dr. Graf on 06-27-2022 Calcium [Mass/Vol] 8.8 mg/dL 8.5-10.1 [facility] Serum or plasma creatinine m easurement (mass/volume)Ordered By: Dr. Graf on 06-27-2022 Creatinine [Mass/Vol] 0.96 mg/dL 0.70-1.30 [facility] Comment on above: The validity of the calculated GFR & GFRAA in patients over 70 years has not been determined. Clinical correlation is essential. Serum or plasma ferritin calli surement (mass/volume)Ordered By: Dr. Graf on 06-27-2022 Ferritin [Mass/Vol] 6 ng/mL 26-388 [facility] Serum or plasma urea nitroge n measurement (mass/volume)Ordered By: Dr. Graf on 06-27-2022 Urea nitrogen [Mass/Vol] 11 mg/dL 7-18 [facility] Squamous epithelial cells de tection in urine sediment by light microscopyOrdered By: Dr. Graf on 06-27-2022 Epithelial cells.squamous LM Ql (Urine sed) 0-5 SEEN /hpf 0-5 [facility] Thin prep Papanicolaou smear with manual screeningOrdered By: Dr. Graf on 06-27-2022 Thin prep Papanicolaou smear with manual screening 17 U/L 15-37 [facility] Thin prep Papanicolaou smear with manual screening 7 5-15 [facility] Urine blood detectionOrdered By: Dr. Graf on 06-27-2022 RBC Ql (U) Negative Negative [facility] RBC Ql (U) 0-5 SEEN /hpf 0-5 [facility] Urine clarityOrdered By: Dr. Graf on 06-27-2022 Clarity (U) Sl. Cloudy Clear [facility] Urine color determinationOrd ered By: Dr. Graf on 06-27-2022 Color (U) Yellow Yellow [facility] Urine glucose detectionOrder ed By: Dr. Graf on 06-27-2022 Glucose Ql (U) Normal mg/dl Normal [facility] Urine leukocyte esterase det ection by dipstickOrdered By: Dr. Graf on 06-27-2022 Leukocyte esterase Test strip Ql (U) 500 /ul Negative [facility] Urine osmolality measurement Ordered By: Dr. Graf on 06-27-2022 Osmolality (U) [Osmolality] 129 mOsm/KG >50 [facility] Comment on above: Normal Urine Referen ce Ranges Random: 50 - 1200 mOsm/kg H20 depending on fluid intake Random: >850 mOsm/kg after 12 hour fluid restriction 24 hour: ~300 - 900 mOsm/kg H2O Urine pHOrdered By: Dr. Leonardo quintero on 06-27-2022 pH (U) 7.0 [pH] 5.0 - 8.0 [facility] Urine phencyclidine (PCP) de tectionOrdered By: Dr. Graf on 06-27-2022 Phencyclidine Ql (U) Negative < 25 ng/mL [facility] Urine sediment bacteria coun t by microscopy (number/high power field)Ordered By: Dr. Graf on 06-27-2022 Bacteria LM.HPF (Urine sed) [#/Area] RARE /hpf None Seen [facility] Comment on above: Previous reported re sult: 0 SEEN /hpfEdited by: CARMEN on 06/27/22:1813 Urine specific gravity measu rementOrdered By: Dr. Graf on 06-27-2022 Specific gravity (U) [Rel density] 1.005 1.002-1.030 [facility] Urobilinogen Auto test strip Ql (U)Ordered By: Dr. Graf on 06-27-2022 Urobilinogen Ql (U) Normal mg/dl Normal [facility] Encounters Encounter Date Encounter Type Care Provider Facility Start: 10-10-2023 End: 10-10-2023 ambulatory Jeovany Graf Facility:[facility] Start: 05-10-2023 End: 05-10-2023 ambulatory Jeovany Graf Facility:[facility] Start: 04-03-2023 End: 04-03-2023 ambulatory PIYUSH PICKETT MD~[id number] [facility] Start: 02-24-2023 End: 03-13-2023 Evaluation and management of inpatient PIYUSH PICKETT MD~[id number] [facility] Start: 02-21-2023 End: 02-21-2023 ambulatory PIYUSH PICKETT MD~[id number] [facility] Start: 02-07-2023 Telephone encounter Tenzin Méndez Work Phone: Podiatry Comment on above: Referral Information [facility]: [facility] Start: 01-24-2023 End: 01-24-2023 ambulatory [facility] Start: 01-19-2023 Emergency department patient visit Facility:[facility] Start: 12-30-2022 End: 12-30-2022 ambulatory [facility] Facility:[facility] Start: 12-23-2022 End: 12-23-2022 ambulatory [facility] Facility:[facility] Start: 12-13-2022 End: 12-13-2022 ambulatory [facility] Facility:[facility] Start: 06-27-2022 End: 06-27-2022 ambulatory [facility] Work Phone: Start: 06-27-2022 End: 06-27-2022 Patient encounter procedure [facility] Procedures Date Procedure Procedure Detail Performing Clinician Start: 02-24-2023 Introduction of Anes thetic Agent into Peripheral Nerves and Plexi, Percutaneous Approach PIYUSH PICKETT MD~[id number] Start: 02-24-2023 Repair Left Ankle Helen int, Open Approach PIYUSH PICKETT MD~[id number] Start: 02-24-2023 Reposition Left Tibi a with Internal Fixation Device, Open Approach PIYUSH PICKETT MD~[id number] Plan of Treatment Date Care Activity Detail Author Start: 06-27-2022 Procedure [facility] Payers Date Payer Category Payer Self-pay [id number] 2022 Medicaid [employer] [id number] 2022-Present [phone] [address] [place] [address] Medicaid [id number] 2011 Unknown [employer] [id number] 1959 Unknown [id number] 1953 Unknown [id number] 1953 Unknown [id number] 1953 Unknown [id number] Unknown [id number] Unknown [id number] Unknown [id number] Unknown [id number] Unknown [id number] Unknown [id number] Unknown [id number] [id number] Unknown [id number] Social History Date Type Detail Facility Start: 12-03-2020 Tobacco smoking stat RUSTIS Unknown if ever smoked [facility] Start: 08-05-2020 None [facility] Start: 1955 Sex Assigned At Male W [facility] Start: 01-19-2023 Tobacco smoking stat us NHIS Never smoked tobacco [facility] Start: 01-19-2023 Tobacco use and exposure Smokeless tobacco non-user [facility] Start: 01-19-2023 Alcohol intake Lifetime non-d jazlyn (finding) [facility] Start: 01-19-2023 History of Social function [facility] Start: 01-19-2023 Tobacco use panel [facility] Start: 1955 Sex Assigned At Not on file [facility] Note 02-08-2023 Telephone Encounter - Iva Szymanski RN - 02/08/2023 11:08 AM ESTTelephone Encounter - Jaimie Graf LPN - 02/08/2023 9:24 AM ESTTelephone Encounter - Jaimie Graf LPN - 02/08/2023 8:19 AM EST Note Date & Type Note Facility 02-08-2023 Miscellaneous Notes Formattin g of this note might be different from the original. Attempted to contact patient but call could not be completed as dialed. Contacted [facility] and spoke to nurse. Explained that this is out of Dr. Lopez's scope and gave contact information for Dr. Crenshaw and Dr. Lynch's offices. Images from the original note were not included. Tenzin Lopez 6 minutes ago (9:17 AM) He can see anyone of our foot and ankle orthopedic specialists. 1. Flower 2. Nilson Lopez DPM Images from the original note were not included. Tenzin Lopez Amanda, RN; [facility] Podiatry Pool 10 hours ago (9:44 PM) I do not perform orif on ankles. He will need to go to a provider that operates on ankles Tenzin Lopez DPM [facility] faxed over office notes for this patient, they have been scanned into chart. Patient appears to have been seen In ED on 01/19/23 for Trimalleolar fracture of left ankle. Office notes are from 02/07/23. Marked as referred to our office and states need for ORIF. Dr Lopez, Please review. documented in this encounter [facility] Evaluation note Note Date & Type Note Facility Evaluation note No assessment information availa [facility] Work Phone: Advance Directives No Advanced Directives Records Found Advance Directive Response Recorded Date/ Time Advance Directives No March 9:09am Living Will No December 03 6:25pm [employer] Operations Manager No December 03, 2020 6:25pm Summary Purpose Family History No Family History Records FoundNo Family History Records FoundNo Family History Records FoundNo Family History Records Found Additional Source Comments Care Teams (unrecognized sec tion and content) Team Status: Active Member Role Status Dates Dr. Jeovany Graf MD Family Provider Active Dr. Jeovany Graf MD Primary Care Provider Active Team Status: Inactive Member Role Status Dates Dr. 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 DATE CREATED AUTHOR AUTHOR'S ORGANIZ ATION 11/01/2023 [facility] DATE CREATED AUTHOR AUTHOR'S ORGANIZ ATION 02/10/2024 [facility] Source Comments (unrecognize d section and content) In the event this informatio n is protected by the Federal Confidentiality of Alcohol and Drug Abuse Patient Records regulations: The Federal rules restrict any use of the information to criminally investigate or prosecute any alcohol or drug abuse patient.[facility] Reason for Visit (unrecogniz ed section and content) Reason Comments Referral Information FOR RECORDS PERTAINING TO PATIENTS WHO ARE OR HAVE BEEN ENROLLED IN A CHEMICAL DEPENDENCY/SUBSTANCEABUSE PROGRAM, SOME INFORMATION MAY BE OMITTED. This clinical summary was aggregated from multiple sources. Caution should be exercised in using it in the provision of clinical care. This summary normalizes information from multiple sources, and as a consequence, information in this document may materially change the coding, format and clinical context of patient data. In addition, data may be omitted in some cases. CLINICAL DECISIONS SHOULD BE BASED ON THE PRIMARY CLINICAL RECORDS. [employer] provides no warranty or guarantee of the accuracy or completeness of information in this document.
[2024-11-01 22:23] VITALS: BP 159/95; PULSE 98; RESP 20; O2SAT 95
[2024-11-01 22:36] LABS: Alcohol, Blood (Medical)-Serum < 10.1 mg/dL (<=10.0)
[2024-11-01 22:51] LABS: AST(SGOT) 23 U/L (<=37); Alanine Aminotransfer ALT/SGPT 9 U/L (<=46); Albumin, Serum 4.4 g/dL (3.4-4.8); Alkaline Phosphatase 80 U/L (40-129); Anion Gap 14 (5-15); BUN 18 mg/dL (4-19); BUN/Creat Ratio 15.0 RATIO (10-20); Calcium,Total 9.4 mg/dL (7.6-11.0); Carbon Dioxide 23.3 mmol/L (21.0-32.0); Chloride 105 mmol/L (98-108); Estimated Creatinine Clearance 50.26 ml/min (50-250); Globulin 3.3 g/dL (2.2-4.2); Glucose 71 mg/dL (70-99); Potassium 3.7 mmol/L (3.3-5.1)
[2024-11-01 22:53] LABS: Mucous, Urine 0 SEEN /hpf (<or=2+); Red Blood Cells-Urine 0 SEEN /hpf (0-5)
--- NOTE | 2024-11-01 23:08 | EX.ED.VIS.PS ---
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 He has a history of paranoid schizophrenia. There is concern he is using illicit drugs. He denies. Patient has been disruptive, violent, grandiose with change in sleep and eating. He is also had hallucinations. His house is in disarray and there is infestation of multiple types of insects. Patient was pink slipped. He was brought in by the [facility] from crisis. He was accompanied by police because of his behavior. Last ER visit was August 2022 for commune acquired pneumonia. He was seen November 2020 for psychosis/lana. Prior similar symptoms: Yes Recent Illness/Hospitalization: No PFSH PFSH Medical History Closed left ankle fracture Left ankle pain Paranoid schizophrenia Pneumomediastinum Former smoker Myocardial infarct Hypertension DVT (deep venous thrombosis) Migraines Community acquired pneumonia Pneumonia Subcutaneous emphysema Schizophrenia Gastroesophageal reflux disease Home Medications ?Medication ?Instructions ?Recorded ?Last Taken ?Type ascorbic acid (vitamin C) 1,000 mg 1 g PO DAILY supplement 09/08/22 09/07/22 History tablet guanfacine 2 mg tablet 2 mg PO .hs sleep 09/08/22 Unknown History melatonin 5 mg tablet 5 mg PO QHS 11/01/24 Unknown History paroxetine HCl 20 mg tablet 20 mg PO QPM 11/01/24 Unknown History propranolol 20 mg tablet 20 mg PO QHS 11/01/24 Unknown History quetiapine 300 mg tablet 300 mg PO QHS 11/01/24 Unknown History Allergy/AdvReac Type Severity Reaction Status Date / Time red dye Allergy PT UNSURE Verified 11/01/24 21:57 OF REACTION Family History Other Mental disorder Social History Smoking Status: Former smoker alcohol intake: never substance use type: does not use ROS ROS ED Constitutional Constitutional ED: Denies chills, fever(s) or subjective Eyes Eyes: Denies blurry vision or change in vision ENT ENT ED: Denies ear pain or rhinorrhea Cardiovascular Cardiovascular: Denies chest pain or palpitations Respiratory/Chest Respiratory/Chest: Denies cough, dyspnea or dyspnea on exertion Gastrointestinal Gastrointestinal: Denies abdominal pain, nausea or vomiting Genitourinary Genitourinary ED: Denies dysuria, hematuria or urinary frequency Musculoskeletal Musculoskeletal: Denies arthralgias or myalgias Neurologic Neurologic: Denies headache(s) Psychiatric Psychiatric: Reports other Details: See HPI narrative Endocrine Endocrinology: Denies polydipsia, polyphagia or polyuria Hematologic/Lymphatic Hematologic/Lymphatic: Denies easy bleeding or easy bruising EXAM Physical Exam Const Vital Signs: 11/01/24 21:08 11/01/24 21:54 11/01/24 22:23 Temperature 98 F Temperature Source Temporal Pulse Rate 77 83 98 Respiratory Rate 18 22 H 20 H Blood Pressure 152/87 H 153/83 H 159/95 H Blood Pressure Mean 108 106 116 Pulse Ox 99 100 95 Oxygen Delivery Method Room Air Room Air Room Air Positive well nourished, well developed and unkempt Constitutional Narrative: He is a thin uncapped disheveled gentleman who is disruptive and loud and at times needs redirection. He does have evidence of internal stimulation and admits to paranoia. General Appearance ED: unkempt, well developed and irritable; Negative for pallor HEENT Reports moist mucous membranes normocephalic and atraumatic Eyes PERRL and EOMs intact bilaterally Eyes Narrative: There is no nystagmus. General Eye ED: Negative for pale conjunctiva or scleral icterus Neck no lymphadenopathy, supple and no JVD Resp normal respiratory effort and clear to auscultation bilaterally Cardio S1 normal heart sound, S2 normal heart sound and no murmurs Rate: regular rate Rhythm: regular rhythm GI non-tender, non-distended and no masses Auscultation: normoactive bowel sounds Back/Spine no CVA tenderness Extremity normal to inspection Neuro oriented x3, CN's II-XII intact bilaterally, no sensory deficits noted and deep tendon reflexes 2+ bilaterally Sensorium / Orientation: alert Motor Exam: strength 5/5 throughout Psych denies homicidal ideation and denies suicidal ideation; Negative for thought process normal, cooperative, affect normal, speech normal, activity/motor behavior normal or denies hallucinations Appearance: unkempt and disheveled Attitude: paranoid, evasive and agitated Activity / Motor Behavior: psychomotor agitation Speech: rapid Mood & Affect: anxious and irritable Thought Content: No suicidality, No homicidality, No phobia(s), No delusion(s), hallucination(s), No depersonalization, No rumination(s) and No compulsion(s) Attention / Concentration: attention grossly impaired and concentration grossly impaired Memory / Cognition: memory grossly impaired Insight: poor Judgement: poor Skin Skin Narrative: No evidence of self-injury. General Skin Exam: Negative for jaundice or pallor MDM MDM MDM Narrative Medical decision making narrative: With concern for drug use will obtain drug screen as well as alcohol since this may be drug-induced psychosis. With history of paranoid schizophrenia this could be exacerbation of his paranoid schizophrenia since he is noncompliant with his meds. Plan is placement at psychiatric facility. Will obtain appropriate blood work and CAT scan to rule out infectious metabolic cause and intracranial process. Lab Data Attestation: I reviewed the patient's lab results. Lab results narrative: CBC is unremarkable. Electrolyte panel is normal. Liver enzymes normal. Alcohol nondetected. Urinalysis reveals pyuria and 1+ bacteria. Will send urine culture and treat with antibiotics. Tox screen is negative. Alcohol level is negative. Labs: Laboratory Results - last 24 hr 11/01/24 11/01/24 11/01/24 21:55 22:15 23:40 WBC 7.5 RBC 4.34 L Hgb 13.5 Hct 39.7 L MCV 91.5 MCH 31.1 MCHC 34.0 RDW Std Deviation 46.5 H RDW Coeff of Govind 13.7 Plt Count 320 MPV 9.1 Immature Gran % (Auto) 0.300 Neut % (Auto) 72.4 H Lymph % (Auto) 14.6 L [place] % (Auto) 6.8 Eos % (Auto) 5.4 H Baso % (Auto) 0.5 Absolute Neuts (auto) 5.4 Absolute Lymphs (auto) 1.09 Nucleated RBC % 0 PT 13.0 INR 1.0 Sodium 142 Potassium 3.7 Chloride 105 Carbon Dioxide 23.3 Anion Gap 14 BUN 18 Creatinine 1.18 Estim Creat Clear Calc 50.26 Est GFR (MDRD) Non-Af 66 BUN/Creatinine Ratio 15.0 Glucose 71 Calcium 9.4 Total Bilirubin 0.41 AST 23 ALT 9 Alkaline Phosphatase 80 Total Protein 7.7 Albumin 4.4 Globulin 3.3 Albumin/Globulin Ratio 1.3 Urine Color Yellow Urine Clarity Sl. Cloudy Urine pH 6.5 Ur Specific [place] 1.015 Urine Protein 30 H Urine Glucose (UA) Normal Urine Ketones Negative Urine Occult Blood 10 H Urine Nitrite Negative Urine Bilirubin Negative Urine Urobilinogen Normal Ur Leukocyte Esterase 500 H Urine RBC 0 SEEN Urine WBC 25-50 SEEN Ur Squamous Epith Cells 0-5 SEEN Amorphous Sediment 1+ Urine Bacteria 1+ Urine Mucus 0 SEEN Urine Opiates Screen NEGATIVE U Buprenorphine Qual NEGATIVE Ur Oxycodone Screen NEGATIVE Urine Methadone Screen NEGATIVE Urine Fentanyl Screen NEGATIVE Ur Barbiturates Screen NEGATIVE Ur Phencyclidine Scrn NEGATIVE Ur Amphetamines Screen NEGATIVE U Benzodiazepines Scrn NEGATIVE Urine Cocaine Screen NEGATIVE U Cannabinoids Screen NEGATIVE Ethyl Alcohol < 10.1 Radiography Diagnostic Testing: CT of the head reveals no evidence of subdural hematoma, epidural hematoma, subarachnoid hemorrhage or intraparenchymal bleed. There is no evidence of sinusitis. EKG Initial EKG: Attestation: I personally reviewed and interpreted this EKG as follows: Interpretation: Sinus Rhythm (Sinus rhythm rate of 63. Decreased anterior force. OR interval is 144 ms. QRS duration 74 ms per QT duration 406 ms. [place] is normal.) Treatment and Re-Evaluation Narrative: In my professional medical opinion patient UTI is not the cause of his behavior and paranoia. He was treated with cephalexin. He can be transferred to a psychiatric facility and treated with oral antibiotics. Discharge Plan Triage Chief Complaint: Mental Health ED Provider: Agustín Lua Dx/Rx/DC Orders Clinical Impression: Acute psychosis, Hx of paranoid schizophrenia, Auditory hallucination, Elevated blood-pressure reading without diagnosis of hypertension, Acute prerenal azotemia Prescriptions: No Action ascorbic acid (vitamin C) 1,000 mg tablet 1 g PO DAILY Patient Comments: TAKE 1 TABLET BY MOUTH DAILY guanfacine 2 mg tablet 2 mg PO .hs Patient Comments: TAKE 1 TABLET BY MOUTH AT BEDTIME quetiapine 300 mg tablet 300 mg PO QHS paroxetine HCl 20 mg tablet 20 mg PO QPM propranolol 20 mg tablet 20 mg PO QHS melatonin 5 mg tablet 5 mg PO QHS Primary Care Provider: Javid Graf Referrals: Javid Graf MD [Primary Care Provider] - Print Language: Slovenian Disposition Disposition: Psychiatric Hospital or Unit
[2024-11-01 23:11] LABS: Barbiturate Urine NEGATIVE (< 200 ng/mL); Benzodiazepine Urine NEGATIVE (< 200 ng/mL); PCP Urine NEGATIVE (< 25 ng/mL); THC Urine NEGATIVE (< 50 ng/mL)
[2024-11-01 23:21] LABS: Color, Urine Yellow (Yellow); Glucose, Dipstick Normal (Normal); Ketone-Dipstick Negative (Negative); Leukocyte Esterase-Dipstick 500 /ul (Negative); Nitrite-Dipstick Negative (Negative); Occult Blood-Urine 10 /ul (Negative); Protein-Dipstick 30 mg/dl (Negative); Specific Gravity, Urine 1.015 (1.002-1.030); Squamous Epithelial Cells - UA 0-5 SEEN /hpf (0-5); Urine Bilirubin Dipstick Negative (Negative)
[2024-11-01 23:58] LABS: Prothrombin Time (Protime)PT. 13.0 SECONDS (11.7-14.9)
--- NOTE | 2024-11-02 | CT_ITS ---
PROCEDURE: CT BRAIN/HEAD WITHOUT CONTRAST 11/01/2024 REASON FOR EXAM: CHANGE IN MENTAL STATUS TECHNIQUE: Procedure Code: CTBR Modality: CT Procedure: BRAIN/HEAD WITHOUT CONTRAST Coronal and Sagittal reconstruction series were provided. One or more dose reduction techniques were used (e.g., Automated exposure control, adjustment of the mA and/or kV according to patient size, use of iterative reconstruction technique. RADIATION DOSE SUMMARY: CTDlvol: 44.99 mGy DLP: 796.11 mGycm COMPARISON: 09/07/2022 FINDINGS: No acute intracranial hemorrhage, extra-axial collection, mass effect or evidence of acute infarct. Mild generalized brain parenchymal volume loss and chronic microangiopathic changes. Unremarkable orbits. Intact skull base and calvarium. Mild peripheral mucosal thickening in the floors of the bilateral maxillary sinuses. No mastoid effusions. CT/Brain/Head without Contrast IMPRESSION: No acute intracranial abnormality. Reading Location: [facility]
--- NOTE | 2024-11-02 04:05 | ED.RN ---
Attempted to call report x2 no answer.
[2024-11-02 06:43] VITALS: BP 148/76; PULSE 78; RESP 16; TEMP 36.6; O2SAT 99
--- NOTE | 2024-11-02 06:47 | ED.RN ---
this rn attempted multiple times to call report.
== END 2024-11-02 06:48 ==
PROVIDERS: Emergency Provider Emergency Medicine; PCP Family Medicine; Visit Provider Emergency Medicine
DX: F20.9 Schizophrenia, unspecified (principal); I10 Essential (primary) hypertension; Z87.891 Personal history of nicotine dependence; R03.0 Elevated blood-pressure reading, without diagnosis of hypertension; R79.89 Other specified abnormal findings of blood chemistry; I25.2 Old myocardial infarction; Z79.899 Other long term (current) drug therapy
CPT/HCPCS: 36415; 70450; 80053; 80307; 81001; 82077; 85025; 85610; 87077; 87086; 87088; 87186; 93005; 99283